=== PATIENT | female | born 1950 | race Caucasian/White ===

== ENCOUNTER → 2017-09-03 15:49 | Outpatient (CLI) | payer MEDICARE, SELFPAY ==
[2017-09-03 17:34] LABS: AST(SGOT) 16 U/L (15-37); Alanine Aminotransfer ALT/SGPT 20 U/L (13-56); Albumin, Serum 3.6 g/dL (3.2-5.0); Alkaline Phosphatase 78 U/L (45-117); Bilirubin, Direct 0.13 mg/dL (0.00-0.30); Globulin 4.1 g/dL (2.2-4.2); Protein, Total 7.7 g/dL (6.4-8.2)
== END ==
PROVIDERS: Family Provider Family Medicine; PCP Family Medicine; Visit Provider Dermatology
DX: Z79.899 Other long term (current) drug therapy (principal); L30.9 Dermatitis, unspecified
CPT/HCPCS: 36415; 80076

== ENCOUNTER 2017-09-17 21:01 | Emergency (ER) | payer MEDICARE, SELFPAY ==
[2017-09-17 21:02] VITALS: BP 130/67; PULSE 67; RESP 22; TEMP 36.9; O2SAT 98; BMI 28.3
--- NOTE | 2017-09-17 21:10 | CT_ITS ---
STUDY: CT ABDOMEN AND PELVIS WITH CONTRAST REASON FOR EXAM: Female, 67 years old. ABDOMINAL CRAMPING,NAUSEA AND VOMITING HX:GERD,HLD,MITRAL VALVE REPLACEMENT,HYSTERECTOMY RADIATION DOSAGE (If Supplied By Facility): CTDIvol = ( 16.15 ) mGy, DLP = ( 951.24 ) mGycm TECHNIQUE: Transaxial images were obtained from the dome of the diaphragm to the symphysis pubis without oral contrast. 100ML ml of Isovue 300 contrast was administered. Sagittal and coronal images were reconstructed. Individualized dose optimization techniques were used for this CT. COMPARISON: None. FINDINGS: The visualized lung bases are unremarkable. The heart is enlarged. Multiple median sternotomy wires are noted consistent for cardiac surgery. Normal liver. Normal gallbladder and extrahepatic biliary system. Normal spleen. Normal pancreas. Normal bilateral adrenal glands. Normal right kidney. Normal left kidney. Normal visualized stomach. There is mild enhancement and inflammation of the proximal jejunum. Minimal air-fluid levels are visualized in the small bowel. This may suggest an enteritis. There are multiple colonic diverticula consistent with diverticulosis. The appendix is visualized and appears normal. There are calcifications of the abdominal aorta and vascular structures. This is consistent for atherosclerotic disease. There is no abdominal aortic aneurysm. Normal inferior vena cava. Subcentimeter mesenteric lymph nodes. Normal urinary bladder. There is absence of the uterus consistent with a prior hysterectomy. 27 mm hypodensity near the left adnexa. This may be an ovarian cyst. Normal abdominal wall. There are degenerative changes of the osseous structures. CT/Abdomen/Pelvis W IV Cont ONLY IMPRESSION: There is mild enhancement and inflammation of the proximal jejunum. Minimal air-fluid levels are visualized in the small bowel. This may suggest an enteritis. Hysterectomy 27 mm hypodensity near the left adnexa. This may be an ovarian cyst. There are multiple diverticuli of the colon. There is diverticulosis but no radiographic signs for diverticulitis. Other findings as above. Electronically Signed: Bharath Ragsdale MD at 22:34 EDT , Service support ,
--- NOTE | 2017-09-17 21:10 | EKG12_ITS ---
Test Reason : AB PAIN Blood Pressure : / mmHG Vent. Rate : 055 BPM Atrial Rate : 055 BPM P-R Int : 212 ms QRS Dur : 110 ms QT Int : 468 ms P-R-T Axes : 067 051 071 degrees QTc Int : 447 ms Sinus bradycardia with 1st degree A-V block Incomplete left bundle branch block Borderline ECG Confirmed by LEANDRA KAUR, KAL ([id number]), editor managing newspaper ANTHONY LOPEZ ([id number]) on 09/21/2017 1:20:04 PM Referred By: BARRY Confirmed By:KAL MOBLEY MD
--- NOTE | 2017-09-17 21:14 | ED.DCSUM_ITS ---
- ER Visit Summary Date of Service: 09/17/17 Chief Complaint: Abdominal pain History of Present Illness: The patient is a 67 F presenting with abdominal pain starting this evening around 7 PM. She has had nausea and vomiting. She denies diarrhea or constipation. She states this began several hours after eating. She denies fever. Denies chest pain or shortness of breath. Denies urinary complaints. Denies other complaints. Physical Examination: Vitals are stable. Patient is afebrile. Alert no acute distress. HEENT exam is unremarkable. Neck is supple. Lungs are clear and equal bilaterally. Heart is regular rate and rhythm. Abdomen is soft mild diffuse tenderness with no rebound or guarding. Extremities are unremarkable. Skin is warm and dry. No focal neurologic deficit. Remainder of exam is unremarkable. Emergency Department Course and Treatment: Patient given morphine, Zofran with improvement. EKG sinus rhythm rate of 55 unchanged from previous. CBC, chemistries unremarkable. Liver lipase are normal. INR is 2.8. Troponin is negative. CT abdomen pelvis with IV only contrast shows mild enhancement and inflammation of the proximal jejunum. This may suggest an enteritis. Patient is resting comfortably in the ED. Repeat abdominal exam is soft and nontender with no rebound or guarding. She is given prescription for Bentyl. She is advised to follow-up with her primary care physician. She is advised strict return instructions should her symptoms worsen. She understands and is agreeable with plan. Disposition: Discharge home. Impression: Abdominal pain, enteritis This note was generated with [employer] dictation software. It may contain incorrect words, spelling, and punctuation that were not noted in review of the chart prior to signing ED Disposition - Plan for ED Patient: Chief Complaint: Abd Pain Instructions: ED Diet Vomiting Diarrhea Prescriptions: Dicyclomine HCl [Bentyl] 20 mg PO TIDAC PRN #20 capsule PRN Reason: Pain Referrals: Kishan Aguiar MD [Primary Care Provider] -
[2017-09-17] MEDS: Ondansetron 4 MG/2 ML Vial IV (21:16)
[2017-09-17] MEDS: Morphine 4 MG/ML Syringe IV (21:17)
[2017-09-17] MEDS: 0.9% Normal Saline 1,000 ML 1000 ML IV (21:17)
[2017-09-17 21:38] LABS: Absolute Lymphocyte Count 2.76 X10^3/ul (0.83-4.51); Absolute Neutrophil Count 7.1 X10^3/uL (2.0-7.7); Basophil# 0.03 X10^3/uL; Basophil% 0.3 % (0-1); Eosinophil# 0.26 X10^3/uL; Eosinophils% 2.4 % (0-5); Hematocrit 40.8 % (37-47); Hemoglobin 12.9 g/dl (12.0-15.0); Lymphocyte # 2.76 X10^3/ul (4.0); Lymphocyte % 25.3 % (19-41); Mean Corp Hgb Conc 31.6 g/gl (32-36); Mean Corpuscular Hgb 27.6 pg (27.0-32.0); Mean Corpuscular Volume 87.4 fL (81-99); Mean Platelet Vol. 9.2 fl (6.2-12.0); Monocyte# 0.76 X10^3/uL; Neutrophil # 7.08 X10^3/uL (2.7-7.7); Neutrophil % 64.8 % (47-70); Platelet Count 277 K/mm3 (150-450); RBC Distribution Width CV 14.5 % (11.6-14.6); Red Blood Count 4.67 M/mm3 (4.2-5.4); White Blood Count 10.9 K/mm3 (4.4-11.0)
[2017-09-17 21:54] LABS: POSITIVE COUNT NO; POSITIVE DIFFERENTIAL NO; POSITIVE MORPHOLOGY NO
[2017-09-17 21:58] LABS: AST(SGOT) 20 U/L (15-37); Alanine Aminotransfer ALT/SGPT 23 U/L (13-56); Albumin, Serum 3.6 g/dL (3.2-5.0); Alkaline Phosphatase 75 U/L (45-117); Anion Gap 10 (5-15); BUN 15 mg/dL (7-18); BUN/Creat Ratio 18.7 RATIO (10-20); Calcium,Total 8.9 mg/dL (8.5-10.1); Chloride 106 mmol/L (98-107); EST Glomerular Filtration Rate 75 mL/min (>60); Est Glom Filt Rate - Afr Amer 91 mL/min (>60); Estimated Creatinine Clearance 58.12 ml/min; Globulin 4.3 g/dL (2.2-4.2); Glucose 104 mg/dL (74-106); International Normalized Ratio 2.8; Lipase 213 U/L (73-393); Potassium 3.9 mmol/L (3.5-5.1); Protein, Total 7.9 g/dL (6.4-8.2); Prothrombin Time (Protime)PT. 29.7 SECONDS (11.7-14.9); Sodium Level 143 mmol/L (136-145)
[2017-09-17 22:37] LABS: Bacteria 0 SEEN /hpf (None Seen); Mucous, Urine 0 SEEN /hpf (<or=2+); Red Blood Cells-Urine 0 SEEN /hpf (0-5)
[2017-09-17 22:39] LABS: Color, Urine Yellow (Yellow); Glucose, Dipstick Normal (Normal); Ketone-Dipstick Negative (Negative); Leukocyte Esterase-Dipstick 500 /ul (Negative); Nitrite-Dipstick Negative (Negative); Occult Blood-Urine Negative /ul (Negative); Protein-Dipstick 15 mg/dl (Negative); Urine Bilirubin Dipstick Negative (Negative); Urine Clarity Sl. Cloudy (Clear); Urine Urobilinogen Normal (Normal)
[2017-09-17 22:46] LABS: Amorphous Sediment 1+ PHOS; Squamous Epithelial Cells - UA 0-5 SEEN /hpf (5-10); White Blood Cells 5-10 SEEN /hpf (0-5)
--- NOTE | 2017-09-17 22:52 | ED.DEP ---
ED Disposition - Plan for ED Patient: Chief Complaint: Abd Pain Instructions: ED Diet Vomiting Diarrhea Prescriptions: Ondansetron [Zofran Odt] 4 mg PO Q8H PRN PRN #10 tablet PRN Reason: Nausea Dicyclomine HCl [Bentyl] 20 mg PO TIDAC PRN #20 capsule PRN Reason: Pain Referrals: Kishan Aguiar MD [Primary Care Provider] -
--- NOTE | 2017-09-17 23:09 | ED.DEP ---
ED Disposition - Plan for ED Patient: Chief Complaint: Abd Pain Instructions: ED Diet Vomiting Diarrhea Prescriptions: Dicyclomine HCl [Bentyl] 20 mg PO TIDAC PRN #20 capsule PRN Reason: Pain Referrals: Kishan Aguiar MD [Primary Care Provider] -
[2017-09-17 23:54] VITALS: BP 135/77; PULSE 78; RESP 16; O2SAT 97
--- NOTE | 2017-09-17 23:54 | ED.RN ---
THIS RN IN TO DISCHARGE PT. PT'S SPOUSE HAS CONCERNS WITH TAKING PT HOME, WORRIED PAIN WILL RETURN AT HOME. DISCUSSED ENTERITIS IN GREAT DETAIL WITH PT AND SPOUSE INCLUDING SYMPTOMS, TREATMENT, HOME CARE, DIET, WHEN TO RETURN TO ED. BOTH PT AND SPOUSE REQUEST TO TALK SPEAK TO ED MD AGAIN PRIOR TO DC, MD AWARE.
[2017-09-18] MEDS: Dicyclomine 10 MG Capsule PO (00:29)
[2017-09-18 00:36] VITALS: BP 135/72; PULSE 64; RESP 15; O2SAT 96
--- NOTE | 2017-09-18 00:36 | ED.RN ---
PT AND SPOUSE REASSURED AND FEEL COMFORTABLE GOING HOME AFTER SPEAKING TO MD, HOME PACK MEDS GIVEN. PT AND SPOUSE AMBULATED OUT OF DEPT WITHOUT DIFFICULTY.
== END 2017-09-18 00:39 | disposition home or self-care (01) ==
LOC: ED 21:48
PROVIDERS: Emergency Provider Emergency Medicine; Family Provider Family Medicine; PCP Family Medicine
DX: K52.9 Noninfective gastroenteritis and colitis, unspecified (principal); I10 Essential (primary) hypertension; E78.00 Pure hypercholesterolemia, unspecified; I48.91 Unspecified atrial fibrillation; Z79.01 Long term (current) use of anticoagulants; M19.90 Unspecified osteoarthritis, unspecified site; Z79.899 Other long term (current) drug therapy
CPT/HCPCS: 74177; 80048; 80076; 81001; 83690; 84484; 85025; 85610; 87086; 87088; 93005; 96361; 96374; 96375; 99283; J7030; Q9967; J2405

== ENCOUNTER → 2017-09-30 07:44 | Outpatient (CLI) | payer MEDICARE, SELFPAY ==
[2017-09-30 10:03] LABS: International Normalized Ratio 2.1; Prothrombin Time (Protime)PT. 23.9 SECONDS (11.7-14.9)
== END ==
PROVIDERS: Family Provider Family Medicine; PCP Family Medicine; Visit Provider Internal Medicine Cardiovascular Disease
DX: Z95.2 Presence of prosthetic heart valve (principal); Z79.01 Long term (current) use of anticoagulants
CPT/HCPCS: 36415; 85610

== ENCOUNTER → 2017-10-05 08:39 | Outpatient (CLI) | payer MEDICARE, SELFPAY ==
[2017-10-05 09:55] LABS: International Normalized Ratio 2.3; Prothrombin Time (Protime)PT. 25.7 SECONDS (11.7-14.9)
== END ==
PROVIDERS: Family Provider Family Medicine; PCP Family Medicine; Visit Provider Internal Medicine Cardiovascular Disease
DX: Z95.2 Presence of prosthetic heart valve (principal); Z79.01 Long term (current) use of anticoagulants
CPT/HCPCS: 36415; 85610

== ENCOUNTER → 2017-10-27 10:47 | Outpatient (CLI) | payer MEDICARE, SELFPAY ==
--- NOTE | 2017-10-27 10:49 | ECHOD_ITS ---
Reason For Study: BICUSPID AV Procedure This was a 2D Doppler, Color Flow transthoracic echocardiogram. Exam performed in department. Left Ventricle Mild concentric left ventricular hypertrophy. The estimated ejection fraction is 60 %. Septal motion consistent with IVCD. No regional wall motion abnormalities noted. Right Ventricle Normal size and thickness. Normal systolic function. Atria The left atrium is severely enlarged. Normal right atrium. Normal atrial septum. Mitral Valve Peak transmitral valve gradient 19 mmHg. Mean transmitral valve gradient 5 mmHg. Stable appearing mechanical mitral valve apparatus. Normal prosthetic mitral valve. Tricuspid Valve Normal tricuspid valve. Trivial tricuspid valve insufficiency. Right ventricular systolic pressure estimated to be 33 mmHg. Aortic Valve Fusion of left and right coronary cusp with moderate thickening of remaining non-coronary cusp, c/w functional bicuspid aortic valve. Moderate restriction of the aortic valve. Severe aortic stenosis. Peak aortic valve gradient 51 mmHg. Mean aortic valve gradient 30 mmHg. Calculated aortic valve area (continuity equation) is 0.72 cm2. Pulmonic Valve Normal pulmonic valve. Trivial pulmonic valve insufficiency. Great Vessels Normal aortic root. Normal arch. Normal inferior vena cava. Inferior vena cava collapse with sniff. Pericardium/Pleural No pericardial effusion. MMode/2D Measurements & Calculations LVIDd: 4.6 cm IVSd: 1.4 cm LVOT diam: 2.1 cm LVIDs: 3.2 cm LVPWd: 1.1 cm LVOT area: 3.6 cm2 RVDd: 3.2 cm FS: 31.1 % Ao root diam: 2.9 cm LAV(MOD-bp): 99.2 ml EDV(MOD-sp4): 99.6 ml LAV(MOD-bp) Indexed: 55.5 ml/m2 ESV(MOD-sp4): 47.6 ml LAV(MOD-sp2): 90.0 ml EF(MOD-sp4): 52.3 % LAV(MOD-sp4): 107.9 ml SV(MOD-sp4): 52.1 ml LA A4 area: 27.2 cm2 RA A4 area: 15.7 cm2 Doppler Measurements & Calculations MV E max favio: 166.6 cm/sec Lat Peak E' Favio: 10.1 cm/sec Med Peak E' Favio: 7.2 cm/sec MV A max favio: 55.9 cm/sec E/E' lat: 16.5 E/E' med: 23.2 MV E/A: 3.0 MV V2 max: 214.9 cm/sec Ao V2 max: 356.3 cm/sec LV V1 max: 72.6 cm/sec MV max P.5 mmHg Ao max P.8 mmHg LV V1 max P.1 mmHg MV V2 mean: 93.4 cm/sec Ao V2 mean: 257.8 cm/sec LV V1 mean P.3 mmHg MV mean P.5 mmHg Ao mean P.0 mmHg LV V1 mean: 53.1 cm/sec MV V2 VTI: 46.5 cm Ao V2 VTI: 94.4 cm LV V1 VTI: 18.6 cm MVA(VTI): 1.4 cm2 DEBORAH(I,D): 0.71 cm2 DEBORAH(V,D): 0.73 cm2 SV(LVOT): 66.8 ml PA V2 max: 75.4 cm/sec TR max favio: 266.0 cm/sec TR max P.4 mmHg Interpretation Summary Mild concentric left ventricular hypertrophy. The estimated ejection fraction is 60 %. The left atrium is severely enlarged. Trivial tricuspid valve insufficiency. Right ventricular systolic pressure estimated to be 33 mmHg. Fusion of left and right coronary cusp with moderate thickening of remaining non-coronary cusp, c/w functional bicuspid aortic valve. Moderate to severe aortic stenosis. Peak aortic valve gradient 51 mmHg. Mean aortic valve gradient 30 mmHg. Moderate restriction of the aortic valve. Compared to echo report dated 05/23/2009, LV function and RVSP has remained the same, but aortic stenosis has gone from mild to moderate/severe. Normal prosthetic [place] mitral valve. Ordering Physician: Billy Murray Referring Physician: HAILEE العلي Performed By: Mayra Roman RDCS
== END ==
PROVIDERS: Family Provider Family Medicine; PCP Family Medicine; Visit Provider Internal Medicine Cardiovascular Disease
DX: I27.29 Other secondary pulmonary hypertension (principal)
CPT/HCPCS: 93306

== ENCOUNTER → 2017-11-17 15:38 | Outpatient (CLI) | payer MEDICARE, SELFPAY ==
--- NOTE | 2017-11-17 15:41 | RAD_ITS ---
STUDY: X-RAY - THORACIC SPINE REASON FOR EXAM: Female, 67 years old. Back pain TECHNIQUE: 3 view(s) of the thoracic spine were obtained. COMPARISON: None. FINDINGS: Median sternotomy, mild cardiomegaly. No acute intrathoracic process is evident. Posterior rims intact. Medial clavicle is intact. Vertebral body alignment normal. Mild osteopenia. Minimal disc degenerative features. Very slight superior endplate compression, minimal wedging, at approximately T9. This could be associated with Schmorl's node. Acuity uncertain. It is associated with mild anterior osteophytic lipping at the disc margin, a chronic degenerative features. RAD/Thoracic Spine 3 Views IMPRESSION: Minimal thoracic spondylosis. Mild superior endplate compression at the approximate T9 level of uncertain chronicity. Whether this represents a compression fracture, or superior endplate Schmorl's node is unknown. Correlate clinically for any symptoms of acute compression fracture. Follow-up MRI of the spine would provide optimal characterization. Electronically Signed: Ari Hernandez, at 11:01 EDT Tel , Service support ,
== END ==
PROVIDERS: Family Provider Family Medicine; PCP Family Medicine; Visit Provider Family Medicine
DX: M47.894 Other spondylosis, thoracic region (principal)
CPT/HCPCS: 72072

== ENCOUNTER → 2018-01-13 07:25 | Outpatient (CLI) | payer MEDICARE, SELFPAY ==
[2018-01-13 08:56] LABS: Hematocrit 40.9 % (37-47); Hemoglobin 13.1 g/dl (12.0-15.0); Mean Corpuscular Hgb 27.8 pg (27.0-32.0); Mean Corpuscular Volume 86.8 fL (81-99); Mean Platelet Vol. 9.1 fl (6.2-12.0); Platelet Count 297 K/mm3 (150-450); RBC Distribution Width CV 14.6 % (11.6-14.6); RBC Distribution Width SD 46.1 fl (35.1-43.9); Red Blood Count 4.71 M/mm3 (4.2-5.4); White Blood Count 6.4 K/mm3 (4.4-11.0)
[2018-01-13 09:02] LABS: Scan Indicated on CBC? Y/N NO
[2018-01-13 09:25] LABS: Anion Gap 7 (5-15); BUN 13 mg/dL (7-18); BUN/Creat Ratio 16.1 RATIO (10-20); Chloride 107 mmol/L (98-107); Creatinine, Serum 0.81 mg/dL (0.55-1.02); EST Glomerular Filtration Rate 75 mL/min (>60); Est Glom Filt Rate - Afr Amer 91 mL/min (>60); Glucose 89 mg/dL (74-106); Potassium 4.1 mmol/L (3.5-5.1); Sodium Level 142 mmol/L (136-145)
== END ==
PROVIDERS: Family Provider Family Medicine; PCP Family Medicine
DX: I35.0 Nonrheumatic aortic (valve) stenosis (principal); Z95.2 Presence of prosthetic heart valve; Z79.01 Long term (current) use of anticoagulants
CPT/HCPCS: 36415; 80048; 85027

== ENCOUNTER → 2018-01-20 07:59 | Outpatient (CLI) | payer MEDICARE, SELFPAY ==
[2018-01-20 08:49] LABS: AST(SGOT) 16 U/L (15-37); Alanine Aminotransfer ALT/SGPT 20 U/L (13-56); Albumin, Serum 3.7 g/dL (3.2-5.0); Alkaline Phosphatase 77 U/L (45-117); Bilirubin, Direct 0.13 mg/dL (0.00-0.30); Cholesterol 184 mg/dL (200); Globulin 4.1 g/dL (2.2-4.2); High Density Lipoprotein 65 mg/dL; Protein, Total 7.8 g/dL (6.4-8.2); Triglycerides 145 mg/dL; Very Low Density Lipoprotein 29 mg/dL (5-40)
== END ==
PROVIDERS: Physician Assistant Medical; Family Provider Family Medicine; PCP Family Medicine; Visit Provider Internal Medicine Cardiovascular Disease
DX: E78.5 Hyperlipidemia, unspecified (principal); Z79.899 Other long term (current) drug therapy
CPT/HCPCS: 36415; 80061; 80076

== ENCOUNTER → 2018-06-14 09:44 | Outpatient (CLI) | payer MEDICARE, SELFPAY ==
[2018-06-14 10:33] LABS: International Normalized Ratio 3.2; Prothrombin Time (Protime)PT. 32.8 SECONDS (11.7-14.9)
== END ==
PROVIDERS: Family Provider Family Medicine; PCP Family Medicine; Referring Provider Family Medicine; Visit Provider Family Medicine
DX: Z95.2 Presence of prosthetic heart valve (principal)
CPT/HCPCS: 36415; 85610

== ENCOUNTER → 2018-08-31 14:00 | Outpatient (CLI) | payer MEDICARE, SELFPAY ==
[2018-07-15 15:27] VITALS: BMI 27.4
--- NOTE | 2018-08-31 14:05 | RAD_ITS ---
STUDY: X-RAY - RIGHT FOOT CLINICAL: Chronic pain in fourth toe. TECHNIQUE: 3 view(s) of the foot. COMPARISON: None. FINDINGS: Normal talus, calcaneus, and tarsal bones. Normal visualized subtalar, talonavicular, calcaneocuboid, tarsal and tarsometatarsal articulations. There are healed osteotomies of the first and second metatarsals with orthopedic screws. There is mild joint space narrowing of the metatarsophalangeal joint of the great toe. Normal tibial and fibular sesamoid bones. Normal interphalangeal joint of the great toe. Normal phalanges of the great toe. Normal second through fifth metatarsophalangeal joints. There is osseous fusion of the second and third proximal interphalangeal joints. There is joint space narrowing of the fourth and fifth proximal interphalangeal joints. The soft tissue structures are unremarkable. 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 Mild arthrosis of the first metatarsophalangeal joint. Postoperative changes. Electronically Signed: Pete Jean MD at 13:16 EDT Tel , Service support ,
== END ==
PROVIDERS: Family Provider Family Medicine; PCP Family Medicine; Referring Provider Family Medicine; Visit Provider Family Medicine
DX: M19.071 Primary osteoarthritis, right ankle and foot (principal)
CPT/HCPCS: 73630

== ENCOUNTER → 2018-09-07 14:18 | Outpatient (CLI) | payer MEDICARE, SELFPAY ==
[2018-07-15 15:27] VITALS: BMI 27.4
--- NOTE | 2018-09-07 14:21 | RAD_ITS ---
STUDY: X-RAY - PELVIS REASON FOR EXAM: Female, 68 years old. Pain. TECHNIQUE: One view of the pelvis was obtained. COMPARISON: None. FINDINGS: There is a non-specific bowel gas pattern. Normal visualized soft tissue structures. Normal bilateral iliac wings, sacroiliac joints and visualized sacrum. Normal visualized bilateral superior and inferior pubic rami. Normal pubic symphysis. Normal ischial tuberosities. Normal visualized right femoral head. Normal right acetabulum. Normal right hip joint. Normal visualized left femoral head. Normal left acetabulum. Normal left hip joint. RAD/Pelvis 1 or 2 Views IMPRESSION: Normal x-ray examination of the pelvis. Electronically Signed: Shailesh Briceno MD at 14:36 EDT , Service support ,
--- NOTE | 2018-09-07 14:21 | RAD_ITS ---
HISTORY: Pain EXAM:XR Chest 2 Views: COMPARISON: 11/12/2015 FINDINGS: Shallow inspiration with chronic appearing bibasilar mild interstitial thickening. No acute infiltrate. No vascular congestion or pleural effusion. Mild cardiomegaly with aortic root stent graft in place. Previous median sternotomy. No pneumothorax. RAD/Chest PA and Lateral IMPRESSION: 1. No acute cardiopulmonary disease. 2. Mild cardiomegaly with thoracic aortic root stent graft in place. at 0257 Reported and signed by: Ernesto Mckoy MD Electronically Signed: Ernesto Mckoy, at 2:56 EDT Tel , Service support ,
[2018-09-07 17:42] LABS: Absolute Lymphocyte Count 1.16 X10^3/ul (0.83-4.51); Absolute Neutrophil Count 5.2 X10^3/uL (2.0-7.7); Basophil# 0.01 X10^3/uL; Basophil% 0.1 % (0-1); Eosinophil# 0.15 X10^3/uL; Eosinophils% 2.1 % (0-5); Hematocrit 39.2 % (37-47); Hemoglobin 11.8 g/dl (12.0-15.0); Lymphocyte # 1.16 X10^3/ul (4.0); Mean Corp Hgb Conc 30.1 g/gl (32-36); Mean Corpuscular Volume 86.5 fL (81-99); Mean Platelet Vol. 8.9 fl (6.2-12.0); Monocyte# 0.71 X10^3/uL; Monocyte% 9.8 % (0-10); Neutrophil # 5.21 X10^3/uL (2.7-7.7); Neutrophil % 71.7 % (47-70); Platelet Count 359 K/mm3 (150-450); RBC Distribution Width CV 15.1 % (11.6-14.6); RBC Distribution Width SD 47.2 fl (35.1-43.9); Red Blood Count 4.53 M/mm3 (4.2-5.4); White Blood Count 7.3 K/mm3 (4.4-11.0)
[2018-09-07 17:43] LABS: ALB/GLOB Ratio 0.8 RATIO (0.9-2.4); AST(SGOT) 16 U/L (15-37); Alanine Aminotransfer ALT/SGPT 17 U/L (13-56); Albumin, Serum 3.6 g/dL (3.2-5.0); Alkaline Phosphatase 82 U/L (45-117); Anion Gap 8 (5-15); BUN 13 mg/dL (7-18); BUN/Creat Ratio 18.7 RATIO (10-20); Calcium,Total 9.1 mg/dL (8.5-10.1); Chloride 104 mmol/L (98-107); EST Glomerular Filtration Rate 89 mL/min (>60); Est Glom Filt Rate - Afr Amer 107 mL/min (>60); Globulin 4.4 g/dL (2.2-4.2); Glucose 84 mg/dL (74-106); Potassium 3.8 mmol/L (3.5-5.1); Rheumatoid Factor < 10.0 IU/mL (<15); Sodium Level 139 mmol/L (136-145)
[2018-09-07 17:59] LABS: POSITIVE COUNT NO; POSITIVE DIFFERENTIAL NO; POSITIVE MORPHOLOGY NO
[2018-09-07 18:02] LABS: Erythrocyte Sedimentation Rate 24 mm/hr (0-30)
[2018-09-09 11:01] LABS: T4 Free Direct 0.95 ng/dL (0.76-1.46); Thyroid Stim Hormone (TSH) 0.48 uIU/mL (0.358-3.74)
[2018-09-09 15:35] LABS: ANTINUCLEAR ANTIBODIES DIRECT Negative (Negative)
[2018-09-14 20:07] LABS: QNTFERON TB Mitogen Value > 10.00 IU/mL (.); QNTFERON TB Nil Value 0.04 IU/mL (.); QNTFERON TB1+ Ag Value 0.04 IU/mL (.); QNTFERON TB2+ Ag Value 0.05 IU/mL (.)
[2018-09-15 11:43] LABS: CCP IgG Antibodies 9 units (0-19); HEPATITIS B SURFACE AG Negative (Negative); HLA B27 Negative (.); Hep B Surface Antibodies Non Reactive (.); Hep C Antibodies <0.1 s/co ratio (0.0-0.9); QNTIFERON TB Positive Criteria Negative (Negative)
== END ==
PROVIDERS: Family Provider Family Medicine; PCP Family Medicine; Referring Provider Internal Medicine Rheumatology; Visit Provider Internal Medicine Rheumatology
DX: L40.59 Other psoriatic arthropathy (principal); M15.9 Polyosteoarthritis, unspecified; L40.8 Other psoriasis; I48.0 Paroxysmal atrial fibrillation; K21.9 Gastro-esophageal reflux disease without esophagitis; Z79.899 Other long term (current) drug therapy
CPT/HCPCS: 36415; 71046; 72170; 80053; 81374; 84439; 84443; 85025; 85652; 86038; 86140; 86200; 86431; 86480; 86706; 86803; 87340

== ENCOUNTER → 2018-10-04 13:50 | Outpatient (CLI) | payer MEDICARE, SELFPAY ==
[2018-10-04 12:25] VITALS: BMI 27.4
[2018-10-04 14:01] LABS: Bacteria 0 SEEN /hpf (None Seen); Mucous, Urine 0 SEEN /hpf (<or=2+); Squamous Epithelial Cells - UA 0 SEEN /hpf (5-10); White Blood Cells 0 SEEN /hpf (0-5)
[2018-10-04 14:06] LABS: Color, Urine Yellow (Yellow); Glucose, Dipstick Normal (Normal); Ketone-Dipstick Negative (Negative); Leukocyte Esterase-Dipstick 25 /ul (Negative); Nitrite-Dipstick Negative (Negative); Occult Blood-Urine Negative /ul (Negative); Protein-Dipstick Negative (Negative); Urine Bilirubin Dipstick Negative (Negative); Urine Clarity Clear (Clear); Urine Urobilinogen Normal (Normal)
[2018-10-04 14:15] LABS: Red Blood Cells-Urine 0-5 SEEN /hpf (0-5)
== END ==
PROVIDERS: Family Provider Family Medicine; PCP Family Medicine; Referring Provider Physician Assistant Surgical; Visit Provider Physician Assistant Surgical
DX: N39.0 Urinary tract infection, site not specified (principal)
CPT/HCPCS: 81001; 87086

== ENCOUNTER → 2018-11-30 13:49 | Outpatient (CLI) | payer MEDICARE, SELFPAY ==
[2018-11-18 13:55] VITALS: BMI 24.8
[2018-11-30 15:29] LABS: Absolute Lymphocyte Count 1.19 X10^3/ul (0.83-4.51); Absolute Neutrophil Count 5.9 X10^3/uL (2.0-7.7); Basophil# 0.01 X10^3/uL; Basophil% 0.1 % (0-1); Eosinophil# 0.21 X10^3/uL; Eosinophils% 2.6 % (0-5); Hematocrit 38.6 % (37-47); Hemoglobin 12.2 g/dl (12.0-15.0); Lymphocyte # 1.19 X10^3/ul (4.0); Lymphocyte % 14.8 % (19-41); Mean Corp Hgb Conc 31.6 g/gl (32-36); Mean Corpuscular Hgb 26.7 pg (27.0-32.0); Mean Corpuscular Volume 84.5 fL (81-99); Monocyte# 0.72 X10^3/uL; Monocyte% 8.9 % (0-10); Neutrophil % 73.4 % (47-70); Platelet Count 283 K/mm3 (150-450); RBC Distribution Width CV 16.5 % (11.6-14.6); RBC Distribution Width SD 50.3 fl (35.1-43.9); Red Blood Count 4.57 M/mm3 (4.2-5.4); White Blood Count 8.1 K/mm3 (4.4-11.0)
[2018-11-30 15:34] LABS: POSITIVE COUNT NO; POSITIVE DIFFERENTIAL NO; POSITIVE MORPHOLOGY NO
[2018-11-30 15:43] LABS: AST(SGOT) 16 U/L (15-37); Alanine Aminotransfer ALT/SGPT 18 U/L (13-56); Albumin, Serum 3.7 g/dL (3.2-5.0); Alkaline Phosphatase 81 U/L (45-117); Anion Gap 5 (5-15); BUN 13 mg/dL (7-18); Calcium,Total 9.1 mg/dL (8.5-10.1); Chloride 109 mmol/L (98-107); Creatinine, Serum 0.76 mg/dL (0.55-1.02); EST Glomerular Filtration Rate 80 mL/min (>60); Est Glom Filt Rate - Afr Amer 96 mL/min (>60); Globulin 3.7 g/dL (2.2-4.2); Glucose 86 mg/dL (74-106); Potassium 3.6 mmol/L (3.5-5.1); Protein, Total 7.4 g/dL (6.4-8.2); Sodium Level 140 mmol/L (136-145)
== END ==
PROVIDERS: Family Provider Family Medicine; PCP Family Medicine; Visit Provider Internal Medicine Rheumatology
DX: L40.59 Other psoriatic arthropathy (principal); M15.9 Polyosteoarthritis, unspecified; L40.8 Other psoriasis; K21.9 Gastro-esophageal reflux disease without esophagitis; I48.0 Paroxysmal atrial fibrillation; F32.89 Other specified depressive episodes; E78.5 Hyperlipidemia, unspecified; J45.909 Unspecified asthma, uncomplicated; Z95.2 Presence of prosthetic heart valve; I44.7 Left bundle-branch block, unspecified; Z79.899 Other long term (current) drug therapy
CPT/HCPCS: 36415; 80053; 85025

== ENCOUNTER → 2018-12-07 15:34 | Outpatient (CLI) | payer MEDICARE, SELFPAY ==
[2018-11-18 13:55] VITALS: BMI 24.8
--- NOTE | 2018-12-07 15:58 | BD_ITS ---
STUDY: DUAL ENERGY X-RAY ABSORPTIOMETRY / DXA REASON FOR EXAM: Female, 68 years old. The patient is postmenopausal. Loss of height. TECHNIQUE: Bone Mineral Density (BMD) measurements of lumbar spine and bilateral hips were obtained. COMPARISON: Comparison is made with prior study dated February 04, 2011. FINDINGS: Lumbar Spine (L1-L4): g/cm2 (0.914) / T-score (-2.2) / Z-score (-0.6) Findings are suggestive of osteopenia with a moderate fracture risk. Left Femur Total: g/cm2 (0.708) / T-score (-2.4) / Z-score (-0.9) Left Femoral Neck: g/cm2 (0.669) / T-score (-2.7) / Z-score (-1.0) Right Femur Total: g/cm2 (0.703) / T-score (-2.4) / Z-score (-1.0) Right Femoral Neck: g/cm2 (0.661) / T-score (-2.7) / Z-score (-1.0) The T-Scores on the most recent prior examination were: Lumbar Spine (L1-L4): There has been worsening of bone density since the previous examination. Left Femur Total: which represents a worsening of 11.7%. Right Femur Total: which represents a worsening of 10.2%. BD/Dexa Bone Density Study IMPRESSION: The patient is considered osteoporotic as outlined below according to World Rich Organization (WHO) criteria with a high fracture risk. There has been worsening of bone density since the previous examination. Reference Information: The T-score is the number of standard deviations above or below the standard which is normal for young adults at their peak bone mineral density. The World Health Organization (WHO) interprets the T-scores as follows: Above -1 Normal bone density Between -1 and -2.5 Osteopenia Equal to / or below -2.5 Osteoporosis As a practical clinical guideline, osteopenia may be graded as follows: Mild -1 through -1.5 Moderate -1.6 through -2.0 Severe -2.1 through -2.4 The Z-score is the number of standard deviations above or below age-matched controls. A Z-score of less than -1.5 would be considered abnormal. References: 1. NIH Osteoporosis and Related Bone Diseases http://www.osteo.org 2. International Society for Clinical Densitometry http://www.iscd.org 3. National Osteoporosis Foundation http://www.nof.org Electronically Signed: Eric Villanueva, at 15:05 EDT , Service support ,
== END ==
PROVIDERS: Family Provider Family Medicine; PCP Family Medicine; Referring Provider Family Medicine; Visit Provider Family Medicine
DX: M85.80 Other specified disorders of bone density and structure, unspecified site (principal); Z79.52 Long term (current) use of systemic steroids
CPT/HCPCS: 77080

== ENCOUNTER → 2018-12-27 07:37 | Outpatient (CLI) | payer MEDICARE, SELFPAY ==
[2018-11-18 13:55] VITALS: BMI 24.8
--- NOTE | 2018-12-27 07:40 | ECHOD_ITS ---
Reason For Study: Valve Replacement Eval Procedure This was a 2D Doppler, Color Flow transthoracic echocardiogram. Exam performed in department. Left Ventricle Mild concentric left ventricular hypertrophy. The estimated ejection fraction is 60 %. Septal motion consistent with IVCD. No regional wall motion abnormalities noted. Right Ventricle Moderately dilated right ventricle. Normal systolic function. Atria The left atrium is moderately enlarged. Normal right atrium. Normal atrial septum. Mitral Valve Peak transmitral valve gradient 8 mmHg. Mean transmitral valve gradient 3 mmHg. Bioprosthetic mitral valve. Tricuspid Valve Normal tricuspid valve. Mild (1+) tricuspid valve insufficiency. Right ventricular systolic pressure estimated to be 34 mmHg. Aortic Valve Peak aortic valve gradient 10 mmHg. Mean aortic valve gradient 5 mmHg. Bioprosthetic aortic valve. Pulmonic Valve Normal pulmonic valve. Trivial pulmonic valve insufficiency. Great Vessels Normal aortic root. Normal arch. Normal inferior vena cava. Inferior vena cava collapse with sniff. Pericardium/Pleural No pericardial effusion. MMode/2D Measurements & Calculations LVIDd: 4.2 cm IVSd: 1.4 cm Ao root diam: 2.8 cm LVIDs: 3.1 cm LVPWd: 1.3 cm RVDd: 5.0 cm FS: 26.9 % LAV(MOD-bp): 90.7 ml LVAd ap4: 28.1 cm2 SV(MOD-sp4): 45.4 ml LAV(MOD-bp) Indexed: 53.0 ml/m2 EDV(MOD-sp4): 81.9 ml LAV(MOD-sp2): 91.7 ml EDV(sp4-el): 84.4 ml LAV(MOD-sp4): 81.7 ml LVAs ap4: 17.9 cm2 ESV(MOD-sp4): 36.5 ml ESV(sp4-el): 36.5 ml EF(MOD-sp4): 55.4 % EF(sp4-el): 56.7 % SV(sp4-el): 47.8 ml LA A4 area: 23.9 cm2 LA dimension(2D): 5.1 cm RA A4 area: 15.2 cm2 Time Measurements MV dec time: 0.15 sec Doppler Measurements & Calculations MV E max favio: 106.8 cm/sec Lat Peak E' Favio: 5.4 cm/sec Med Peak E' Favio: 5.8 cm/sec MV A max favio: 53.4 cm/sec E/E' lat: 19.7 E/E' med: 18.4 MV E/A: 2.0 MV V2 max: 139.7 cm/sec MV P1/2t max favio: 137.4 cm/sec Ao V2 max: 158.8 cm/sec MV max P.8 mmHg MV P1/2t: 95.0 msec Ao max P.1 mmHg MV V2 mean: 74.3 cm/sec Ao V2 mean: 107.0 cm/sec MV mean P.6 mmHg MV dec slope: 423.7 cm/sec2 Ao mean P.2 mmHg MV V2 VTI: 40.0 cm MVA(P1/2t): 2.3 cm2 Ao V2 VTI: 32.0 cm LV V1 max: 94.7 cm/sec PA V2 max: 70.3 cm/sec TR max favio: 277.8 cm/sec LV V1 max P.6 mmHg TR max P.9 mmHg Interpretation Summary Mild concentric left ventricular hypertrophy. The estimated ejection fraction is 60 %. Moderately dilated right ventricle. The left atrium is moderately enlarged. Normal functioning bioprosthetic mitral valve. Mild (1+) tricuspid valve insufficiency. Right ventricular systolic pressure estimated to be 34 mmHg. Normal functioning bioprosthetic aortic valve. Compared to echo report dated 10/27/2017, aortic and mitral valves have been replaced. LV function has remained the same. RVSP has remained the same. Ordering Physician: Billy Murray Referring Physician: Billy Murray Performed By: Wilma Franz, CANDACE, RVT
== END ==
PROVIDERS: Family Provider Family Medicine; PCP Family Medicine; Referring Provider Internal Medicine Cardiovascular Disease; Visit Provider Internal Medicine Cardiovascular Disease
DX: Z95.2 Presence of prosthetic heart valve (principal)
CPT/HCPCS: 93306

== ENCOUNTER → 2019-02-07 11:44 | Outpatient (CLI) | payer MEDICARE, SELFPAY ==
[2018-11-18 13:55] VITALS: BMI 24.8
--- NOTE | 2019-02-07 11:48 | RAD_ITS ---
STUDY: X-RAY - RIGHT KNEE REASON FOR EXAM: Female, 68 years old. Fall, right knee pain TECHNIQUE: 4 view(s) of the knee. COMPARISON: None. FINDINGS: Small suprapatellar knee joint effusion. Osseous structures are intact, mildly osteopenic. Periarticular soft tissues unremarkable. There are no significant degenerative features of the knee. RAD/Knee 4 or More Views IMPRESSION: Small effusion, no acute traumatic osseous injury, no significant DJD. Electronically Signed: Ari Hernandez MD at 13:49 EDT Tel , Service support ,
--- NOTE | 2019-02-07 11:48 | RAD_ITS ---
STUDY: X-RAY - LUMBAR SPINE REASON FOR EXAM: Female, 68 years old. Fall, lower back and tailbone pain. TECHNIQUE: 5 view(s) of the lumbar spine were obtained. COMPARISON: None. FINDINGS: Mild S-shaped sclerotic curvature of the lumbar spine. Preserved lordosis. Normal vertebral body height and alignment with no significant disc degenerative features. Mild low lumbar facet arthropathy L4-L5, L5-S1. Lower ribs, upper medial pelvis and sacrum within the field of view exhibit no acute process. No acute intra-abdominal process is evident. RAD/L/S Spine Min 4 Views IMPRESSION: Mild scoliosis and low lumbar facet arthropathy. No acute fracture or traumatic subluxation. Electronically Signed: Ari Hernandez MD at 13:52 EDT Tel , Service support ,
--- NOTE | 2019-02-07 11:50 | RAD_ITS ---
STUDY: X-RAY - SACRUM/COCCYX REASON FOR EXAM: Female, 68 years old. Fall, tailbone pain. TECHNIQUE: 4 view(s) of the sacrum and coccyx were obtained. COMPARISON: None. FINDINGS: Osteopenia. The sacral arcades appear intact and symmetric. The coccyx is midline in the frontal view. Mild symmetric SI joint degenerative changes. The coccyx is normally aligned without evident fracture in the lateral view. Normal sacrum. Mild low lumbar scoliosis. Normal low lumbar vertebral body height and alignment with no significant disc degeneration. Mild facet arthropathy L4-L5, L5-S1. RAD/Sacrum-Coccyx min 2 Views IMPRESSION: No evidence of acute sacrococcygeal injury. Electronically Signed: Ari Hernandez MD at 13:51 EDT Tel , Service support ,
== END ==
PROVIDERS: Family Provider Family Medicine; PCP Family Medicine; Referring Provider Family Medicine; Visit Provider Family Medicine
DX: M54.16 Radiculopathy, lumbar region (principal); M25.561 Pain in right knee; R35.0 Frequency of micturition
CPT/HCPCS: 72110; 72220; 73564; 87077; 87086; 87088; 87186

== ENCOUNTER → 2019-02-17 09:17 | Outpatient (CLI) | payer MEDICARE, SELFPAY ==
[2018-11-18 13:55] VITALS: BMI 24.8
--- NOTE | 2019-02-17 09:29 | US_ITS ---
STUDY: RENAL ULTRASOUND - COMPLETE REASON FOR EXAM: Female, 68 years old. Recurrent UTIs TECHNIQUE: Ultrasound evaluation of the kidneys was performed with real-time and static coates-scale imaging. COMPARISON: Previous study of 01/20/2014 FINDINGS: RIGHT KIDNEY: Normal location of the right kidney, which is normal in size. The right kidney measures 10.3 x 5.1 x 4.3 cm. There is a normal cortex of the right kidney. The renal cortex measures 1.2 cm. There is no right renal mass or cyst. There are no right renal calculi. There is no right hydronephrosis. DISTAL RIGHT URETER: There is non-visualization of the distal right ureter. There is no demonstrated right ureterovesical junction calculus. There is a visualized right ureteral jet. LEFT KIDNEY: Normal location of the left kidney, which is normal in size. The left kidney measures 10.4 x 5.3 x 4.6 cm. There is a normal cortex of the left kidney. The renal cortex measures 1.1 cm. There are 2 small left renal cysts measuring 7 x 8 x 7 mm and 10 x 9 x 9 mm respectively. There are no left renal calculi. There is no left hydronephrosis. DISTAL LEFT URETER: There is non-visualization of the distal left ureter. There is no demonstrated left ureterovesical junction calculus. There is a visualized left ureteral jet. BLADDER: The distended urinary bladder has a volume of 549 ml. The empty urinary bladder has a volume of 27 ml. There is a normal wall thickness of the distended urinary bladder. There is no demonstrated mass within the urinary bladder. There are no demonstrated bladder calculi. US/Kidney and Bladder IMPRESSION: 2 small cysts of the left kidney. The right kidney and urinary bladder appear within normal limits. Electronically Signed: Heraclio Way MD at 17:16 EDT , Service support ,
== END ==
PROVIDERS: Family Provider Family Medicine; PCP Family Medicine; Referring Provider Urology; Visit Provider Urology
DX: N39.0 Urinary tract infection, site not specified (principal)
CPT/HCPCS: 76770

== ENCOUNTER → 2019-02-24 08:59 | Outpatient (CLI) | payer MEDICARE, SELFPAY ==
[2018-11-18 13:55] VITALS: BMI 24.8
[2019-02-24 10:02] LABS: Absolute Lymphocyte Count 0.97 X10^3/uL (0.83-4.51); Absolute Neutrophil Count 5.9 X10^3/uL (2.0-7.7); Basophil# 0.03 X10^3/uL; Basophil% 0.4 % (0-1); Eosinophil# 0.23 X10^3/uL; Eosinophils% 2.9 % (0-5); Hematocrit 40.1 % (37-47); Hemoglobin 12.4 g/dL (12.0-15.0); Lymphocyte # 0.97 X10^3/ul (4.0); Lymphocyte % 12.1 % (19-41); Mean Corp Hgb Conc 30.9 g/dL (32-36); Mean Corpuscular Hgb 28.2 pg (27.0-32.0); Mean Corpuscular Volume 91.1 fL (81-99); Mean Platelet Vol. 8.8 fl (6.2-12.0); Monocyte# 0.89 X10^3/uL; Monocyte% 11.1 % (0-10); NRBC Flagged by Analyzer 0 % (0-5); Neutrophil % 73.3 % (47-70); Platelet Count 259 K/mm3 (150-450); RBC Distribution Width CV 15.1 % (11.6-14.6)
[2019-02-24 10:35] LABS: ALB/GLOB Ratio 0.9 RATIO (0.9-2.4); AST(SGOT) 13 U/L (15-37); Alanine Aminotransfer ALT/SGPT 16 U/L (13-56); Albumin, Serum 3.6 g/dL (3.2-5.0); Alkaline Phosphatase 96 U/L (45-117); Anion Gap 3 (5-15); BUN 14 mg/dL (7-18); BUN/Creat Ratio 17.4 RATIO (10-20); Calcium,Total 9.2 mg/dL (8.5-10.1); Chloride 106 mmol/L (98-107); EST Glomerular Filtration Rate 75 mL/min (>60); Est Glom Filt Rate - Afr Amer 91 mL/min (>60); Globulin 3.9 g/dL (2.2-4.2); Glucose 79 mg/dL (74-106); Protein, Total 7.5 g/dL (6.4-8.2); Sodium Level 139 mmol/L (136-145)
[2019-02-27 03:08] LABS: QNTFERON TB Mitogen Value > 10.00 IU/mL (.); QNTFERON TB Nil Value 0.09 IU/mL (.); QNTFERON TB1+ Ag Value 0.07 IU/mL (.); QNTFERON TB2+ Ag Value 0.07 IU/mL (.)
[2019-02-27 10:41] LABS: QNTIFERON TB Positive Criteria Negative (Negative)
== END ==
PROVIDERS: Family Provider Family Medicine; PCP Family Medicine; Referring Provider Internal Medicine Rheumatology; Visit Provider Internal Medicine Rheumatology
DX: L40.59 Other psoriatic arthropathy (principal); M15.9 Polyosteoarthritis, unspecified; L40.8 Other psoriasis; K21.9 Gastro-esophageal reflux disease without esophagitis; I48.0 Paroxysmal atrial fibrillation; Z79.899 Other long term (current) drug therapy
CPT/HCPCS: 36415; 80053; 85025; 86480

== ENCOUNTER 2019-03-19 08:07 | Emergency (ER) | payer MEDICARE, SELFPAY ==
[2018-11-18 13:55] VITALS: BMI 24.8
[2019-03-19 08:08] VITALS: BP 142/81; PULSE 75; RESP 17; TEMP 36.8; O2SAT 95; BMI 25.7
--- NOTE | 2019-03-19 09:28 | ED.VIS.GEN ---
History of Present Illness <Billy Perez - Last Filed: 03/19/19 13:02> Onset: Days Narrative: Patient presents to the ED with flare of her psoriasis. She states it is predominantly over her medial thighs. This is typically where she breaks out the most. She states that she does have diffuse patches also over her back and arms. She does see both a leather softener and hadoop infrastructure architect that she does have psoriatic arthritis. She states that she has been using her Kenalog cream and the prescribed prednisone that she has for flares. This is 20 mg daily as needed. She states it is not alleviating the flare. She states this does appear as her typical psoriasis. She denies any fever, chills, nausea, vomiting. <LauroannabelalessandroAparnaJoy - Last Filed: 03/19/19 13:32> Chief Complaint: Rash Past Medical History <Billy Perez - Last Filed: 03/19/19 13:02> Smoking Status: Never smoker <Joy Holloway - Last Filed: 03/19/19 13:32> - Allergies and Home Meds Allergies/Adverse Reactions: Allergies azithromycin [From Zithromax Z-Fermin] Allergy (Mild, Verified 03/19/19 08:08) Unknown bupropion [From Wellbutrin SR] Allergy (Mild, Verified 03/19/19 08:08) Unknown chamomile flower Allergy (Unknown, Verified 03/19/19 08:08) unknown Sulfa (Sulfonamide Antibiotics) Allergy (Verified 03/19/19 08:08) Unknown kiwi Adverse Reaction (Intermediate, Verified 03/19/19 08:08) unknown unknown nickel Adverse Reaction (Unknown, Verified 03/19/19 08:08) unknown quinine Adverse Reaction (Unknown, Verified 03/19/19 08:08) unknown adhesive Adverse Reaction (Verified 03/19/19 08:08) unknown omnicef Allergy (Mild, Uncoded 03/19/19 08:08) Unknown Primary Care Physician: Kishan Aguiar MD [Primary Care Provider] - Review of Systems General: Denies: Chills, Fever, Sweats Eyes: Denies: Visual changes - bilaterally, Diplopia ENT: Denies: Rhinorrhea, Sore throat Cardiovascular: Denies: Chest pain, Palpitations Respiratory: Denies: Dyspnea, Cough, Dyspnea on exertion Gastrointestinal: Denies: Abdominal pain, Nausea, Vomiting, Diarrhea, Melena, Hematochezia Genitourinary: Denies: Dysuria, Hematuria, Frequency Musculoskeletal: Denies: Back pain, Extremity Pain Skin: Reports: Rash. Denies: Wounds Neurological: Denies: Headache, Weakness, Numbness <Joy Holloway - Last Filed: 03/19/19 13:32> Physical Exam Vital Signs/Narrative: Vital Signs Pulse Resp BP Pulse Ox 03/19/19 10:23 62 15 124/77 H 98 <Billy Perez - Last Filed: 03/19/19 13:02> Vital Signs/Narrative: Vital Signs Temp Pulse Resp BP Pulse Ox 03/19/19 08:08 98.3 F 75 17 142/81 H 95 General: Well nourished, Well developed, No Acute Distress Head: Normocephalic, Atraumatic Eyes: Perrl, EOMI ENT: Moist mucous membranes, No rhinorrhea Neck: Supple, Nontender Cardiovascular: Regular rate, Regular rhythm, No murmurs Respiratory: No distress, CTA bilaterally, Chest nontender Abdomen: Soft, Nontender, Nondistended, Normal bowel sounds Back: Nontender, Normal Inspection Extremities: Nontender, No edema Skin: - - Large erythematous macular dry flaky patches with associated pustules predominantly to the bilateral medial thighs. Patient also has small macular erythematous dry flaky patches to her back diffusely. No induration, fluctuance, evidence of abscess. No lymphangitic streaking. No skin sloughing. Negative Nikolsky. Neurological: Alert, Oriented x3, Cranial nerves II-XII grossly intact, Normal Strength, Normal Sensation Psychological: Normal affect, Normal Mood <Joy Holloway - Last Filed: 03/19/19 13:32> Diagnostic/Tx/Re-eval - Medical Decision Making I performed a history and physical examination of the patient and discussed management plan with the physician nursing home assistant. I reviewed the physician nursing home assistant's note and agree with the documented findings and plan of care.She with a long-standing history of psoriasis. She sees dermatology as well as rheumatology. She states she is supposed to start a new medication on . She is concerned about the areas of psoriasis on her legs consider becoming increasingly red. She is concerned about infection. Will place her on Keflex and give her a dose of Kenalog. I have asked that she follow-up with her doctors before she starts her new medication. Billy Perez DO, MS, FACEP <Billy Perez - Last Filed: 03/19/19 13:02> - Medical Decision Making Patient presents to the ED with flare of her psoriasis. She was concerned to begin to develop a cellulitis that she does have a mechanical heart valve. She does state that her flares typically look like this. She will be treated with a IM Kenalog injection. She also was placed on a course of prophylactic Keflex. She will follow-up with her PCP. Educated on signs/symptoms to return to the ED and provided discharge instructions. She is agreeable to plan. Impression: Psoriasis. Mechanical heart valve Disposition: Home stable <Joy Holloway - Last Filed: 03/19/19 13:32> ED Disposition <Billy Perez - Last Filed: 03/19/19 13:02> <Joy Holloway - Last Filed: 03/19/19 13:32> - Plan for ED Patient: Disposition: Home or Assisted Living Diagnosis: Psoriasis Instructions: Psoriasis Prescriptions: Cephalexin [Keflex] 500 mg PO Q6 #28 cap Prescription Printed Referrals: Kishan Aguiar MD [Primary Care Provider] -
[2019-03-19] MEDS: Triamcinolone Acetonide 40 MG/ML Vial 60 MG IM (10:19)
[2019-03-19] MEDS: Cephalexin 250 MG Capsule 500 MG PO (10:20)
[2019-03-19 10:23] VITALS: BP 124/77; PULSE 62; RESP 15; O2SAT 98
== END 2019-03-19 10:24 | disposition home or self-care (01) ==
PROVIDERS: Emergency Provider Physician Assistant; Family Provider Family Medicine; PCP Family Medicine
DX: L40.50 Arthropathic psoriasis, unspecified (principal); Z95.2 Presence of prosthetic heart valve
CPT/HCPCS: 96372; 99283

== ENCOUNTER → 2019-05-31 13:15 | Outpatient (CLI) | payer MEDICARE, SELFPAY ==
[2019-05-31 12:29] LABS: AST(SGOT) 17 U/L (15-37); Alanine Aminotransfer ALT/SGPT 18 U/L (13-56); Albumin, Serum 3.6 g/dL (3.2-5.0); Alkaline Phosphatase 78 U/L (45-117); Anion Gap 3 (5-15); BUN 12 mg/dL (7-18); BUN/Creat Ratio 15.1 RATIO (10-20); Calcium,Total 9.1 mg/dL (8.5-10.1); Chloride 108 mmol/L (98-107); EST Glomerular Filtration Rate 76 mL/min (>60); Est Glom Filt Rate - Afr Amer 92 mL/min (>60); Globulin 3.6 g/dL (2.2-4.2); Glucose 85 mg/dL (74-106); Potassium 4.1 mmol/L (3.5-5.1); Protein, Total 7.2 g/dL (6.4-8.2); Sodium Level 142 mmol/L (136-145)
[2019-05-31 12:39] LABS: Absolute Lymphocyte Count 0.78 X10^3/uL (0.83-4.51); Absolute Neutrophil Count 4.5 X10^3/uL (2.0-7.7); Basophil# 0.03 X10^3/uL; Basophil% 0.5 % (0-1); Eosinophil# 0.13 X10^3/uL; Eosinophils% 2.1 % (0-5); Hematocrit 41.9 % (37-47); Lymphocyte # 0.78 X10^3/ul (4.0); Lymphocyte % 12.6 % (19-41); Mean Corpuscular Hgb 28.9 pg (27.0-32.0); Mean Corpuscular Volume 93.1 fL (81-99); Mean Platelet Vol. 9.1 fl (6.2-12.0); Monocyte# 0.71 X10^3/uL; Monocyte% 11.4 % (0-10); NRBC Flagged by Analyzer 0 % (0-5); Neutrophil # 4.53 X10^3/uL (2.7-7.7); Neutrophil % 72.9 % (47-70); Platelet Count 279 K/mm3 (150-450); RBC Distribution Width CV 14.7 % (11.6-14.6); RBC Distribution Width SD 49.7 fl (35.1-43.9); White Blood Count 6.2 K/mm3 (4.4-11.0)
== END ==
LOC: LAB 09:16 → MTLAB 13:15
PROVIDERS: Family Provider Family Medicine; PCP Family Medicine; Referring Provider Internal Medicine Rheumatology; Visit Provider Internal Medicine Rheumatology
DX: L40.59 Other psoriatic arthropathy (principal); I48.0 Paroxysmal atrial fibrillation; M15.9 Polyosteoarthritis, unspecified; L40.8 Other psoriasis; K21.9 Gastro-esophageal reflux disease without esophagitis; Z79.899 Other long term (current) drug therapy
CPT/HCPCS: 36415; 80053; 85025

== ENCOUNTER → 2019-11-04 14:03 | Outpatient (CLI) | payer MEDICARE, SELFPAY ==
[2019-11-04 14:06] LABS: Mucous, Urine 0 SEEN /hpf (<or=2+); Red Blood Cells-Urine 0 SEEN /hpf (0-5)
[2019-11-04 16:17] LABS: Color, Urine Yellow (Yellow); Glucose, Dipstick Normal (Normal); Ketone-Dipstick Negative (Negative); Leukocyte Esterase-Dipstick 500 /ul (Negative); Nitrite-Dipstick Positive (Negative); Occult Blood-Urine 25 /ul (Negative); Protein-Dipstick Negative (Negative); Specific Gravity, Urine 1.015 (1.002-1.030); Urine Bilirubin Dipstick Negative (Negative); Urine Clarity Cloudy (Clear); Urine Urobilinogen Normal (Normal)
[2019-11-04 17:42] LABS: Squamous Epithelial Cells - UA 0-5 SEEN /hpf (5-10); Transitional Epithelial - Ur 0-5 SEEN /hpf (0-5)
[2019-11-04 17:43] LABS: Bacteria 3+ /hpf (None Seen); White Blood Cells 50-100 SEEN /hpf (0-5)
== END ==
LOC: BFHLAB 14:04 → LABSPEC 15:49
PROVIDERS: PCP Family Medicine; Referring Provider Family Medicine; Visit Provider Family Medicine
DX: R35.0 Frequency of micturition (principal)
CPT/HCPCS: 81001; 87086; 87088; 87186

== ENCOUNTER → 2020-02-23 16:04 | Outpatient (CLI) | payer MEDICARE, SELFPAY ==
--- NOTE | 2020-02-23 14:00 | VUL_PTH ---
PATIENT: LOGAN CROSS LOC: [facility] U#:[id number] AGE/SX: 75/F ROOM: RE02/23/[address]: Dr. Dawson Mandujano MD : 1950 BED: DIS: SPEC #: [id number] RECD: 02/23/20 16:16 STATUS: REGINE GARCIA #: [id number] TURNER: 02/23/20 14:[address]: Dawson Mandujano DEPT: SURGICAL PATHOLOGY RECD BY: Naseem Finney ENTERED: 02/24/20 09:03 SP TYPE: VULVA BX OTHR DR: Dr. Kishan Aguiar MD Tissues: Vulva, NOS Procedures: Surgery Specimen Level IV HEADER OPERATION: Punch biopsy vulva PRE-OP DIAGNOSIS: Inflammation of vaginal and vulva N76.89 TISSUE SUBMITTED: Vulva biopsy MICROSCOPIC DIAGNOSIS Vulva, punch biopsy: Consistent with lichen sclerosus. Hyperkeratosis. Negative for dysplasia. SJ:walter 9/8/20 MICROSCOPIC DESCRIPTION Slides are reviewed. GROSS DESCRIPTION Received is one container labeled with the patient's name and not further designated. The specimen consists of a piece of flores-white skin measuring 0.6 x 0.3 x 0.1 cm. The specimen is totally submitted in one cassette. / ALFONZO:walter 02/24/20 TC:5 CPT: 20411
== END ==
PROVIDERS: PCP Family Medicine; Visit Provider Obstetrics & Gynecology
DX: N76.89 Other specified inflammation of vagina and vulva (principal)
CPT/HCPCS: 88305

== ENCOUNTER → 2020-05-03 08:57 | Outpatient (CLI) | payer MEDICARE, SELFPAY ==
[2020-05-03 12:55] LABS: Absolute Lymphocyte Count 1.26 X10^3/uL (0.83-4.51); Absolute Neutrophil Count 2.8 X10^3/uL (2.0-7.7); Basophil# 0.03 X10^3/uL; Basophil% 0.6 % (0-1); Eosinophil# 0.33 X10^3/uL; Eosinophils% 6.8 % (0-5); Hematocrit 39.5 % (37-47); Lymphocyte # 1.26 X10^3/ul (4.0); Lymphocyte % 25.9 % (19-41); Mean Corp Hgb Conc 30.4 g/dL (32-36); Mean Corpuscular Hgb 26.9 pg (27.0-32.0); Mean Corpuscular Volume 88.6 fL (81-99); Mean Platelet Vol. 9.2 fl (6.2-12.0); Monocyte% 10.3 % (0-10); NRBC Flagged by Analyzer 0 % (0-5); Neutrophil # 2.75 X10^3/uL (2.7-7.7); Neutrophil % 56.4 % (47-70); Platelet Count 244 K/mm3 (150-450); RBC Distribution Width CV 13.9 % (11.6-14.6); RBC Distribution Width SD 45.5 fl (35.1-43.9); Red Blood Count 4.46 M/mm3 (4.2-5.4); White Blood Count 4.9 K/mm3 (4.4-11.0)
[2020-05-03 13:21] LABS: AST(SGOT) 11 U/L (15-37); Alanine Aminotransfer ALT/SGPT 17 U/L (13-56); Albumin, Serum 3.5 g/dL (3.2-5.0); Alkaline Phosphatase 77 U/L (45-117); Bilirubin, Direct 0.11 mg/dL (0.00-0.30); Globulin 3.9 g/dL (2.2-4.2); Protein, Total 7.4 g/dL (6.4-8.2)
[2020-05-08 03:07] LABS: QNTFERON TB Mitogen Value > 10.00 IU/mL (.); QNTFERON TB Nil Value 0.04 IU/mL (.); QNTFERON TB1+ Ag Value 0.06 IU/mL (.); QNTFERON TB2+ Ag Value 0.07 IU/mL (.)
[2020-05-08 10:40] LABS: QNTIFERON TB Positive Criteria Negative (Negative)
== END ==
PROVIDERS: PCP Family Medicine; Visit Provider Ophthalmology
DX: L40.0 Psoriasis vulgaris (principal); L40.1 Generalized pustular psoriasis; Z79.899 Other long term (current) drug therapy
CPT/HCPCS: 36415; 80076; 85025; 86480

== ENCOUNTER → 2020-06-29 13:54 | Outpatient (CLI) | payer MEDICARE, SELFPAY | PROVIDERS: PCP Family Medicine; Visit Provider Family Medicine | DX: R35.0 Frequency of micturition (principal); R30.0 Dysuria | CPT/HCPCS: 87086; 87088 ==

== ENCOUNTER → 2020-08-23 11:44 | Outpatient (CLI) | payer MEDICARE, SELFPAY ==
[2020-08-23 15:16] LABS: Prothrombin Time (Protime)PT. 51.1 SECONDS (11.7-14.9)
[2020-08-23 15:36] LABS: International Normalized Ratio 5.6
[2020-08-25 13:18] LABS: Cancer Antigen 125 11.1 U/mL (0.0-38.1)
== END ==
PROVIDERS: PCP Family Medicine; Visit Provider Family Medicine
DX: N83.8 Other noninflammatory disorders of ovary, fallopian tube and broad ligament (principal); Z95.2 Presence of prosthetic heart valve
CPT/HCPCS: 36415; 85610; 86304

== ENCOUNTER → 2020-08-24 14:39 | Outpatient (CLI) | payer MEDICARE, SELFPAY ==
[2020-08-24 15:15] LABS: International Normalized Ratio 3.5; Prothrombin Time (Protime)PT. 35.2 SECONDS (11.7-14.9)
== END ==
PROVIDERS: PCP Family Medicine; Visit Provider Family Medicine
DX: Z95.2 Presence of prosthetic heart valve (principal)
CPT/HCPCS: 36415; 85610

== ENCOUNTER → 2020-08-28 13:55 | Outpatient (CLI) | payer MEDICARE, SELFPAY ==
[2020-08-28 15:45] LABS: International Normalized Ratio 3.3; Prothrombin Time (Protime)PT. 32.9 SECONDS (11.7-14.9)
== END ==
PROVIDERS: PCP Family Medicine; Visit Provider Family Medicine
DX: Z95.2 Presence of prosthetic heart valve (principal)
CPT/HCPCS: 36415; 85610

== ENCOUNTER 2020-12-31 11:32 | Emergency (ER) | payer MEDICARE, SELFPAY ==
[2020-12-31 11:33] VITALS: BP 139/72; PULSE 60; RESP 15; TEMP 36.4; O2SAT 92; BMI 25.2
[2020-12-31 11:42] VITALS: BP 139/72; PULSE 60; RESP 12; O2SAT 96
--- NOTE | 2020-12-31 11:48 | CT_ITS ---
EXAM: CT HEAD WITHOUT INTRAVENOUS CONTRAST : 1950 CLINICAL INDICATION: vertigo, headache TECHNIQUE: Multiple axial images were obtained of the head without intravenous contrast. This CT exam was performed using one or more of the following dose reduction techniques: automated exposure control, adjustment of the mA and/or kV according to patient size, and/or use of iterative reconstruction technique. This report was created using [employer] report generation technology. COMPARISON: None. FINDINGS: BRAIN AND EXTRA-AXIAL SPACES: Unremarkable. No intra- or extra-axial hemorrhage. No evidence of acute infarct. No intracranial mass or mass effect. There is preservation of the zamora/white matter interface. Posterior fossa structures are unremarkable. Ventricles are appropriate for age. No hydrocephalus. Basal cisterns are patent. BONES/JOINTS: Unremarkable. No discrete lytic or blastic abnormalities. SINUSES: Unremarkable as visualized. Clear. MASTOID AIR CELLS: Unremarkable. Clear. ORBITS: Visualized globes, extraocular muscles, optic nerves and retrobulbar fat appear unremarkable. CT/Brain/Head without Contrast IMPRESSION: Negative head/brain CT without intravenous contrast. Individualized dose optimization techniques were used for this CT. at 1239 Reported and signed by: Mulugeta Gordon MD Electronically Signed: Mulugeta Gordon MD at 12:38 EDT Tel , Service support ,
--- NOTE | 2020-12-31 11:48 | EKG12_ITS ---
Test Reason : DIZZINESS Blood Pressure : / mmHG Vent. Rate : 058 BPM Atrial Rate : 058 BPM P-R Int : 236 ms QRS Dur : 136 ms QT Int : 470 ms P-R-T Axes : 070 063 095 degrees QTc Int : 461 ms Sinus bradycardia with 1st degree A-V block Non-specific intra-ventricular conduction block Cannot rule out Anterior infarct , age undetermined Abnormal ECG Confirmed by ANNA KAUR, JOSÉ MIGUEL ([id number]), editor continuity and script KETAN SAHA ([id number]) on 01/02/2021 9:23:50 AM Referred By: MICHELE Confirmed By:JOSÉ MIGUEL CASTILLO MD
--- NOTE | 2020-12-31 11:50 | EX.ED.DYSGE1 ---
HPI History of Present Illness Chief Complaint: Dizziness Informant: patient Onset/Context/Timing Onset: Today Context: Sudden Onset (when turning after bending over to get laundry) Timing: Continuous Quality: off balance, dizzy, weak Current Severity: Mild Maximum Severity: Severe Worsened by: standing/walking Relieved by: lying down resting Associated Symptoms Associated Symptoms: nausea, headache. chronic L ear tinnitus. Narrative Narrative: Patient with some vertigo symptoms this morning that started suddenly with turning her head/body. States she has had the symptoms off and on in the past but it was more severe this morning and she felt weak, very off balance, and was difficult to stand for a while. She is feeling better now that she is resting. She has chronic tinnitus in the left ear. She denies any recent URI or earache but she does have a headache now. She is on warfarin for a mechanical heart valve. She denies any peripheral neurologic symptoms. Denies any loss of consciousness. No history of stroke. [facility] Medical History (Updated 12/31/20 @ 14:[address] 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 Non-rheumatic aortic stenosis Non-rheumatic tricuspid valve insufficiency Nonrheumatic mitral valve insufficiency Nonrheumatic mitral valve prolapse Other secondary pulmonary hypertension Paroxysmal atrial fibrillation Psoriasis Refusal of blood transfusions as patient is Confucianist Shortness of breath Typical atrial flutter Ventricular tachycardia Home Medications folic acid 1 mg tablet 1 mg PO QDAY 09/23/17 [History Last Taken Unknown] triamcinolone acetonide 0.1 % topical cream 1 applic TOPICAL .COMPLEX 04/30/18 [History Last Taken Unknown] methotrexate sodium 2.5 mg tablet 12.5 mg PO QWEEK tab 11/18/18 [History Last Taken Unknown] warfarin 2.5 mg tablet 2.5 mg PO .COMPLEX 11/18/18 [History Last Taken Unknown] paroxetine HCl 20 mg tablet 10 mg PO DAILY tab 05/11/19 [History Last Taken Unknown] simvastatin 40 mg tablet 40 mg PO QPM #90 tab 05/14/20 [Rx Last Taken Unknown] flecainide 150 mg tablet 150 mg PO BID #180 tab 07/02/20 [Rx Last Taken Unknown] meclizine 25 mg PO Q8H PRN PRN #20 tab 12/31/20 [Rx Last Taken Unknown] Allergy/AdvReac Type Severity Reaction Status Date / Time azithromycin Allergy Mild Unknown Verified 03/19/19 08:08 [From Zithromax Z-Fermin] bupropion Allergy Mild Unknown Verified 03/19/19 08:08 [From Wellbutrin SR] chamomile flower Allergy Unknown unknown Verified 03/19/19 08:08 Sulfa (Sulfonamide Allergy Unknown Verified 03/19/19 08:08 Antibiotics) kiwi AdvReac Intermediate unknown Verified 03/19/19 08:08 nickel AdvReac Unknown unknown Verified 03/19/19 08:08 quinine AdvReac Unknown unknown Verified 03/19/19 08:08 adhesive AdvReac unknown Verified 03/19/19 08:08 omnicef Allergy Mild Unknown Uncoded 03/19/19 08:08 Family History Father Cancer Mother Cancer Surgical History H/O fracture of wrist H/O hysterectomy with unilateral oophorectomy H/O mitral valve replacement with mechanical valve (10/01/95) Hammertoe of left foot History of left heart catheterization History of radiofrequency ablation procedure for cardiac arrhythmia (10/10/02) Retinal tear S/P TAVR (transcatheter aortic valve replacement) (02/24/18) Social History Smoking Status: Never smoker alcohol intake: current alcohol intake frequency: holidays/special occasions only substance use type: does not use ROS ROS ED Constitutional Constitutional ED: Reports as per HPI and malaise; Denies chills or fever(s) Eyes Eyes: Denies change in vision or diplopia ENT ENT ED: Reports tinnitus; Denies rhinorrhea or sore throat Cardiovascular Cardiovascular: Denies chest pain or palpitations Respiratory/Chest Respiratory/Chest: Denies cough or dyspnea Gastrointestinal Gastrointestinal: Reports nausea; Denies abdominal pain, diarrhea or vomiting Genitourinary Genitourinary ED: Denies dysuria or hematuria Musculoskeletal Musculoskeletal: Denies back pain or neck pain Integumentary Denies abscess or rash Neurologic Neurologic: Reports as per HPI, headache(s) and vertigo; Denies paresthesias or weakness Psychiatric Psychiatric: Denies anxiety or suicidal thoughts EXAM Physical Exam Const Vital Signs: 12/31/20 11:33 12/31/20 11:42 Temperature 97.6 F L Temperature Source Temporal Pulse Rate 60 60 Respiratory Rate 15 12 Blood Pressure 139/72 H 139/72 H Blood Pressure Mean 94 94 Pulse Ox 92 96 Oxygen Delivery Method Room Air Room Air Positive well nourished and well developed General Appearance ED: well developed and NAD HEENT Reports TM's normal bilaterally and moist mucous membranes normocephalic and atraumatic Eyes PERRL and EOMs intact bilaterally Eyes Narrative: Normal nonfatigable nystagmus bilaterally. No abnormal horizontal, vertical, or rotatory nystagmus. Neck full ROM and supple Resp normal respiratory effort and clear to auscultation bilaterally Cardio regular rate, regular rhythm and no murmurs GI non-tender and non-distended Auscultation: normoactive bowel sounds Palpation: soft Back/Spine no CVA tenderness General Back: other FROM Extremity normal to inspection General Extremety ED: Negative for edema, pulses abnormal or tenderness General Extremity: Negative for edema or pulses abnormal Neuro oriented x3, CN's II-XII intact bilaterally and no sensory deficits noted Neuro Narrative: Normal njatuj-gc-slca and jvxw-xh-xbtz bilaterally. Negative Ml-Hallpike bilaterally. Sensorium / Orientation: awake and alert Motor Exam: strength 5/5 throughout Skin no rashes or lesions noted and no wounds MDM MDM MDM Narrative Medical decision making narrative: Patient presents with symptoms that sound more like peripheral vertigo, however with her health problems and age I thought it was prudent to perform a work-up including CT of the head, to rule out causes of central vertigo. The work-up is negative and her blood pressure has been normal. After being given meclizine she feels much better, is able to stand and walk without significant symptoms. Reassured discharged home with prescription for meclizine to use as needed and recommend outpatient follow-up. Of note her INR is 1.9 a little subtherapeutic for someone with mechanical heart valve, she was advised to take a single extra dose of warfarin and have her INR checked next week or before the weekend. Lab Data Attestation: I reviewed the patient's lab results. Labs: Laboratory Results - last 24 hr 12/31/20 12/31/20 12/31/20 11:20 11:20 11:20 WBC 6.1 RBC 4.80 Hgb 13.2 Hct 40.4 MCV 84.2 MCH 27.5 MCHC 32.7 RDW Std Deviation 40.5 RDW Coeff of Teodora 13.2 Plt Count 271 MPV 8.8 Immature Gran % (Auto) 0.200 Neut % (Auto) 42.9 L Lymph % (Auto) 35.1 Terry % (Auto) 15.7 H Eos % (Auto) 5.6 H Baso % (Auto) 0.5 Absolute Neuts (auto) 2.6 Absolute Lymphs (auto) 2.13 Nucleated RBC % 0 PT 21.3 H INR 1.9 Sodium 137 Potassium 4.1 Chloride 104 Carbon Dioxide 26.0 Anion Gap 7 BUN 14 Creatinine 0.94 Estim Creat Clear Calc 47.40 Est GFR (MDRD) Af Amer 75 Est GFR (MDRD) Non-Af 62 BUN/Creatinine Ratio 14.8 Glucose 87 Calcium 9.8 Troponin I High Sens 8.1 Radiography Diagnostic Testing: Radiology Impression Brain CT 12/31/20 11:48 IMPRESSION: Negative head/brain CT without intravenous contrast. Individualized dose optimization techniques were used for this CT. at 1239 Reported and signed by: Mulugeta Gordon MD Electronically Signed: Mulugeta Gordon MD at 12:38 EDT Tel , Service support , Discharge Plan Triage Chief Complaint: Dizziness ED Provider: Trip Mart Dx/Rx/DC Orders Clinical Impression: Peripheral vertigo, unspecified Instructions: ED Vertigo, Unspecified Prescriptions: New meclizine [meclizine] 25 MG tablet 25 mg PO Q8H PRN PRN (Reason: Dizziness) Qty: 20 RF: 0 No Action folic acid 1 mg tablet 1 mg PO QDAY RF: 0 triamcinolone acetonide 0.1 % cream 1 applic TOPICAL .COMPLEX RF: 0 methotrexate sodium 2.5 mg tablet 12.5 mg PO QWEEK RF: 0 warfarin 2.5 mg tablet 2.5 mg PO .COMPLEX RF: 0 paroxetine HCl [Paxil] 20 mg tablet 10 mg PO DAILY RF: 0 simvastatin 40 mg tablet 40 mg PO QPM Qty: 90 RF: 3 flecainide 150 mg tablet 150 mg PO BID Qty: 180 RF: 3 Primary Care Provider: Kishan Aguiar Referrals: Kishan Aguiar MD [Primary Care Provider] - 1 Week if not improving Disposition Disposition: Home, Self Care
[2020-12-31 12:01] LABS: Absolute Lymphocyte Count 2.13 X10^3/uL (0.83-4.51); Absolute Neutrophil Count 2.6 X10^3/uL (2.0-7.7); Basophil# 0.03 X10^3/uL; Basophil% 0.5 % (0-1); Eosinophil# 0.34 X10^3/uL; Eosinophils% 5.6 % (0-5); Hematocrit 40.4 % (37-47); Hemoglobin 13.2 g/dL (12.0-15.0); Lymphocyte # 2.13 X10^3/ul (0.83-4.51); Lymphocyte % 35.1 % (19-41); Mean Corp Hgb Conc 32.7 g/dL (32-36); Mean Corpuscular Hgb 27.5 pg (27.0-32.0); Mean Corpuscular Volume 84.2 fL (81-99); Mean Platelet Vol. 8.8 fl (6.2-12.0); Monocyte# 0.95 X10^3/uL; Monocyte% 15.7 % (0-10); NRBC Flagged by Analyzer 0 % (0-5); Neutrophil # 2.61 X10^3/uL (2.7-7.7); Neutrophil % 42.9 % (47-70); Platelet Count 271 K/mm3 (150-450); RBC Distribution Width CV 13.2 % (11.6-14.6); RBC Distribution Width SD 40.5 fl (35.1-43.9); White Blood Count 6.1 K/mm3 (4.4-11.0)
[2020-12-31] MEDS: Meclizine HCl 25 MG Tablet PO (12:09)
[2020-12-31] MEDS: Metoclopramide 10 MG/2 ML Vial 5 MG IV (12:09)
[2020-12-31 12:14] LABS: International Normalized Ratio 1.9; Prothrombin Time (Protime)PT. 21.3 SECONDS (11.7-14.9)
[2020-12-31 12:20] LABS: Anion Gap 7 (5-15); BUN 14 mg/dL (7-18); BUN/Creat Ratio 14.8 RATIO (10-20); Calcium,Total 9.8 mg/dL (8.5-10.1); Chloride 104 mmol/L (98-107); Creatinine, Serum 0.94 mg/dL (0.55-1.02); EST Glomerular Filtration Rate 62 mL/min (>60); Est Glom Filt Rate - Afr Amer 75 mL/min (>60); Glucose 87 mg/dL (74-106); Potassium 4.1 mmol/L (3.5-5.1); Sodium Level 137 mmol/L (136-145); Troponin-I HS 8.1 pg/mL (3.0-53.7)
[2020-12-31 15:10] VITALS: BP 128/93; PULSE 63; RESP 16; O2SAT 98
== END 2020-12-31 15:11 | disposition home or self-care (01) ==
PROVIDERS: Emergency Provider Emergency Medicine; PCP Family Medicine
DX: H81.399 Other peripheral vertigo, unspecified ear (principal); E78.5 Hyperlipidemia, unspecified; Z79.899 Other long term (current) drug therapy; Z79.01 Long term (current) use of anticoagulants
CPT/HCPCS: 70450; 80048; 84484; 85025; 85610; 93005; 96374; 99285; A4216

== ENCOUNTER 2021-07-10 13:29 | Outpatient (CLI) | payer MEDICARE, SELFPAY | END 2021-07-10 23:59 | disposition short-term general hospital (02) | LOC: LABSPEC 07-11 07:49 | PROVIDERS: PCP Family Medicine; Visit Provider Family Medicine | DX: J02.9 Acute pharyngitis, unspecified (principal); R50.9 Fever, unspecified | CPT/HCPCS: 87635; U0003; U0005 ==

== ENCOUNTER 2021-08-29 14:07 | Outpatient (CLI) | payer MEDICARE, SELFPAY ==
--- NOTE | 2021-08-29 14:18 | BD_ITS ---
STUDY: DUAL ENERGY X-RAY ABSORPTIOMETRY / DXA REASON FOR EXAM: Female, 71 years old. M810. The patient is postmenopausal. TECHNIQUE: Bone Mineral Density (BMD) measurements of lumbar spine and bilateral hips were obtained. COMPARISON: Comparison is made with prior study dated 12/07/2018. FINDINGS: Lumbar Spine (L1-L4): g/cm2 (0.722) / T-score (-3.0) / Z-score (-0.7) Findings are suggestive of osteoporosis with a high fracture risk. Left Femur Total: g/cm2 (0.682) / T-score (-2.1) / Z-score (-0.5) Left Femoral Neck: g/cm2 (0.574) / T-score (-2.5) / Z-score (-0.5) Right Femur Total: g/cm2 (0.648) / T-score (-2.4) / Z-score (-0.8) Right Femoral Neck: g/cm2 (0.536) / T-score (-2.8) / Z-score (-0.9) The T-Scores on the most recent prior examination were: Lumbar Spine (L1-L4): There has been worsening of bone density since the previous examination. Left Femur Total: which represents an improvement of 4.9%. Right Femur Total: which represents an improvement of 0.4%. BD/Dexa Bone Density Study IMPRESSION: The patient is considered osteoporotic as outlined below according to World Rich Organization (WHO) criteria with a high fracture risk. There has been improvement of bone density since the previous examination. Reference Information: The T-score is the number of standard deviations above or below the standard which is normal for young adults at their peak bone mineral density. The World Health Organization (WHO) interprets the T-scores as follows: Above -1 Normal bone density Between -1 and -2.5 Osteopenia Equal to / or below -2.5 Osteoporosis As a practical clinical guideline, osteopenia may be graded as follows: Mild -1 through -1.5 Moderate -1.6 through -2.0 Severe -2.1 through -2.4 The Z-score is the number of standard deviations above or below age-matched controls. A Z-score of less than -1.5 would be considered abnormal. References: 1. NIH Osteoporosis and Related Bone Diseases www osteo.org 2. International Society for Clinical Densitometry www iscd.org 3. National Osteoporosis Foundation www nof.org Electronically Signed: Eric Villanueva MD at 14:23 EST ,
== END 2021-08-29 23:59 | disposition home or self-care (01) ==
LOC: OPBD 14:08
PROVIDERS: PCP Family Medicine; Visit Provider Family Medicine
DX: M81.0 Age-related osteoporosis without current pathological fracture (principal)
CPT/HCPCS: 77080

== ENCOUNTER 2021-09-16 14:38 | Outpatient (CLI) | payer MEDICARE, SELFPAY | END 2021-09-16 23:59 | disposition home or self-care (01) | PROVIDERS: PCP Family Medicine; Referring Provider Obstetrics & Gynecology; Visit Provider Obstetrics & Gynecology | DX: L29.2 Pruritus vulvae (principal) ==

== ENCOUNTER → 2022-02-04 | Outpatient (CLI) | payer MEDICARE, SELFPAY ==
--- NOTE | 2022-02-04 15:45 | RAD_ITS ---
INDICATION: FOOT PAIN EXAMINATION/TECHNIQUE: X-RAY - RIGHT XR Foot Min 3 Views 3 VIEWS COMPARISON: 08/31/2018. FINDINGS: Transverse fracture across the mid diaphysis of the mid phalanx of the second digit. No significant displacement or angulation of the fracture fragments is seen. Fusion of the proximal interphalangeal joint of the second digit is visualized. Internal fixation of the heads of the first and second metatarsal bones is visualized, no evidence of lucency surrounding the prosthesis, no change in the prosthesis is in comparison to the prior study. Bone alignment is unremarkable, no evidence of dislocation, no evidence of displaced fracture is seen. Degenerative bone changes are visualized. Narrowing of the interphalangeal joints is visualized. Soft tissue swelling visualized most prominent overlying the distal interphalangeal joint of the first and second digits, no evidence of underlying osseous abnormality is visualized, subarticular lucencies demonstrating no change in comparison to the prior study.. No abnormal density is visualized in the overlying soft tissues. RAD/Foot min 3 Views IMPRESSION: Transverse fracture across the mid diaphysis of the middle phalanx of the second digit of the right foot, no evidence of displacement or angulation of the fracture fragments is seen. Soft tissue swelling visualized overlying the distal phalanges of the first and second digit, no evidence of fracture involving the first digit is seen. Degenerative bone changes. Electronically Signed: Jarad Garcia MD at 16:07 EDT ,
== END | disposition home or self-care (01) ==
LOC: MTRAD 15:44
PROVIDERS: PCP Family Medicine; Referring Provider Family Medicine; Visit Provider Family Medicine
DX: M79.671 Pain in right foot (principal)
CPT/HCPCS: 73630

== ENCOUNTER → 2022-03-20 | Outpatient (CLI) | payer MEDICARE, SELFPAY | END | disposition home or self-care (01) | PROVIDERS: PCP Family Medicine; Visit Provider Dermatology | DX: L40.0 Psoriasis vulgaris (principal); L40.59 Other psoriatic arthropathy; L40.1 Generalized pustular psoriasis; L40.8 Other psoriasis; J34.0 Abscess, furuncle and carbuncle of nose; S40.862A Insect bite (nonvenomous) of left upper arm, initial encounter; S40.861A Insect bite (nonvenomous) of right upper arm, initial encounter; S00.86XA Insect bite (nonvenomous) of other part of head, initial encounter; R21 Rash and other nonspecific skin eruption; Z79.899 Other long term (current) drug therapy | CPT/HCPCS: 87070; 87077; 87186; 87205 ==

== ENCOUNTER → 2022-03-26 | Outpatient (CLI) | payer MEDICARE, SELFPAY ==
[2022-03-26 12:25] LABS: Absolute Lymphocyte Count 1.39 X10^3/uL (0.83-4.51); Absolute Neutrophil Count 2.3 X10^3/uL (2.0-7.7); Basophil# 0.03 X10^3/uL; Basophil% 0.6 % (0-1); Eosinophil# 0.35 X10^3/uL; Eosinophils% 7.5 % (0-5); Hematocrit 40.8 % (37-47); Hemoglobin 12.8 g/dL (12.0-15.0); Lymphocyte # 1.39 X10^3/ul (0.83-4.51); Lymphocyte % 29.7 % (19-41); Mean Corp Hgb Conc 31.4 g/dL (32-36); Mean Corpuscular Hgb 27.1 pg (27.0-32.0); Mean Corpuscular Volume 86.4 fL (81-99); Mean Platelet Vol. 9.1 fl (6.2-12.0); Monocyte# 0.62 X10^3/uL; Monocyte% 13.2 % (0-10); NRBC Flagged by Analyzer 0 % (0-5); Neutrophil # 2.27 X10^3/uL (2.7-7.7); Neutrophil % 48.6 % (47-70); Platelet Count 247 K/mm3 (150-450); RBC Distribution Width CV 13.4 % (11.6-14.6); RBC Distribution Width SD 42.2 fl (35.1-43.9); Red Blood Count 4.72 M/mm3 (4.2-5.4); White Blood Count 4.7 K/mm3 (4.4-11.0)
[2022-03-26 12:52] LABS: AST(SGOT) 18 U/L (15-37); Alanine Aminotransfer ALT/SGPT 17 U/L (13-56); Albumin, Serum 3.7 g/dL (3.2-5.0); Alkaline Phosphatase 69 U/L (45-117); Bilirubin, Direct 0.15 mg/dL (0.00-0.30); Globulin 4.1 g/dL (2.2-4.2); Protein, Total 7.8 g/dL (6.4-8.2)
[2022-03-29 10:08] LABS: QNTFERON TB Mitogen Value > 10.00 IU/mL (.); QNTFERON TB Nil Value 0.11 IU/mL (.); QNTFERON TB1+ Ag Value 0.19 IU/mL (.); QNTFERON TB2+ Ag Value 0.16 IU/mL (.)
[2022-03-29 10:33] LABS: QNTIFERON TB Positive Criteria Negative (Negative)
== END | disposition home or self-care (01) ==
LOC: BFHLAB 09:51
PROVIDERS: PCP Family Medicine; Visit Provider Dermatology
DX: L40.0 Psoriasis vulgaris (principal); L40.59 Other psoriatic arthropathy; L40.1 Generalized pustular psoriasis; L40.8 Other psoriasis; Z79.899 Other long term (current) drug therapy
CPT/HCPCS: 36415; 80076; 85025; 86480

== ENCOUNTER → 2022-05-01 | Outpatient (CLI) | payer MEDICARE, SELFPAY ==
--- NOTE | 2022-05-01 13:19 | BI_ITS ---
MAMMOGRAPHY - BILATERAL SCREENING REASON FOR EXAM: Female, 72 years old. Routine annual screening examination. PERTINENT HISTORY: Non-contributory. TECHNIQUE: Digital bilateral breast mariza (3D mammographic acquisition) in the CC and MLO projections. 2-D mediolateral oblique (MLO) and craniocaudad (CC) views of both breasts were obtained. CAD: Full Field Digital Mammography with Computer Added Detection was performed. COMPARISON: Comparison is made with prior study dated 07/01/2017 and 12/11/2015. FINDINGS: Breast Composition: The breasts are heterogeneously dense, which may obscure small masses. There are no dominant masses or suspicious calcifications. No other significant abnormalities are identified. There has been no significant change since the prior study. BI/SCRN MAMM (CAD)W/MARIZA BILAT IMPRESSION: Stable bilateral screening mammogram. Yearly follow-up mammogram recommended. (A) ASSESSMENT CATEGORY: BIRADS Category 1: Negative. A letter regarding these results will be sent to the patient by the facility within 30 days. Approximately 10% of breast cancers are not detected by mammography. A normal mammogram should not delay biopsy of a clinically suspicious abnormality. [id number] Electronically Signed: Eric Villanueva MD at 8:17 EST ,
== END | disposition home or self-care (01) ==
LOC: OPBI 13:17
PROVIDERS: PCP Family Medicine; Referring Provider Obstetrics & Gynecology; Visit Provider Obstetrics & Gynecology
DX: Z12.31 Encounter for screening mammogram for malignant neoplasm of breast (principal)
CPT/HCPCS: 77063; 77067

== ENCOUNTER → 2022-08-04 | Outpatient (CLI) | payer MEDICARE, SELFPAY ==
[2022-08-04 12:13] LABS: Absolute Lymphocyte Count 1.52 X10^3/uL (0.83-4.51); Absolute Neutrophil Count 2.5 X10^3/uL (2.0-7.7); Basophil# 0.03 X10^3/uL; Basophil% 0.6 % (0-1); Eosinophil# 0.28 X10^3/uL; Eosinophils% 5.6 % (0-5); Hematocrit 39.9 % (37-47); Hemoglobin 12.6 g/dL (12.0-15.0); Lymphocyte # 1.52 X10^3/ul (0.83-4.51); Lymphocyte % 30.6 % (19-41); Mean Corp Hgb Conc 31.6 g/dL (32-36); Mean Corpuscular Hgb 27.8 pg (27.0-32.0); Mean Corpuscular Volume 87.9 fL (81-99); Mean Platelet Vol. 9.2 fl (6.2-12.0); Monocyte# 0.64 X10^3/uL; Monocyte% 12.9 % (0-10); NRBC Flagged by Analyzer 0 % (0-5); Neutrophil # 2.48 X10^3/uL (2.7-7.7); Neutrophil % 49.9 % (47-70); Platelet Count 239 K/mm3 (150-450); RBC Distribution Width CV 13.7 % (11.6-14.6); RBC Distribution Width SD 44.5 fl (35.1-43.9); Red Blood Count 4.54 M/mm3 (4.2-5.4)
[2022-08-04 12:47] LABS: Anion Gap 7 (5-15); BUN 26 mg/dL (7-18); BUN/Creat Ratio 24.1 RATIO (10-20); Calcium,Total 9.7 mg/dL (8.5-10.1); Chloride 107 mmol/L (98-107); Creatinine, Serum 1.08 mg/dL (0.55-1.02); EST Glomerular Filtration Rate 53 mL/min (>60); Est Glom Filt Rate - Afr Amer 64 mL/min (>60); Glucose 95 mg/dL (74-106); Magnesium 1.6 mg/dL (1.6-2.6); Potassium 4.1 mmol/L (3.5-5.1); Sodium Level 141 mmol/L (136-145); Thyroid Stim Hormone (TSH) 0.62 uIU/mL (0.358-3.74)
[2022-08-04 17:57] LABS: Xtra Tube EP Lab EXTRA TUBE
== END | disposition home or self-care (01) ==
PROVIDERS: Visit Provider Nurse Practitioner Family
DX: R53.83 Other fatigue (principal); I48.0 Paroxysmal atrial fibrillation; I44.7 Left bundle-branch block, unspecified; E78.5 Hyperlipidemia, unspecified; I34.0 Nonrheumatic mitral (valve) insufficiency; Z79.01 Long term (current) use of anticoagulants
CPT/HCPCS: 36415; 80048; 83735; 84443; 85025

== ENCOUNTER → 2022-09-11 | Outpatient (CLI) | payer MEDICARE, SELFPAY ==
--- NOTE | 2022-09-11 11:39 | RAD_ITS ---
STUDY: X-RAY CHEST REASON FOR EXAM: Female, 72 years old. COUGH TECHNIQUE: PA and lateral COMPARISON: September 07, 2018 FINDINGS: Reticulonodular interstitial thickening in the right lower lobe and to a lesser extent the right upper lobe new since previous study which is suspicious for inflammatory changes. There is no demonstrated pleural abnormality. Postop change status post median sternotomy and aortic valve graft Heart size is normal.. Normal mediastinum and colin. Normal visualized pulmonary arteries. Normal visualized aortic arch and descending thoracic aorta. Dorsal spine demonstrates degenerative change. Normal visualized ribs, clavicles, and shoulders. There is no demonstrated abnormality of the visualized soft tissue structures of the upper abdomen. RAD/Chest PA and Lateral IMPRESSION: Reticulonodular interstitial thickening with right lower lobe and to lesser extent the right upper lobe which is new finding since prior exam and may represent acute inflammatory changes perhaps viral pneumonia. Clinical correlation recommended. Electronically Signed: Joni Benitez MD at 17:19 EDT ,
== END | disposition home or self-care (01) ==
PROVIDERS: PCP Family Medicine; Referring Provider Family Medicine; Visit Provider Family Medicine
DX: R05.3 Chronic cough (principal)
CPT/HCPCS: 71046

== ENCOUNTER → 2022-09-30 | Outpatient (CLI) | payer MEDICARE, SELFPAY ==
[2022-10-03 10:47] LABS: URINE HISTOPLASMA ANTIGEN <0.5 (<0.5 ng/mL)
== END | disposition home or self-care (01) ==
LOC: MTLAB 08:31
PROVIDERS: PCP Family Medicine; Referring Provider Family Medicine; Visit Provider Family Medicine
DX: R05.9 Cough, unspecified (principal)
CPT/HCPCS: 87385

== ENCOUNTER 2022-10-17 15:11 | Outpatient (CLI) | payer MEDICARE, SELFPAY ==
[2022-10-21 20:08] LABS: Hepatitis B Core Ab Total Negative (Negative); QNTFERON TB Mitogen Value > 10.00 IU/mL (.); QNTFERON TB1+ Ag Value 0.17 IU/mL (.); QNTFERON TB2+ Ag Value 0.21 IU/mL (.); QNTIFERON TB Positive Criteria Negative (Negative)
== END 2022-10-17 23:59 | disposition home or self-care (01) ==
LOC: MTLAB 15:13
PROVIDERS: PCP Family Medicine
DX: L40.0 Psoriasis vulgaris (principal); L82.1 Other seborrheic keratosis; Z79.899 Other long term (current) drug therapy
CPT/HCPCS: 36415; 86480; 86704

== ENCOUNTER → 2022-11-04 | Outpatient (CLI) | payer MEDICARE, SELFPAY | END | disposition home or self-care (01) | LOC: BFHLAB 15:55 → LAB.FUTURE 15:56 | PROVIDERS: PCP Family Medicine; Referring Provider Family Medicine; Visit Provider Family Medicine | DX: R53.83 Other fatigue (principal); E55.9 Vitamin D deficiency, unspecified; Z51.81 Encounter for therapeutic drug level monitoring ==

== ENCOUNTER 2022-12-10 13:24 | Inpatient (IN) | payer MEDICARE, SELFPAY ==
[2022-12-10] VITALS (10 sets, daily range): BP systolic 115–173; BP diastolic 55–73; PULSE 54–80; RESP 10–24; TEMP 35.9–36.8; O2SAT 86–100; BMI 26.5; BMI 25.5
--- NOTE | 2022-12-10 13:55 | RAD_ITS ---
STUDY: XR Chest 1 View 12/10/2022 1:54 PM REASON FOR EXAM: Female, 72 years old. CHEST PAIN chest pain COMPARISON: 3. TECHNIQUE: XR Chest 1 View FINDINGS: There is no demonstrated pleural abnormality. There are multiple median sternotomy wires. Reticulonodular interstitial thickening with right lower lobe and left lower lobe which is unchanged finding since prior exam and may represent acute inflammatory changes perhaps viral pneumonia. Enlarged heart size. Normal mediastinum. Normal colin. Prominent appearing increased interstitial lung markings. Normal visualized pulmonary arteries. There is atherosclerotic calcification of the aortic arch with tortuosity. There are diffuse degenerative changes of the visualized thoracic spine. There is degenerative osteoarthritis of the bilateral shoulders. There is no demonstrated abnormality of the visualized soft tissue structures of the upper abdomen. RAD/Chest 1 View (Portable) IMPRESSION: Bilateral pneumonia. Electronically Signed: Bharath Ragsdale MD at 14:29 EDT ,
[2022-12-10 13:56] LABS: Absolute Lymphocyte Count 2.21 X10^3/uL (0.83-4.51); Absolute Neutrophil Count 3.3 X10^3/uL (2.0-7.7); Basophil# 0.05 X10^3/uL; Basophil% 0.8 % (0-1); Eosinophil# 0.28 X10^3/uL; Eosinophils% 4.3 % (0-5); Hematocrit 41.5 % (37-47); Lymphocyte # 2.21 X10^3/ul (0.83-4.51); Lymphocyte % 34.1 % (19-41); Mean Corp Hgb Conc 31.3 g/dL (32-36); Mean Corpuscular Volume 89.4 fL (81-99); Mean Platelet Vol. 8.9 fl (6.2-12.0); Monocyte# 0.62 X10^3/uL; Monocyte% 9.6 % (0-10); NRBC Flagged by Analyzer 0 % (0-5); Neutrophil % 50.7 % (47-70); Platelet Count 277 K/mm3 (150-450); RBC Distribution Width CV 13.7 % (11.6-14.6); RBC Distribution Width SD 44.8 fl (35.1-43.9); Red Blood Count 4.64 M/mm3 (4.2-5.4); White Blood Count 6.5 K/mm3 (4.4-11.0)
[2022-12-10 14:03] LABS: Prothrombin Time (Protime)PT. 31.3 SECONDS (11.7-14.9)
--- NOTE | 2022-12-10 14:09 | EX.ED.DYSGE1 ---
HPI History of Present Illness Chief Complaint: Palpitations Narrative Narrative: 72-year-old female with history of aortic stenosis, A-fib, a flutter, TAVR presenting with lightheadedness and near syncope. Patient states she was in the store and started to feel like she was lightheaded and tried to make it out to her car and her symptoms got much worse. At that point she called 911. She states it started to look like everything was going white. EMS arrived and she states they transported her to the hospital. She states she feels currently feels better. She denies any chest pain but states she was short of breath a little bit. She has been otherwise healthy recently. No fevers or chills. No coughing or shortness of breath. No black or bloody stools. 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 Lumbar strain Nonrheumatic mitral valve insufficiency Nonrheumatic mitral valve prolapse Paroxysmal atrial fibrillation Peripheral vertigo, unspecified Psoriasis Refusal of blood transfusions as patient is Confucianist Typical atrial flutter Ventricular tachycardia Home Medications triamcinolone acetonide 0.1 % topical cream 1 applic topical .COMPLEX 04/30/18 [History Last Taken Unknown] warfarin 2.5 mg tablet 2.5 mg PO .COMPLEX 11/18/18 [History Last Taken Unknown] paroxetine HCl 20 mg tablet (Paxil) 10 mg PO DAILY 05/11/19 [History Last Taken Unknown] adalimumab 40 mg/0.8 mL subcutaneous pen kit (Humira Pen) 40 mg subcut ONCE 03/07/21 [History Last Taken Unknown] oxycodone-acetaminophen 5 mg-325 mg tablet (Percocet) 1 tab PO Q8H PRN Pain 08/14/21 [History Last Taken Unknown] clobetasol 0.05 % topical cream 1 applic topical DAILY PRN PSORIASIS 01/15/22 [History Last Taken Unknown] flecainide 100 mg tablet 100 mg PO BID 07/14/22 [History Last Taken Unknown] amoxicillin 500 mg tablet 500 mg PO .COMPLEX PRN Dental procedure #4 tabs 07/23/22 [Rx Last Taken Unknown] simvastatin 40 mg tablet 40 mg PO QPM #90 tabs 08/04/22 [Rx Last Taken Unknown] atenolol 25 mg tablet 12.5 mg PO DAILY #45 tabs 09/01/22 [Rx Last Taken Unknown] albuterol sulfate 90 mcg/actuation aerosol inhaler 2 puff inhalation Q6H PRN shortness of breath or wheezing #6.7 grams 09/13/22 [Rx Last Taken Unknown] prednisone 20 mg tablet 20 mg PO DAILY 09/13/22 [History Last Taken Unknown] Allergy/AdvReac Type Severity Reaction Status Date / Time azithromycin Allergy Mild Unknown Verified 12/10/22 13:24 [From Zithromax Z-Fermin] bupropion Allergy Mild Unknown Verified 12/10/22 13:24 [From Wellbutrin SR] cefdinir [From Omnicef] Allergy Mild NEEDS Verified 12/10/22 13:24 FOLLOW-UP chamomile flower Allergy Unknown unknown Verified 12/10/22 13:24 Sulfa (Sulfonamide Allergy Unknown Verified 12/10/22 13:24 Antibiotics) kiwi AdvReac Intermediate unknown Verified 12/10/22 13:24 nickel AdvReac Unknown unknown Verified 12/10/22 13:24 quinine AdvReac Unknown unknown Verified 12/10/22 13:24 adhesive AdvReac unknown Verified 12/10/22 13:24 Family History Father Cancer Mother Cancer Surgical History H/O fracture of wrist H/O hysterectomy with unilateral oophorectomy H/O mitral valve replacement with mechanical valve (10/01/95) Hammertoe of left foot History of cataract surgery History of left heart catheterization (2018) History of radiofrequency ablation procedure for cardiac arrhythmia (10/10/02) Retinal tear Social History Smoking Status: Never smoker alcohol intake: current alcohol intake frequency: holidays/special occasions only substance use type: does not use ROS ROS ED Constitutional Constitutional ED: Denies chills or fever(s) Eyes Eyes: Denies change in vision or diplopia ENT ENT ED: Denies rhinorrhea or sore throat Cardiovascular Cardiovascular: Reports other Details: Lightheadedness/near syncope ; Denies chest pain or palpitations Respiratory/Chest Respiratory/Chest: Reports dyspnea; Denies cough Gastrointestinal Gastrointestinal: Reports constipation; Denies abdominal pain Genitourinary Genitourinary ED: Denies dysuria or hematuria Musculoskeletal Musculoskeletal: Denies arthralgias Integumentary Denies abscess or Abrasions Neurologic Neurologic: Denies headache(s) or paresthesias EXAM Physical Exam Const Vital Signs: 12/10/22 13:25 12/10/22 13:29 12/10/22 13:40 Temperature 96.6 F L Temperature Source Temporal Pulse Rate 60 Pulse Rate [Lying] Pulse Rate [Sitting (for 1 minute prior to obtaining)] Pulse Rate [Standing (for 1 minute prior to obtaining)] Respiratory Rate 18 Respiratory Effort Normal Non-Labored Blood Pressure 115/66 Blood Pressure [Lying] Blood Pressure [Sitting (for 1 minute prior to obtaining)] Blood Pressure [Standing (for 1 minute prior to obtaining)] Blood Pressure Mean 82 Blood Pressure Mean [Lying] Blood Pressure Mean [Sitting (for 1 minute prior to obtaining)] Blood Pressure Mean [Standing (for 1 minute prior to obtaining)] Pulse Ox 91 Oxygen Delivery Method Room Air Room Air Oxygen Flow Rate (L/min) 12/10/22 14:24 12/10/22 14:08 12/10/22 15:00 Temperature Temperature Source Pulse Rate 55 L 62 Pulse Rate [Lying] 54 L Pulse Rate [Sitting (for 1 minute prior to obtaining)] 55 L Pulse Rate [Standing (for 1 minute prior to obtaining)] 57 L Respiratory Rate 10 L 19 H Respiratory Effort Blood Pressure 135/59 H 161/62 H Blood Pressure [Lying] 147/55 H Blood Pressure [Sitting (for 1 minute prior to obtaining)] 150/63 H Blood Pressure [Standing (for 1 minute prior to obtaining)] 124/65 H Blood Pressure Mean 84 95 Blood Pressure Mean [Lying] 85 Blood Pressure Mean [Sitting (for 1 minute prior to obtaining)] 92 Blood Pressure Mean [Standing (for 1 minute prior to obtaining)] 84 Pulse Ox 95 96 Oxygen Delivery Method Room Air Nasal Cannula Oxygen Flow Rate (L/min) 2 12/10/22 14:13 Temperature Temperature Source Pulse Rate Pulse Rate [Lying] Pulse Rate [Sitting (for 1 minute prior to obtaining)] Pulse Rate [Standing (for 1 minute prior to obtaining)] Respiratory Rate Respiratory Effort Blood Pressure Blood Pressure [Lying] Blood Pressure [Sitting (for 1 minute prior to obtaining)] Blood Pressure [Standing (for 1 minute prior to obtaining)] Blood Pressure Mean Blood Pressure Mean [Lying] Blood Pressure Mean [Sitting (for 1 minute prior to obtaining)] Blood Pressure Mean [Standing (for 1 minute prior to obtaining)] Pulse Ox 86 Oxygen Delivery Method Room Air Oxygen Flow Rate (L/min) Positive well nourished General Appearance ED: NAD; Negative for pallor HEENT Reports moist mucous membranes Eyes PERRL and EOMs intact bilaterally Chest Wall inspection of chest normal Resp clear to auscultation bilaterally Auscultation: Negative for rales, rhonchi or wheezes Cardio regular rate and regular rhythm GI normal to inspection, nondistended, normoactive bowel sounds Back/Spine no CVA tenderness Neuro oriented x3, CN's II-XII intact bilaterally and no sensory deficits noted Sensorium / Orientation: alert Psych mental status grossly normal Skin no rashes or lesions noted and no wounds General Skin Exam: Negative for jaundice or pallor MDM MDM MDM Narrative Medical decision making narrative: Patient presenting with near syncope. Differential includes but is not limited to ACS, CHF, A-fib, a flutter, pneumonia, electrolyte abnormalities, dehydration, dysrhythmia. CBC to assess white blood cell count, hemoglobin, platelets, differential. BMP to assess renal function, electrolytes, glucose. INR will be assessed because the patient is on Coumadin. High-sensitivity troponin and EKG will be obtained to assess for arrhythmia and ischemia. Chest x-ray to rule out pneumonia or CHF. Orthostatic vital signs will be obtained. Nursing tells me the patient was asleep and dropped her sats to 86%. She does not typically wear oxygen. CBC shows no leukocytosis. Hemoglobin hematocrit are stable. Platelets normal. INR therapeutic at 3.0. Creatinine is slightly elevated at 1.23 and electrolytes are unremarkable. Patient was orthostatic so she was given a liter of normal saline. Chest x-ray on my interpretation shows a mild inflammatory changes bilaterally. The radiologist interprets this as bilateral pneumonia. High-sensitivity troponin is 18. EKG sinus bradycardia with first-degree AV block at a rate of 59 bpm without evidence of ischemia. Her squad EKG does show a sinus bradycardia at a rate of 42 bpm. . Given patient's syncope, orthostatics, hypoxia I believe she will need to be admitted to the hospital. Discussed with hospitalist for admission. Impression: 1. Hypoxia 2. Orthostatic hypotension 3. Syncope 4. Bradycardia Lab Data Attestation: I reviewed the patient's lab results. Labs: Laboratory Results - last 24 hr 12/10/22 12/10/22 12/10/22 13:20 13:20 13:20 WBC 6.5 RBC 4.64 Hgb 13.0 Hct 41.5 MCV 89.4 MCH 28.0 MCHC 31.3 L RDW Std Deviation 44.8 H RDW Coeff of Teodora 13.7 Plt Count 277 MPV 8.9 Immature Gran % (Auto) 0.500 Neut % (Auto) 50.7 Lymph % (Auto) 34.1 Simpson % (Auto) 9.6 Eos % (Auto) 4.3 Baso % (Auto) 0.8 Absolute Neuts (auto) 3.3 Absolute Lymphs (auto) 2.21 Nucleated RBC % 0 PT 31.3 H INR 3.0 Sodium 141 Potassium 4.0 Chloride 107 Carbon Dioxide 27.0 Anion Gap 7 BUN 16 Creatinine 1.23 H Estim Creat Clear Calc 35.18 Est GFR (MDRD) Af Amer 55 L Est GFR (MDRD) Non-Af 45 L BUN/Creatinine Ratio 13.0 Glucose 101 Calcium 9.4 Troponin I High Sens 18 Radiography Diagnostic Testing: Clinical Impression(s) from Imaging Studies Chest X-Ray 12/10/22 13:55 IMPRESSION: Bilateral pneumonia. Electronically Signed: Bharath Ragsdale MD at 14:29 EDT Reading Location ID and State: [facility] / [place] , Service support , Discharge Plan Triage Chief Complaint: Palpitations ED Provider: Jean Pierre Page Dx/Rx/DC Orders Prescriptions: No Action triamcinolone acetonide 0.1 % cream 1 applic TOPICAL .COMPLEX Label Comments: 1 applic TOPICAL as directed; Rx Instructions: 1 applic TOPICAL as directed; warfarin 2.5 mg tablet 2.5 mg PO .COMPLEX Label Comments: managed by Rx Instructions: managed by Dr.Stefania Humira Pen 40 mg/0.8 mL pen injector kit 40 mg subcut ONCE oxycodone-acetaminophen [Percocet] 5-325 mg tablet 1 tab PO Q8H PRN (Reason: Pain) Rx Instructions: couple times a month clobetasol 0.05 % cream 1 applic topical DAILY PRN (Reason: PSORIASIS) flecainide 100 mg tablet 100 mg PO BID prednisone 20 mg tablet 20 mg PO DAILY albuterol sulfate 90 mcg/actuation HFA aerosol inhaler 2 puff inhalation Q6H PRN (Reason: shortness of breath or wheezing) Qty: 6.7 0RF paroxetine HCl [Paxil] 20 mg tablet 10 mg PO DAILY amoxicillin 500 mg tablet 500 mg PO .COMPLEX PRN (Reason: Dental procedure) Qty: 4 3RF Rx Instructions: 500 mg PO take 4 pills one hour prior to dental procedure; PRN; simvastatin 40 mg tablet 40 mg PO QPM Qty: 90 3RF atenolol 25 mg tablet 12.5 mg PO DAILY Qty: 45 3RF Primary Care Provider: Tom Fox Referrals: Tom Fox DO [Primary Care Provider] -
[2022-12-10 14:13] LABS: BUN 16 mg/dL (7-18); Calcium,Total 9.4 mg/dL (8.5-10.1); Chloride 107 mmol/L (98-107); Creatinine, Serum 1.23 mg/dL (0.55-1.02); EST Glomerular Filtration Rate 45 mL/min (>60); Est Glom Filt Rate - Afr Amer 55 mL/min (>60); Estimated Creatinine Clearance 35.18 ml/min; Glucose 101 mg/dL (74-106); Sodium Level 141 mmol/L (136-145); Troponin-I HS (w/2H Reflex) 18 pg/mL (3.0-54.0)
[2022-12-10 14:14] LABS: Anion Gap 7 (5-15)
[2022-12-10] MEDS: Aspirin 81 MG TAB.CHEW 324 MG PO (14:30)
[2022-12-10] MEDS: 0.9% Normal Saline 1,000 ML 999 ML IV ×2 (15:15→18:50)
[2022-12-10 15:52] LABS: Reflex Troponin-HS? (from REC) Y
--- NOTE | 2022-12-10 15:58 | ECHOD_ITS ---
Reason For Study: syncope Procedure This was a 2D Doppler, Color Flow transthoracic echocardiogram. Exam performed portable in patient room. Left Ventricle Normal LV size. Mild concentric left ventricular hypertrophy. The left ventricular ejection fraction is 60 %. Stage 3 diastolic dysfunction. Right Ventricle Normal RV size. Mild global right ventricular systolic dysfunction. Atria The left atrium is severely enlarged. The right atrium is moderately enlarged. Mitral Valve Mechanical mitral valve prosthesis appears to function normally. Tricuspid Valve Mild tricuspid valve insufficiency. Normal pulmonary artery pressure. Aortic Valve Bioprosthetic aortic valve functioning normally. Pulmonic Valve The pulmonic valve is not well visualized. Great Vessels Normal sized aortic root. Pericardium/Pleural No pericardial effusion. MMode/2D Measurements & Calculations LVIDd: 4.8 cm IVSd: 1.4 cm LVOT diam: 1.6 cm LVIDs: 2.8 cm LVPWd: 0.76 cm LVOT area: 2.1 cm2 RVDd: 4.2 cm FS: 42.4 % Ao root diam: 2.5 cm LAV(MOD-bp): 83.8 ml LVAd ap4: 34.6 cm2 LA dimension: 6.1 cm LAV(MOD-bp) Indexed: 48.6 ml/m2 LVLd ap4: 8.5 cm LAV(MOD-sp2): 77.1 ml EDV(MOD-sp4): 120.5 ml LAV(MOD-sp4): 80.3 ml EDV(sp4-el): 119.7 ml LVAs ap4: 21.0 cm2 LVLs ap4: 7.9 cm ESV(MOD-sp4): 48.1 ml ESV(sp4-el): 47.3 ml EF(MOD-sp4): 60.1 % EF(sp4-el): 60.5 % LVAd ap2: 32.5 cm2 SV(MOD-sp4): 72.5 ml SV(MOD-sp2): 63.8 ml LVLd ap2: 8.0 cm EDV(MOD-sp2): 109.2 ml EDV(sp2-el): 112.1 ml LVAs ap2: 18.2 cm2 LVLs ap2: 6.4 cm ESV(MOD-sp2): 45.4 ml ESV(sp2-el): 44.1 ml EF(MOD-sp2): 58.4 % SV(sp4-el): 72.3 ml LA A4 area: 24.6 cm2 RA A4 area: 21.0 cm2 TAPSE: 1.6 cm Time Measurements MV dec time: 0.29 sec Doppler Measurements & Calculations MV E max favio: 128.2 cm/sec Lat Peak E' Favio: 7.8 cm/sec Med Peak E' Favio: 6.0 cm/sec MV A max favio: 58.7 cm/sec E/E' lat: 16.5 E/E' med: 21.3 MV E/A: 2.2 MV V2 max: 170.1 cm/sec MV P1/2t max favio: 170.1 cm/sec Ao V2 max: 129.4 cm/sec MV max P.6 mmHg MV P1/2t: 85.8 msec Ao max P.7 mmHg MV V2 mean: 66.5 cm/sec MV dec slope: 580.2 cm/sec2 Ao V2 mean: 84.4 cm/sec MV mean P.4 mmHg Ao mean P.3 mmHg MV V2 VTI: 43.1 cm MVA(P1/2t): 2.6 cm2 Ao V2 VTI: 34.6 cm MVA(VTI): 0.75 cm2 AV (velocity ratio): 0.44 DEBORAH(I,D): 0.94 cm2 DEBORAH(V,D): 1.1 cm2 LV V1 max: 67.4 cm/sec MR max favio: 466.0 cm/sec SV(LVOT): 32.5 ml LV V1 max P.8 mmHg MR max P.9 mmHg LV V1 mean P.1 mmHg LV V1 mean: 48.7 cm/sec LV V1 VTI: 15.3 cm PA V2 max: 83.7 cm/sec PI end-d favio: 109.4 cm/sec TR max favio: 244.2 cm/sec TR max P.8 mmHg ECHO/Echo Complete Interpretation Summary Mild concentric left ventricular hypertrophy. Stage 3 diastolic dysfunction. The left ventricular ejection fraction is 60 %. Mild global right ventricular systolic dysfunction. The left atrium is severely enlarged. The right atrium is moderately enlarged. Mechanical mitral valve prosthesis appears to function normally. Bioprosthetic aortic valve functioning normally. Ordering Physician: Damian Lux Referring Physician: Tom Fox Performed By: Miguelito Tompkins and Student
--- NOTE | 2022-12-10 16:03 | CT_ITS ---
STUDY: CT Chest W/O Contrast Injection 12/10/2022 5:18 PM REASON FOR EXAM: Female, 72 years old. shortness of breath -- abnromal CXR and chest exam Individualized dose optimization techniques were used for this CT. TECHNIQUE: Transaxial imaging was performed withoutIV contrast material. COMPARISON: None. FINDINGS: There are degenerative changes of the shoulders. There is no pneumothorax. There is no demonstrated pleural abnormality. Interlobular thickening. There are multiple median sternotomy wires. There are calcifications of the coronary arteries. TAVR. Enlarged heart. There are multiple lymph nodes within the mediastinum, which are suggestive of adenopathy. Normal hilar regions. Normal pulmonary arteries. There is atherosclerotic calcification of the aortic arch with tortuosity and elongation of the aortic arch and descending thoracic aorta. There are multi-level degenerative changes of the thoracic spine. Impression deformity of the lower thoracic spine There are no acute findings of the upper abdomen. CT/Chest without Contrast IMPRESSION: There are calcifications of the coronary arteries. Cardiomegaly with mild interlobular thickening in the lower lung brock suggesting mild pulmonary edema. There are multiple lymph nodes within the mediastinum, which are suggestive of adenopathy. Electronically Signed: Bharath Ragsdale MD at 17:21 EDT ,
[2022-12-10 16:28] LABS: Troponin-I HS 18 pg/mL (3.0-54.0)
--- NOTE | 2022-12-10 18:00 | PCM.HP.STD ---
HPI - General General Date of Admission: 12/10/22 Date of Service: 12/10/22 Chief Complaint: Near syncope HPI Narrative LOGAN CROSS, is a 72 F who presents sudden onset of lightheadedness, diaphoresis, extreme fatigue and weakness, confusion and difficulty with mentation while she was out shopping. Called EMS who per ED physician report was found to be in junctional rhythm with a heart rate of 42. She was given IV atropine with improvement in heart rate to the 60s. Currently she is in sinus bradycardia. Was also noted to be hypoxic at 86% in the emergency department while on room air. She was started on 2 L/min supplemental oxygen with improvement to 96%. Patient currently feels better other than being generally weak. Chest x-ray reported as bilateral basilar infiltrates suggestive of possible pneumonia. She denies any chest pain or palpitations she did have some shortness of breath during the above episode. This has since resolved. She does not have any fever or chills or cough. Denies any orthopnea or lower extremity swelling. [facility] Medical History Aortic stenosis with bicuspid valve Asthma Bleeding per rectum Constipation Depression GERD (gastroesophageal reflux disease) History of transcatheter aortic valve replacement (TAVR) (02/24/18) Hyperlipidemia Left bundle-branch block Left low back pain Left wrist sprain correction current use of anticoagulant Lumbar strain Nonrheumatic mitral valve insufficiency Nonrheumatic mitral valve prolapse Paroxysmal atrial fibrillation Peripheral vertigo, unspecified Psoriasis Refusal of blood transfusions as patient is [employer]ism Typical atrial flutter Ventricular tachycardia Home Medications triamcinolone acetonide 0.1 % topical cream 1 applic topical .COMPLEX 04/30/18 [History Last Taken Unknown] warfarin 2.5 mg tablet 2.5 mg PO .COMPLEX 11/18/18 [History Last Taken Unknown] paroxetine HCl 20 mg tablet (Paxil) 10 mg PO DAILY 05/11/19 [History Last Taken Unknown] adalimumab 40 mg/0.8 mL subcutaneous pen kit (Humira Pen) 40 mg subcut ONCE 03/07/21 [History Last Taken Unknown] oxycodone-acetaminophen 5 mg-325 mg tablet (Percocet) 1 tab PO Q8H PRN Pain 08/14/21 [History Last Taken Unknown] clobetasol 0.05 % topical cream 1 applic topical DAILY PRN PSORIASIS 01/15/22 [History Last Taken Unknown] flecainide 100 mg tablet 100 mg PO BID 07/14/22 [History Last Taken Unknown] amoxicillin 500 mg tablet 500 mg PO .COMPLEX PRN Dental procedure #4 tabs 07/23/22 [Rx Last Taken Unknown] simvastatin 40 mg tablet 40 mg PO QPM #90 tabs 08/04/22 [Rx Last Taken Unknown] atenolol 25 mg tablet 12.5 mg PO DAILY #45 tabs 09/01/22 [Rx Last Taken Unknown] albuterol sulfate 90 mcg/actuation aerosol inhaler 2 puff inhalation Q6H PRN shortness of breath or wheezing #6.7 grams 09/13/22 [Rx Last Taken Unknown] prednisone 20 mg tablet 20 mg PO DAILY 09/13/22 [History Last Taken Unknown] Allergy/AdvReac Type Severity Reaction Status Date / Time azithromycin Allergy Mild Unknown Verified 12/10/22 13:24 [From Zithromax Z-Fermin] bupropion Allergy Mild Unknown Verified 12/10/22 13:24 [From Wellbutrin SR] cefdinir [From Omnicef] Allergy Mild NEEDS Verified 12/10/22 13:24 FOLLOW-UP chamomile flower Allergy Unknown unknown Verified 12/10/22 13:24 Sulfa (Sulfonamide Allergy Unknown Verified 12/10/22 13:24 Antibiotics) kiwi AdvReac Intermediate unknown Verified 12/10/22 13:24 nickel AdvReac Unknown unknown Verified 12/10/22 13:24 quinine AdvReac Unknown unknown Verified 12/10/22 13:24 adhesive AdvReac unknown Verified 12/10/22 13:24 Family History Father Cancer Mother Cancer Surgical History H/O fracture of wrist H/O hysterectomy with unilateral oophorectomy H/O mitral valve replacement with mechanical valve (10/01/95) Hammertoe of left foot History of cataract surgery History of left heart catheterization (2017) History of radiofrequency ablation procedure for cardiac arrhythmia (10/10/02) Retinal tear Social History Smoking Status: Former smoker alcohol intake: current alcohol intake frequency: holidays/special occasions only substance use type: does not use ROS ROS Narrative Denies any chest pain or palpitation. Denies any nausea vomiting. No lower extremity swelling. All other systems reviewed and essentially negative as above in the body of the history. Vital Signs Vital Signs Vital Signs: 12/10/22 13:25 12/10/22 13:29 12/10/22 13:40 Temperature 35.9 C L Temperature Source Temporal Pulse Rate 60 Pulse Rate [Lying] Pulse Rate [Sitting (for 1 minute prior to obtaining)] Pulse Rate [Standing (for 1 minute prior to obtaining)] Respiratory Rate 18 Respiratory Effort Normal Non-Labored Respiratory Depth Respiratory Pattern Blood Pressure 115/66 Blood Pressure [Lying] Blood Pressure [Sitting (for 1 minute prior to obtaining)] Blood Pressure [Standing (for 1 minute prior to obtaining)] Blood Pressure Mean 82 Blood Pressure Mean [Lying] Blood Pressure Mean [Sitting (for 1 minute prior to obtaining)] Blood Pressure Mean [Standing (for 1 minute prior to obtaining)] Pulse Ox 91 Oxygen Delivery Method Room Air Room Air Oxygen Flow Rate (L/min) 12/10/22 14:24 12/10/22 14:08 12/10/22 15:00 Temperature Temperature Source Pulse Rate 55 L 62 Pulse Rate [Lying] 54 L Pulse Rate [Sitting (for 1 minute prior to obtaining)] 55 L Pulse Rate [Standing (for 1 minute prior to obtaining)] 57 L Respiratory Rate 10 L 19 H Respiratory Effort Respiratory Depth Respiratory Pattern Blood Pressure 135/59 H 161/62 H Blood Pressure [Lying] 147/55 H Blood Pressure [Sitting (for 1 minute prior to obtaining)] 150/63 H Blood Pressure [Standing (for 1 minute prior to obtaining)] 124/65 H Blood Pressure Mean 84 95 Blood Pressure Mean [Lying] 85 Blood Pressure Mean [Sitting (for 1 minute prior to obtaining)] 92 Blood Pressure Mean [Standing (for 1 minute prior to obtaining)] 84 Pulse Ox 95 96 Oxygen Delivery Method Room Air Nasal Cannula Oxygen Flow Rate (L/min) 2 12/10/22 14:13 12/10/22 15:37 12/10/22 17:04 Temperature 36.2 C L Temperature Source Temporal Pulse Rate 59 L Pulse Rate [Lying] Pulse Rate [Sitting (for 1 minute prior to obtaining)] Pulse Rate [Standing (for 1 minute prior to obtaining)] Respiratory Rate 17 Respiratory Effort Normal Non-Labored Respiratory Depth Normal Respiratory Pattern Normal Blood Pressure 161/62 H Blood Pressure [Lying] Blood Pressure [Sitting (for 1 minute prior to obtaining)] Blood Pressure [Standing (for 1 minute prior to obtaining)] Blood Pressure Mean 95 Blood Pressure Mean [Lying] Blood Pressure Mean [Sitting (for 1 minute prior to obtaining)] Blood Pressure Mean [Standing (for 1 minute prior to obtaining)] Pulse Ox 86 95 Oxygen Delivery Method Room Air Nasal Cannula Nasal Cannula Oxygen Flow Rate (L/min) 4 Weight Weight: 67.6 kg Body Mass Index (BMI) 25.5 Physical Exam Narrative General exam. Elderly man, not in any obvious distress. Not particularly ill looking. HEENT. Oral mucosa moist no pallor or jaundice Neck. Neck is supple. Jugular venous distention 2+. Positive hepatojugular reflux. Lungs. Clear to auscultation but for the right lower lobe posteriorly that had fine crackles. Heart. First and second heart sounds heard. Right ventricular S4. Mechanical S1 Abdomen. Soft and full nontender no organomegaly and no palpable masses Extremities. No pedal edema [employer]. Conscious alert and oriented x3. Cranial surgery grossly intact. Power 5 out of 5 in all extremities. Results Lab / Micro Data Result Diagrams: 12/10/22 13:20 12/10/22 13:20 Labs: Laboratory Results - last 24 hr 12/10/22 13:20: PT 31.3 H, INR 3.0 12/10/22 13:20: WBC 6.5, RBC 4.64, Hgb 13.0, Hct 41.5, MCV 89.4, MCH 28.0, MCHC 31.3 L, RDW Std Deviation 44.8 H, RDW Coeff of Teodora 13.7, Plt Count 277, MPV 8.9, Immature Gran % (Auto) 0.500, Neut % (Auto) 50.7, Lymph % (Auto) 34.1, Newton % (Auto) 9.6, Eos % (Auto) 4.3, Baso % (Auto) 0.8, Absolute Neuts (auto) 3.3, Absolute Lymphs (auto) 2.21, Nucleated RBC % 0 12/10/22 13:20: Sodium 141, Potassium 4.0, Chloride 107, Carbon Dioxide 27.0, Anion Gap 7, BUN 16, Creatinine 1.23 H, Estim Creat Clear Calc 35.18, Est GFR (MDRD) Af Amer 55 L, Est GFR (MDRD) Non-Af 45 L, BUN/Creatinine Ratio 13.0, Glucose 101, Calcium 9.4, Troponin I High Sens 18 12/10/22 15:58: Troponin I High Sens 18 Radiology Impression Chest X-Ray 12/10/22 13:55 IMPRESSION: Bilateral pneumonia. Electronically Signed: Bharath Ragsdale MD at 14:29 EDT , Chest CT 12/10/22 16:03 IMPRESSION: There are calcifications of the coronary arteries. Cardiomegaly with mild interlobular thickening in the lower lung brock suggesting mild pulmonary edema. There are multiple lymph nodes within the mediastinum, which are suggestive of adenopathy. Electronically Signed: Bharath Ragsdale MD at 17:21 EDT , Assessment & Plan Assessment/Plan (1) Near syncope: PLAN: Plan Assessment and plan 1. Near syncope. Cardiogenic (alana-arrhythmogenic) versus orthostatic versus vasovagal. Junctional rhythm reported out in the field, however here patient was in sinus bradycardia. Reviewed EKG personally and appears more like an ectopic atrial rhythm. We will keep patient on telemetry, cycle troponins check echocardiogram. Consult cardiology. Hold atenolol. May benefit from Holter/event monitor at discharge. Bolus with 500 cc of normal saline and recheck orthostatics. 2. Valvular heart disease. Status post mechanical mitral valve replacement and with known aortic stenosis from bicuspid valve. Patient is compliant with her Coumadin. INR therapeutic. We will continue. 3. Paroxysmal atrial fibrillation. Controlled. Charges/Coding Visit Charges Inpatient E&M: 37539 Init Hosp L3
--- NOTE | 2022-12-10 18:23 | PCM.PN.BLA ---
Progress Note Later notified by nurse that patient had had 2 bloody bowel movements and now a third. Now in retrospect, most likely this may have been the cause of her near syncope. Difficult situation as patient has a mechanical mitral valve and is on Coumadin for anticoagulation. INR is currently 3.[address] Mendoza for gastroenterology who recommended CT angiogram of the abdomen and pelvis stat. We will consult cardiology. Attempted to reach via telephone to obtain initial guidance and recommendation but unsuccessful. We will go ahead and hold Coumadin and shoot for an INR closer to the lower end of target i.e. between 2 and 2.5 and then possibly bridge with heparin. Also a challenge is the fact that the patient is a Oriental orthodox and would not be able to receive blood products. Given 1 L of normal saline bolus stat. Continue to closely monitor. Continue telemetry.
[2022-12-10 19:03] LABS: Troponin-I HS 15 pg/mL (3.0-54.0)
--- NOTE | 2022-12-10 19:14 | CT_ITS ---
STUDY: CTA Abdomen and Pelvis WO/W Contrast Injection REASON FOR EXAM: Female, 72 years old. Acute lower GI bleeding -- Lower GI bleeding TECHNIQUE: Axial CT angiography multi-detector data acquisition was obtained following intravenous administration of IV 100mL Isovue-370 contrast. Axial images and MIP images were reconstructed from the axial data set. Post-processing of the angiographic images was performed, with multiplanar reformation and 3D reconstruction. MIPS images were obtained. Individualized dose optimization techniques were used for this CT. COMPARISON: 09.17.17. FINDINGS: Diffuse interlobular septal thickening. Coronary arterial calcifications. Heart is enlarged. There is decreased attenuation of the liver consistent with steatosis. Normal gallbladder and extrahepatic biliary system. Normal spleen. Normal pancreas. Normal bilateral adrenal glands. No acute findings of the right kidney. No acute findings of the left kidney. Focal wall thickening of the antrum of stomach. This can suggest a gastritis. Normal small intestine. Diffuse wall thickening and inflammation of the descending and sigmoid colon. The appendix is visualized and appears normal. Normal inferior vena cava. Normal retroperitoneum. Normal urinary bladder. There is absence of the uterus consistent with a prior hysterectomy. In the left adnexa, there is a cystic area measuring 49 x 41 mm. This has enlarged. Trace pelvic ascites. There is a small umbilical hernia containing fat. There are diffuse degenerative changes of the visualized lumbar spine. There is an unremarkable-appearing IVC. Abdominal aorta: There are calcifications of the abdominal aorta. This is consistent for atherosclerotic disease. There is no abdominal aortic aneurysm. Celiac and superior mesenteric arteries: There is mild diffuse narrowing. Inferior mesenteric artery: There is mild diffuse narrowing. Right renal artery(arteries): There is mild diffuse narrowing. Left renal artery(arteries): There is mild diffuse narrowing. Right common iliac artery: There is mild diffuse narrowing. Right external iliac artery: There is mild diffuse narrowing. Right internal iliac artery: There is mild diffuse narrowing. Left common iliac artery: There is mild diffuse narrowing. Left external iliac artery: There is mild diffuse narrowing. Left internal iliac artery: There is mild diffuse narrowing. CT/CTA Abd/Pelvis W/WO Contrast IMPRESSION: (NOT LISTED IN ORDER OF SIGNIFICANCE) Colitis of the descending and sigmoid colon. Fatty liver. Pulmonary edema. Gastritis. In the left adnexa, there is a cystic area measuring 49 x 41 mm. This has enlarged and may be a vaginal cyst or ovarian cyst. Trace pelvic ascites. Other findings as above. Electronically Signed: Bharath Ragsdale MD at 21:03 EDT ,
[2022-12-10 20:17] LABS: Procalcitonin < 0.04 ng/mL (0.00-0.09)
[2022-12-10] MEDS: Flecainide 100 MG Tablet PO (21:49)
[2022-12-10] MEDS: Atorvastatin Calcium 20 MG Tablet PO (21:49)
[2022-12-10] MEDS: Albuterol 2.5 MG/3 ML VIAL.NEB. INHALATION (21:55)
--- NOTE | 2022-12-10 22:07 | CPS ---
PRN TX requested for patient due to increase of SOB, Patient sounded very wet/rhonchi. RN notified and lasix was requested by HOSPITAL WARD CLERK
[2022-12-10] MEDS: Furosemide 40 MG/4 ML Vial IV (22:27)
[2022-12-10 22:53] LABS: Hematocrit 39.6 % (37-47); Hemoglobin 12.4 g/dL (12.0-15.0)
--- NOTE | 2022-12-10 23:00 | EX.PCM.CON.G ---
HPI Consult Data Date of Consult: 12/10/22 HPI Narrative Reason for Consultation: GI bleed HPI Narrative: LOGAN CROSS, is a 72 F who presents with history of aortic stenosis, A-fib, a flutter, TAVR with mitral valve replacement presenting with lightheadedness and near syncope.? Patient states she was in the store and started to feel like she was lightheaded and tried to make it out to her car and her symptoms got much worse.? At that point she called 911.? She states it started to look like everything was going white.? EMS arrived and she states they transported her to the hospital.? She states she feels currently feels better.? She denies any chest pain but states she was short of breath a little bit.? She has been otherwise healthy recently.? No fevers or chills.? No coughing or shortness of breath.? No black or bloody stools. I was called because the patient started developing lower GI bleeding. She says she has a history of chronic constipation and when she was going into the store she got the feeling to go to the bathroom. However when she tried to go to the bathroom in the store nothing came out. She Then stood up and got very lightheaded and almost passed out. She is still having some lower GI bleeding. I requested that she get a CT angio of the abdomen pelvis and it showed some thickening in the stomach and in the descending and sigmoid colon. Her hemoglobin was 13 and is down to 12.4. 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 Lumbar strain Nonrheumatic mitral valve insufficiency Nonrheumatic mitral valve prolapse Paroxysmal atrial fibrillation Peripheral vertigo, unspecified Psoriasis Refusal of blood transfusions as patient is Buddhist Typical atrial flutter Ventricular tachycardia Home Medications triamcinolone acetonide 0.1 % topical cream 1 applic topical .COMPLEX 04/30/18 [History Last Taken Unknown] warfarin 2.5 mg tablet 2.5 mg PO .COMPLEX 11/18/18 [History Last Taken Unknown] paroxetine HCl 20 mg tablet (Paxil) 10 mg PO DAILY 05/11/19 [History Last Taken Unknown] adalimumab 40 mg/0.8 mL subcutaneous pen kit (Humira Pen) 40 mg subcut ONCE 03/07/21 [History Last Taken Unknown] oxycodone-acetaminophen 5 mg-325 mg tablet (Percocet) 1 tab PO Q8H PRN Pain 08/14/21 [History Last Taken Unknown] clobetasol 0.05 % topical cream 1 applic topical DAILY PRN PSORIASIS 01/15/22 [History Last Taken Unknown] flecainide 100 mg tablet 100 mg PO BID 07/14/22 [History Last Taken Unknown] amoxicillin 500 mg tablet 500 mg PO .COMPLEX PRN Dental procedure #4 tabs 07/23/22 [Rx Last Taken Unknown] simvastatin 40 mg tablet 40 mg PO QPM #90 tabs 08/04/22 [Rx Last Taken Unknown] atenolol 25 mg tablet 12.5 mg PO DAILY #45 tabs 09/01/22 [Rx Last Taken Unknown] albuterol sulfate 90 mcg/actuation aerosol inhaler 2 puff inhalation Q6H PRN shortness of breath or wheezing #6.7 grams 09/13/22 [Rx Last Taken Unknown] prednisone 20 mg tablet 20 mg PO DAILY 09/13/22 [History Last Taken Unknown] Allergy/AdvReac Type Severity Reaction Status Date / Time azithromycin Allergy Mild Unknown Verified 12/10/22 13:24 [From Zithromax Z-Fermin] bupropion Allergy Mild Unknown Verified 12/10/22 13:24 [From Wellbutrin SR] cefdinir [From Omnicef] Allergy Mild NEEDS Verified 12/10/22 13:24 FOLLOW-UP chamomile flower Allergy Unknown unknown Verified 12/10/22 13:24 Sulfa (Sulfonamide Allergy Unknown Verified 12/10/22 13:24 Antibiotics) kiwi AdvReac Intermediate unknown Verified 12/10/22 13:24 nickel AdvReac Unknown unknown Verified 12/10/22 13:24 quinine AdvReac Unknown unknown Verified 12/10/22 13:24 adhesive AdvReac unknown Verified 12/10/22 13:24 Family History Father Cancer Mother Cancer Surgical History H/O fracture of wrist H/O hysterectomy with unilateral oophorectomy H/O mitral valve replacement with mechanical valve (10/01/95) Hammertoe of left foot History of cataract surgery History of left heart catheterization (2018) History of radiofrequency ablation procedure for cardiac arrhythmia (10/10/02) Retinal tear Social History Smoking Status: Former smoker alcohol intake: current alcohol intake frequency: holidays/special occasions only substance use type: does not use ROS ROS Narrative Denies any chest pain or palpitation. Denies any nausea vomiting. No lower extremity swelling. All other systems reviewed and essentially negative as above in the body of the history. Physical Exam Narrative General exam. Elderly man, not in any obvious distress. Not particularly ill looking. HEENT. Oral mucosa moist no pallor or jaundice Neck. Neck is supple. Lungs. Clear to auscultation but for the right lower lobe posteriorly that had fine crackles. Heart. First and second heart sounds heard. Abdomen. Soft and full nontender no organomegaly and no palpable masses Extremities. No pedal edema [employer]OP [employer]ARD [employer]. Conscious alert and oriented x3. Cranial surgery grossly intact. Power 5 out of 5 in all extremities. Lab / Micro Data Result Diagrams: 12/11/22 06:28 12/11/22 06:28 Labs: Laboratory Results - last 24 hr 12/10/22 13:20: PT 31.3 H, INR 3.0 12/10/22 13:20: WBC 6.5, RBC 4.64, Hgb 13.0, Hct 41.5, MCV 89.4, MCH 28.0, MCHC 31.3 L, RDW Std Deviation 44.8 H, RDW Coeff of Teodora 13.7, Plt Count 277, MPV 8.9, Immature Gran % (Auto) 0.500, Neut % (Auto) 50.7, Lymph % (Auto) 34.1, Morton % (Auto) 9.6, Eos % (Auto) 4.3, Baso % (Auto) 0.8, Absolute Neuts (auto) 3.3, Absolute Lymphs (auto) 2.21, Nucleated RBC % 0 12/10/22 13:20: Sodium 141, Potassium 4.0, Chloride 107, Carbon Dioxide 27.0, Anion Gap 7, BUN 16, Creatinine 1.23 H, Estim Creat Clear Calc 35.18, Est GFR (MDRD) Af Amer 55 L, Est GFR (MDRD) Non-Af 45 L, BUN/Creatinine Ratio 13.0, Glucose 101, Calcium 9.4, Troponin I High Sens 18 12/10/22 15:58: Troponin I High Sens 18 12/10/22 18:08: Procalcitonin < 0.04 12/10/22 18:08: Troponin I High Sens 15 12/10/22 21:50: Hgb 12.4, Hct 39.6 12/11/22 06:28: WBC 11.7 H, RBC 4.43, Hgb 12.5, Hct 39.3, MCV 88.7, MCH 28.2, MCHC 31.8 L, RDW Std Deviation 45.1 H, RDW Coeff of Teodora 13.8, Plt Count 210, MPV 8.6, Immature Gran % (Auto) 0.400, Neut % (Auto) 70.3 H, Lymph % (Auto) 17.6 L, Morton % (Auto) 10.2 H, Eos % (Auto) 1.2, Baso % (Auto) 0.3, Absolute Neuts (auto) 8.2 H, Absolute Lymphs (auto) 2.07, Nucleated RBC % 0 12/11/22 06:28: Sodium 141, Potassium 3.7, Chloride 107, Carbon Dioxide 27.0, Anion Gap 7, BUN 15, Creatinine 1.10 H, Estim Creat Clear Calc 39.33, Est GFR (MDRD) Af Amer 63, Est GFR (MDRD) Non-Af 52 L, BUN/Creatinine Ratio 13.6, Glucose 102, Calcium 8.8, Total Bilirubin 0.90, AST 20, ALT 19, Alkaline Phosphatase 73, Total Protein 7.1, Albumin 3.3, Globulin 3.8, Albumin/Globulin Ratio 0.9, TSH 0.81 12/11/22 06:28: PT 27.7 H, INR 2.6 Radiology Impression Chest X-Ray 12/10/22 13:55 IMPRESSION: Bilateral pneumonia. Electronically Signed: Bharath Ragsdale MD at 14:29 EDT , Chest CT 12/10/22 16:03 IMPRESSION: There are calcifications of the coronary arteries. Cardiomegaly with mild interlobular thickening in the lower lung brock suggesting mild pulmonary edema. There are multiple lymph nodes within the mediastinum, which are suggestive of adenopathy. Electronically Signed: Bharath Ragsdale MD at 17:21 EDT , Abdomen/Pelvis CTA 12/10/22 19:14 IMPRESSION: (NOT LISTED IN ORDER OF SIGNIFICANCE) Colitis of the descending and sigmoid colon. Fatty liver. Pulmonary edema. Gastritis. In the left adnexa, there is a cystic area measuring 49 x 41 mm. This has enlarged and may be a vaginal cyst or ovarian cyst. Trace pelvic ascites. Other findings as above. Electronically Signed: Bharath Ragsdale MD at 21:03 EDT , Assessment & Plan Assessment/Plan (1) Near syncope: (2) GI bleed: (3) Constipation: PLAN: Plan 72 F who presents sudden onset of lightheadedness, diaphoresis, extreme fatigue and weakness, confusion and difficulty with mentation while she was out shopping.? She has a history of atrial fibrillation, mitral valve regurgitation status post TAVR procedure with metal prosthetic valve replacement several years ago. She was found to have bradycardia and a mild hypoxia. She developed lower GI bleeding. Differential diagnosis from the presyncope or syncope along with hypoxia would be ischemic colitis, diverticular bleed, angiodysplasia, upper GI bleed rapid transit. She will undergo an EGD and flexible sigmoidoscopy. I will give her tapwater enemas. Her INR is 2.6 currently. Recommend Protonix 40 mg IV every 12 hours. Further recommendation to follow. Charges/Coding Visit Charges Inpatient E&M: 47935 Init Hosp L3
[2022-12-11] VITALS (13 sets, daily range): BP systolic 95–139; BP diastolic 46–66; PULSE 57–65; RESP 16–18; TEMP 36.1–36.7; O2SAT 84–98; BMI 25.5
--- NOTE | 2022-12-11 01:45 | CON_ITS ---
HPI Consult Data Date of Consult: 12/11/22 HPI Narrative Reason for Consultation: GI bleed HPI Narrative: LOGAN CROSS, is a 72 F who presents with history of aortic stenosis, A-fib, a flutter, TAVR with mitral valve replacement presenting with lightheadedness and near syncope.? Patient states she was in the store and started to feel like she was lightheaded and tried to make it out to her car and her symptoms got much worse.? At that point she called 911.? She states it started to look like everything was going white.? EMS arrived and she states they transported her to the hospital.? She states she feels currently feels better.? She denies any chest pain but states she was short of breath a little bit.? She has been otherwise healthy recently.? No fevers or chills.? No coughing or shortness of breath.? No black or bloody stools. I was called because the patient started developing lower GI bleeding. She says she has a history of chronic constipation and when she was going into the store she got the feeling to go to the bathroom. However when she tried to go to the bathroom in the store nothing came out. She Then stood up and got very lightheaded and almost passed out. She is still having some lower GI bleeding. I requested that she get a CT angio of the abdomen pelvis and it showed some thickening in the stomach and in the descending and sigmoid colon. Her hemoglobin was 13 and is down to 12.4. 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 Lumbar strain Nonrheumatic mitral valve insufficiency Nonrheumatic mitral valve prolapse Paroxysmal atrial fibrillation Peripheral vertigo, unspecified Psoriasis Refusal of blood transfusions as patient is [facility] Typical atrial flutter Ventricular tachycardia Home Medications triamcinolone acetonide 0.1 % topical cream 1 applic topical .COMPLEX 04/30/18 [History Last Taken Unknown] warfarin 2.5 mg tablet 2.5 mg PO .COMPLEX 11/18/18 [History Last Taken Unknown] paroxetine HCl 20 mg tablet (Paxil) 10 mg PO DAILY 05/11/19 [History Last Taken Unknown] adalimumab 40 mg/0.8 mL subcutaneous pen kit (Humira Pen) 40 mg subcut ONCE 03/07/21 [History Last Taken Unknown] oxycodone-acetaminophen 5 mg-325 mg tablet (Percocet) 1 tab PO Q8H PRN Pain 08/14/21 [History Last Taken Unknown] clobetasol 0.05 % topical cream 1 applic topical DAILY PRN PSORIASIS 01/15/22 [History Last Taken Unknown] flecainide 100 mg tablet 100 mg PO BID 07/14/22 [History Last Taken Unknown] amoxicillin 500 mg tablet 500 mg PO .COMPLEX PRN Dental procedure #4 tabs 07/23/22 [Rx Last Taken Unknown] simvastatin 40 mg tablet 40 mg PO QPM #90 tabs 08/04/22 [Rx Last Taken Unknown] atenolol 25 mg tablet 12.5 mg PO DAILY #45 tabs 09/01/22 [Rx Last Taken Unknown] albuterol sulfate 90 mcg/actuation aerosol inhaler 2 puff inhalation Q6H PRN shortness of breath or wheezing #6.7 grams 09/13/22 [Rx Last Taken Unknown] prednisone 20 mg tablet 20 mg PO DAILY 09/13/22 [History Last Taken Unknown] Allergy/AdvReac Type Severity Reaction Status Date / Time azithromycin Allergy Mild Unknown Verified 12/10/22 13:24 [From Zithromax Z-Fermin] bupropion Allergy Mild Unknown Verified 12/10/22 13:24 [From Wellbutrin SR] cefdinir [From Omnicef] Allergy Mild NEEDS Verified 12/10/22 13:24 FOLLOW-UP chamomile flower Allergy Unknown unknown Verified 12/10/22 13:24 Sulfa (Sulfonamide Allergy Unknown Verified 12/10/22 13:24 Antibiotics) kiwi AdvReac Intermediate unknown Verified 12/10/22 13:24 nickel AdvReac Unknown unknown Verified 12/10/22 13:24 quinine AdvReac Unknown unknown Verified 12/10/22 13:24 adhesive AdvReac unknown Verified 12/10/22 13:24 Family History Father Cancer Mother Cancer Surgical History H/O fracture of wrist H/O hysterectomy with unilateral oophorectomy H/O mitral valve replacement with mechanical valve (10/01/95) Hammertoe of left foot History of cataract surgery History of left heart catheterization (2018) History of radiofrequency ablation procedure for cardiac arrhythmia (10/10/02) Retinal tear Social History Smoking Status: Former smoker alcohol intake: current alcohol intake frequency: holidays/special occasions only substance use type: does not use ROS ROS Narrative Denies any chest pain or palpitation. Denies any nausea vomiting. No lower extremity swelling. All other systems reviewed and essentially negative as above in the body of the history. Physical Exam Narrative General exam. Elderly man, not in any obvious distress. Not particularly ill looking. HEENT. Oral mucosa moist no pallor or jaundice Neck. Neck is supple. Lungs. Clear to auscultation but for the right lower lobe posteriorly that had fine crackles. Heart. First and second heart sounds heard. Abdomen. 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 Conscious alert and oriented x3. Cranial surgery grossly intact. Power 5 out of 5 in all extremities. Lab / Micro Data Result Diagrams: 12/11/22 06:28 12/11/22 06:28 Labs: Laboratory Results - last 24 hr 12/10/22 13:20: PT 31.3 H, INR 3.0 12/10/22 13:20: WBC 6.5, RBC 4.64, Hgb 13.0, Hct 41.5, MCV 89.4, MCH 28.0, MCHC 31.3 L, RDW Std Deviation 44.8 H, RDW Coeff of Teodora 13.7, Plt Count 277, MPV 8.9, Immature Gran % (Auto) 0.500, Neut % (Auto) 50.7, Lymph % (Auto) 34.1, Ulster % (Auto) 9.6, Eos % (Auto) 4.3, Baso % (Auto) 0.8, Absolute Neuts (auto) 3.3, Absolute Lymphs (auto) 2.21, Nucleated RBC % 0 12/10/22 13:20: Sodium 141, Potassium 4.0, Chloride 107, Carbon Dioxide 27.0, Anion Gap 7, BUN 16, Creatinine 1.23 H, Estim Creat Clear Calc 35.18, Est GFR (MDRD) Af Amer 55 L, Est GFR (MDRD) Non-Af 45 L, BUN/Creatinine Ratio 13.0, Glucose 101, Calcium 9.4, Troponin I High Sens 18 12/10/22 15:58: Troponin I High Sens 18 12/10/22 18:08: Procalcitonin < 0.04 12/10/22 18:08: Troponin I High Sens 15 12/10/22 21:50: Hgb 12.4, Hct 39.6 12/11/22 06:28: WBC 11.7 H, RBC 4.43, Hgb 12.5, Hct 39.3, MCV 88.7, MCH 28.2, MCHC 31.8 L, RDW Std Deviation 45.1 H, RDW Coeff of Teodora 13.8, Plt Count 210, MPV 8.6, Immature Gran % (Auto) 0.400, Neut % (Auto) 70.3 H, Lymph % (Auto) 17.6 L, Ulster % (Auto) 10.2 H, Eos % (Auto) 1.2, Baso % (Auto) 0.3, Absolute Neuts (auto) 8.2 H, Absolute Lymphs (auto) 2.07, Nucleated RBC % 0 12/11/22 06:28: Sodium 141, Potassium 3.7, Chloride 107, Carbon Dioxide 27.0, Anion Gap 7, BUN 15, Creatinine 1.10 H, Estim Creat Clear Calc 39.33, Est GFR (MDRD) Af Amer 63, Est GFR (MDRD) Non-Af 52 L, BUN/Creatinine Ratio 13.6, Glucose 102, Calcium 8.8, Total Bilirubin 0.90, AST 20, ALT 19, Alkaline Phosphatase 73, Total Protein 7.1, Albumin 3.3, Globulin 3.8, Albumin/Globulin Ratio 0.9, TSH 0.81 12/11/22 06:28: PT 27.7 H, INR 2.6 Radiology Impression Chest X-Ray 12/10/22 13:55 IMPRESSION: Bilateral pneumonia. Electronically Signed: Bharath Ragsdale MD at 14:29 EDT , Chest CT 12/10/22 16:03 IMPRESSION: There are calcifications of the coronary arteries. Cardiomegaly with mild interlobular thickening in the lower lung brock suggesting mild pulmonary edema. There are multiple lymph nodes within the mediastinum, which are suggestive of adenopathy. Electronically Signed: Bharath Ragsdale MD at 17:21 EDT , Abdomen/Pelvis CTA 12/10/22 19:14 IMPRESSION: (NOT LISTED IN ORDER OF SIGNIFICANCE) Colitis of the descending and sigmoid colon. Fatty liver. Pulmonary edema. Gastritis. In the left adnexa, there is a cystic area measuring 49 x 41 mm. This has enlarged and may be a vaginal cyst or ovarian cyst. Trace pelvic ascites. Other findings as above. Electronically Signed: Bharath Ragsdale MD at 21:03 EDT , Assessment & Plan Assessment/Plan (1) Near syncope: (2) GI bleed: (3) Constipation: PLAN: Plan 72 F who presents sudden onset of lightheadedness, diaphoresis, extreme fatigue and weakness, confusion and difficulty with mentation while she was out shopping.? She has a history of atrial fibrillation, mitral valve regurgitation status post TAVR procedure with metal prosthetic valve replacement several years ago. She was found to have bradycardia and a mild hypoxia. She developed lower GI bleeding. Differential diagnosis from the presyncope or syncope along with hypoxia would be ischemic colitis, diverticular bleed, angiodysplasia, upper GI bleed rapid transit. She will undergo an EGD and flexible sigmoidoscopy. I will give her tapwater enemas. Her INR is 2.6 currently. Recommend Protonix 40 mg IV every 12 hours. Further recommendation to follow. Charges/Coding Visit Charges Inpatient E&M: 24513 Init Hosp L3
[2022-12-11 06:37] LABS: Absolute Lymphocyte Count 2.07 X10^3/uL (0.83-4.51); Absolute Neutrophil Count 8.2 X10^3/uL (2.0-7.7); Basophil# 0.03 X10^3/uL; Basophil% 0.3 % (0-1); Eosinophil# 0.14 X10^3/uL; Eosinophils% 1.2 % (0-5); Hematocrit 39.3 % (37-47); Hemoglobin 12.5 g/dL (12.0-15.0); Lymphocyte # 2.07 X10^3/ul (0.83-4.51); Lymphocyte % 17.6 % (19-41); Mean Corp Hgb Conc 31.8 g/dL (32-36); Mean Corpuscular Hgb 28.2 pg (27.0-32.0); Mean Corpuscular Volume 88.7 fL (81-99); Mean Platelet Vol. 8.6 fl (6.2-12.0); Monocyte% 10.2 % (0-10); NRBC Flagged by Analyzer 0 % (0-5); Neutrophil # 8.24 X10^3/uL (2.7-7.7); Neutrophil % 70.3 % (47-70); Platelet Count 210 K/mm3 (150-450); RBC Distribution Width CV 13.8 % (11.6-14.6); RBC Distribution Width SD 45.1 fl (35.1-43.9); Red Blood Count 4.43 M/mm3 (4.2-5.4); White Blood Count 11.7 K/mm3 (4.4-11.0)
[2022-12-11 06:48] LABS: International Normalized Ratio 2.6; Prothrombin Time (Protime)PT. 27.7 SECONDS (11.7-14.9)
[2022-12-11 07:16] LABS: ALB/GLOB Ratio 0.9 RATIO (0.9-2.4); AST(SGOT) 20 U/L (15-37); Alanine Aminotransfer ALT/SGPT 19 U/L (13-56); Albumin, Serum 3.3 g/dL (3.2-5.0); Alkaline Phosphatase 73 U/L (45-117); Anion Gap 7 (5-15); BUN 15 mg/dL (7-18); BUN/Creat Ratio 13.6 RATIO (10-20); Calcium,Total 8.8 mg/dL (8.5-10.1); Chloride 107 mmol/L (98-107); EST Glomerular Filtration Rate 52 mL/min (>60); Est Glom Filt Rate - Afr Amer 63 mL/min (>60); Estimated Creatinine Clearance 39.33 ml/min; Globulin 3.8 g/dL (2.2-4.2); Glucose 102 mg/dL (74-106); Potassium 3.7 mmol/L (3.5-5.1); Protein, Total 7.1 g/dL (6.4-8.2); Sodium Level 141 mmol/L (136-145); Thyroid Stim Hormone (TSH) 0.81 uIU/mL (0.358-3.74)
--- NOTE | 2022-12-11 08:09 | PCM.PN.HOSP ---
Reason for Visit Reason for Visit: Diagnoses Shortness of breath (12/10/22) Other fatigue (12/10/22) Syncope and collapse (12/10/22) Subjective Subjective This a.m. with some abdominal cramping Objective Data Objective Data Vital Signs: Vital Signs Temp Pulse Resp BP Pulse Ox O2 Del Method O2 Flow Rate 97.3 F L 60 16 118/57 L 95 Nasal Cannula 4 12/11/22 06:00 12/11/22 06:00 12/11/22 06:00 12/11/22 06:00 12/11/22 06:00 12/11/22 07:54 12/11/22 07:54 Oxygen Flow Rate (L/min) 4 Oxygen Delivery Method Nasal Cannula Weight: 67.6 kg Body Mass Index (BMI) 25.5 Intake & Output: Intake and Output for Last 24 Hours 12/09/22 12/10/22 12/11/22 23:59 23:59 23:59 Intake Total 1240 / 1240 1050 / 1050 Output Total 600 / 600 Balance 1240 / 1040 450 / 450 Lab / Micro Data Result Diagrams: 12/11/22 15:10 12/11/22 06:28 Labs: Laboratory Results - last 24 hr 12/10/22 13:20: PT 31.3 H, INR 3.0 12/10/22 13:20: WBC 6.5, RBC 4.64, Hgb 13.0, Hct 41.5, MCV 89.4, MCH 28.0, MCHC 31.3 L, RDW Std Deviation 44.8 H, RDW Coeff of Teodora 13.7, Plt Count 277, MPV 8.9, Immature Gran % (Auto) 0.500, Neut % (Auto) 50.7, Lymph % (Auto) 34.1, Stone % (Auto) 9.6, Eos % (Auto) 4.3, Baso % (Auto) 0.8, Absolute Neuts (auto) 3.3, Absolute Lymphs (auto) 2.21, Nucleated RBC % 0 12/10/22 13:20: Sodium 141, Potassium 4.0, Chloride 107, Carbon Dioxide 27.0, Anion Gap 7, BUN 16, Creatinine 1.23 H, Estim Creat Clear Calc 35.18, Est GFR (MDRD) Af Amer 55 L, Est GFR (MDRD) Non-Af 45 L, BUN/Creatinine Ratio 13.0, Glucose 101, Calcium 9.4, Troponin I High Sens 18 12/10/22 15:58: Troponin I High Sens 18 12/10/22 18:08: Procalcitonin < 0.04 12/10/22 18:08: Troponin I High Sens 15 12/10/22 21:50: Hgb 12.4, Hct 39.6 12/11/22 06:28: WBC 11.7 H, RBC 4.43, Hgb 12.5, Hct 39.3, MCV 88.7, MCH 28.2, MCHC 31.8 L, RDW Std Deviation 45.1 H, RDW Coeff of Teodora 13.8, Plt Count 210, MPV 8.6, Immature Gran % (Auto) 0.400, Neut % (Auto) 70.3 H, Lymph % (Auto) 17.6 L, Stone % (Auto) 10.2 H, Eos % (Auto) 1.2, Baso % (Auto) 0.3, Absolute Neuts (auto) 8.2 H, Absolute Lymphs (auto) 2.07, Nucleated RBC % 0 12/11/22 06:28: Sodium 141, Potassium 3.7, Chloride 107, Carbon Dioxide 27.0, Anion Gap 7, BUN 15, Creatinine 1.10 H, Estim Creat Clear Calc 39.33, Est GFR (MDRD) Af Amer 63, Est GFR (MDRD) Non-Af 52 L, BUN/Creatinine Ratio 13.6, Glucose 102, Calcium 8.8, Total Bilirubin 0.90, AST 20, ALT 19, Alkaline Phosphatase 73, Total Protein 7.1, Albumin 3.3, Globulin 3.8, Albumin/Globulin Ratio 0.9, TSH 0.81 12/11/22 06:28: PT 27.7 H, INR 2.6 Radiography Diagnostic Testing: Radiology Impression Chest X-Ray 12/10/22 13:55 IMPRESSION: Bilateral pneumonia. Electronically Signed: Bharath Ragsdale MD at 14:29 EDT , Chest CT 12/10/22 16:03 IMPRESSION: There are calcifications of the coronary arteries. Cardiomegaly with mild interlobular thickening in the lower lung brock suggesting mild pulmonary edema. There are multiple lymph nodes within the mediastinum, which are suggestive of adenopathy. Electronically Signed: Bharath Ragsdale MD at 17:21 EDT , Abdomen/Pelvis CTA 12/10/22 19:14 IMPRESSION: (NOT LISTED IN ORDER OF SIGNIFICANCE) Colitis of the descending and sigmoid colon. Fatty liver. Pulmonary edema. Gastritis. In the left adnexa, there is a cystic area measuring 49 x 41 mm. This has enlarged and may be a vaginal cyst or ovarian cyst. Trace pelvic ascites. Other findings as above. Electronically Signed: Bharath Ragsdale MD at 21:03 EDT , Physical Exam Narrative General: Alert, oriented, no apparent distress HEENT: Atraumatic, normocephalic Eyes: extraocular movements grossly intact Neck: Supple Respiratory: normal respiratory effort Cardiovascular: no edema appreciated GI: nondistended Extremities: Moving all extremities Neuro: No overt focal neurological deficits Psych: Cooperative Assessment & Plan Assessment/Plan (1) Near syncope: PLAN: Plan 72 F who presents sudden onset of lightheadedness, diaphoresis, extreme fatigue and weakness, confusion and difficulty with mentation while she was out shopping.? Called EMS who per ED physician report was found to be in junctional rhythm with a heart rate of 42.? She was given IV atropine with improvement in heart rate to the 60s. Hypoxic in ED w/ O2 sat 86%. 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 -CT abdomen with focal wall thickening of antrum of stomach may be suggesting gastritis and diffuse wall thickening and inflammation of the descending and sigmoid colon -Patient started on Zosyn overnight -Patient for EGD and sigmoidoscopy today #Hypoxia secondary to acute exacerbation of heart failure with preserved ejection fraction -Likely secondary to pulmonary edema which was seen on CT patient does have diastolic dysfunction -Received one-time Lasix 40 IV and this is improved -Echo ordered which showed stage III diastolic dysfunction with left atrium enlargement, EF 60% -Has improved from respiratory standpoint, monitor I's and O's, redose Lasix as needed #Near syncope -Likely multifactorial given junctional bradycardia in field but likely contributed to by GIB and hypoxia -Monitor on telemetry, address underlying etiology -Troponin negative -Cardiology evaluated and suspect vasovagal secondary to constipation and straining to move bowels, 24-hour Holter monitor recommended at discharge, agree with beta-mike discontinued #Hx mechanical mitral valve -Patient has mechanical mitral valve replacement with known aortic stenosis from bicuspid valve -Compliant with Coumadin -INR was therapeutic -Daily INR -Cardiology consulted for assistance and guidance with mechanical valve and anticoagulation -Patient for EGD, as hemoglobin stable, pending EGD and colonoscopy findings may be able to resume anticoagulation, if unable to or if any further active bleeding will likely need to transfer to tertiary center #Paroxysmal atrial fibrillation -On Coumadin -Presently controlled -On flecainide #Cystic area in left adnexa -Seen on CTA measuring 49 x 41 mm which is enlarged from previous, unclear clinical significance #[id number] -Appears to be at baseline, continue to monitor #DVT ppx: On Coumadin Lainey Ingram MD Time spent in the patient's overall evaluation,decision-making process, review of diagnostic data, adjustment of management, discussion with other providers, nursing nursing and ancillary staff involved in patient's care documentation, 38 minutes Charges/Coding Visit Charges Inpatient E&M: 75965 [facility] Hosp L3
[2022-12-11] MEDS: Flecainide 100 MG Tablet PO ×2 (11:10→22:24)
[2022-12-11] MEDS: predniSONE 20 MG Tablet PO (11:10)
--- NOTE | 2022-12-11 11:20 | CASEMGMT ---
RN SILVESTRE Face to Face with patient for initial transition planning/care coordination assessment. RN CM introduced self and role at [facility]. Patient lying in bed, alert and oriented. Patient willing to participate in assessment and is able to answer all questions appropriately. Care providers, pharmacy, and demographics verified. Patient wishes to discharge home, denies need for home health at this time. Patient states she has no further needs or concerns at this time. CM to follow for discharge planning needs that may arise. 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 Transportation: self, DME/HHC: Patient denies DME for herself. No previous HHC or SNF. Will monitor for home oxygen Disposition Plan: Patient to discharge home with family support and follow-up plans in place. Ana MELENDEZ, RN, CM
--- NOTE | 2022-12-11 11:54 | PCM.CONS.C ---
Assessment & Plan Assessment/Plan (1) Near syncope: PLAN: Likely vasovagal secondary to constipation and difficulty moving bowels. Monitor. Recommend 24-hour Holter upon discharge home. Agree with stopping beta-mike. (2) GI bleed: PLAN: Plan as per GI. Presently hemoglobin globin stable. Patient has a mechanical prosthetic mitral valve which carries a high thromboembolic risk. If her hemoglobin stays stable, I would recommend continuing her anticoagulation. However if her hemoglobin starts dropping or if she has profound bleeding, then her anticoagulation may need to be reversed either with vitamin K or more emergently, with fresh frozen plasma. (3) History of transcatheter aortic valve replacement (TAVR): PLAN: Bioprosthetic aortic valve functioning normally. (4) H/O mitral valve replacement with mechanical valve: PLAN: See #2 above. (5) Paroxysmal atrial fibrillation: PLAN: Presently normal sinus rhythm. On flecainide. HPI Consult Data Date of Consult: 12/11/22 HPI Narrative Reason for Consultation: Presyncope HPI Narrative: The patient has past medical history significant for valvular heart disease status post mitral valve replacement with a metallic prosthetic valve and also status post TAVR. She also has history of paroxysmal atrial fibrillation. According to her, she was trying to move her bowels yesterday however she felt constipated. She felt lightheaded and dizzy and felt like she was going to pass out. EMS was called. According to the report, she was in junctional rhythm at the time. Upon arrival to the hospital, she was in sinus bradycardia. Here in the hospital, patient has had 2 bloody bowel movements. She is being evaluated by gastroenterology. Her hemoglobin has been stable. She is scheduled for sigmoidoscopy and upper GI endoscopy for today. Patient denies any chest pains. No shortness of breath. No orthopnea. No PND. No ankle edema. [facility] Medical History Aortic stenosis with bicuspid valve Asthma Bleeding per rectum Constipation Depression GERD (gastroesophageal reflux disease) History of transcatheter aortic valve replacement (TAVR) (02/24/18) Hyperlipidemia Left bundle-branch block Left low back pain Left wrist sprain intermediate current use of anticoagulant Lumbar strain Nonrheumatic mitral valve insufficiency Nonrheumatic mitral valve prolapse Paroxysmal atrial fibrillation Peripheral vertigo, unspecified Psoriasis Refusal of blood transfusions as patient is Taoist Typical atrial flutter Ventricular tachycardia Home Medications triamcinolone acetonide 0.1 % topical cream 1 applic topical .COMPLEX 04/30/18 [History Last Taken Unknown] warfarin 2.5 mg tablet 2.5 mg PO .COMPLEX 11/18/18 [History Last Taken Unknown] paroxetine HCl 20 mg tablet (Paxil) 10 mg PO DAILY 05/11/19 [History Last Taken Unknown] adalimumab 40 mg/0.8 mL subcutaneous pen kit (Humira Pen) 40 mg subcut ONCE 03/07/21 [History Last Taken Unknown] oxycodone-acetaminophen 5 mg-325 mg tablet (Percocet) 1 tab PO Q8H PRN Pain 08/14/21 [History Last Taken Unknown] clobetasol 0.05 % topical cream 1 applic topical DAILY PRN PSORIASIS 01/15/22 [History Last Taken Unknown] flecainide 100 mg tablet 100 mg PO BID 07/14/22 [History Last Taken Unknown] amoxicillin 500 mg tablet 500 mg PO .COMPLEX PRN Dental procedure #4 tabs 07/23/22 [Rx Last Taken Unknown] simvastatin 40 mg tablet 40 mg PO QPM #90 tabs 08/04/22 [Rx Last Taken Unknown] atenolol 25 mg tablet 12.5 mg PO DAILY #45 tabs 09/01/22 [Rx Last Taken Unknown] albuterol sulfate 90 mcg/actuation aerosol inhaler 2 puff inhalation Q6H PRN shortness of breath or wheezing #6.7 grams 09/13/22 [Rx Last Taken Unknown] prednisone 20 mg tablet 20 mg PO DAILY 09/13/22 [History Last Taken Unknown] Allergy/AdvReac Type Severity Reaction Status Date / Time azithromycin Allergy Mild Unknown Verified 12/10/22 13:24 [From Zithromax Z-Fermin] bupropion Allergy Mild Unknown Verified 12/10/22 13:24 [From Wellbutrin SR] cefdinir [From Omnicef] Allergy Mild NEEDS Verified 12/10/22 13:24 FOLLOW-UP chamomile flower Allergy Unknown unknown Verified 12/10/22 13:24 Sulfa (Sulfonamide Allergy Unknown Verified 12/10/22 13:24 Antibiotics) kiwi AdvReac Intermediate unknown Verified 12/10/22 13:24 nickel AdvReac Unknown unknown Verified 12/10/22 13:24 quinine AdvReac Unknown unknown Verified 12/10/22 13:24 adhesive AdvReac unknown Verified 12/10/22 13:24 Family History Father Cancer Mother Cancer Surgical History H/O fracture of wrist H/O hysterectomy with unilateral oophorectomy H/O mitral valve replacement with mechanical valve (10/01/95) Hammertoe of left foot History of cataract surgery History of left heart catheterization (2018) History of radiofrequency ablation procedure for cardiac arrhythmia (10/10/02) Retinal tear Social History Smoking Status: Former smoker alcohol intake: current alcohol intake frequency: holidays/special occasions only substance use type: does not use Physical Exam Narrative Comfortable. No apparent distress. 2/6 systolic murmur at base. Wilkin metallic first heart sound. Chest clear to auscultation bilaterally. Abdomen soft. Alert oriented x3. No ankle edema. Risk Stratification Risk Stratification Applicable: No Objective Data Vital Signs: Vital Signs Temp Pulse Resp BP Pulse Ox O2 Del Method O2 Flow Rate 97.3 F L 60 16 118/57 L 92 Nasal Cannula 4 12/11/22 06:00 12/11/22 06:00 12/11/22 06:00 12/11/22 06:00 12/11/22 06:50 12/11/22 07:54 12/11/22 07:54 Oxygen Flow Rate (L/min) 4 Oxygen Delivery Method Nasal Cannula Weight: 149 lb 0.52 oz Body Mass Index (BMI) 25.5 Intake & Output: Intake and Output for Last 24 Hours 12/09/22 12/10/22 12/11/22 23:59 23:59 23:59 Intake Total 1240 / 1240 1135 / 1135 Output Total 600 / 600 Balance 1240 / 1040 535 / 535 Lab / Micro Data Attestation: I reviewed the patient's lab results. Result Diagrams: 12/11/22 06:28 12/11/22 06:28 Labs: Laboratory Results - last 24 hr 12/10/22 13:20: PT 31.3 H, INR 3.0 06/21/23 13:20: WBC 6.5, RBC 4.64, Hgb 13.0, Hct 41.5, MCV 89.4, MCH 28.0, MCHC 31.3 L, RDW Std Deviation 44.8 H, RDW Coeff of Teodora 13.7, Plt Count 277, MPV 8.9, Immature Gran % (Auto) 0.500, Neut % (Auto) 50.7, Lymph % (Auto) 34.1, [place] % (Auto) 9.6, Eos % (Auto) 4.3, Baso % (Auto) 0.8, Absolute Neuts (auto) 3.3, Absolute Lymphs (auto) 2.21, Nucleated RBC % 0 12/10/22 13:20: Sodium 141, Potassium 4.0, Chloride 107, Carbon Dioxide 27.0, Anion Gap 7, BUN 16, Creatinine 1.23 H, Estim Creat Clear Calc 35.18, Est GFR (MDRD) Af Amer 55 L, Est GFR (MDRD) Non-Af 45 L, BUN/Creatinine Ratio 13.0, Glucose 101, Calcium 9.4, Troponin I High Sens 18 12/10/22 15:58: Troponin I High Sens 18 12/10/22 18:08: Procalcitonin < 0.04 12/10/22 18:08: Troponin I High Sens 15 12/10/22 21:50: Hgb 12.4, Hct 39.6 12/11/22 06:28: WBC 11.7 H, RBC 4.43, Hgb 12.5, Hct 39.3, MCV 88.7, MCH 28.2, MCHC 31.8 L, RDW Std Deviation 45.1 H, RDW Coeff of Teodora 13.8, Plt Count 210, MPV 8.6, Immature Gran % (Auto) 0.400, Neut % (Auto) 70.3 H, Lymph % (Auto) 17.6 L, [place] % (Auto) 10.2 H, Eos % (Auto) 1.2, Baso % (Auto) 0.3, Absolute Neuts (auto) 8.2 H, Absolute Lymphs (auto) 2.07, Nucleated RBC % 0 12/11/22 06:28: Sodium 141, Potassium 3.7, Chloride 107, Carbon Dioxide 27.0, Anion Gap 7, BUN 15, Creatinine 1.10 H, Estim Creat Clear Calc 39.33, Est GFR (MDRD) Af Amer 63, Est GFR (MDRD) Non-Af 52 L, BUN/Creatinine Ratio 13.6, Glucose 102, Calcium 8.8, Total Bilirubin 0.90, AST 20, ALT 19, Alkaline Phosphatase 73, Total Protein 7.1, Albumin 3.3, Globulin 3.8, Albumin/Globulin Ratio 0.9, TSH 0.81 12/11/22 06:28: PT 27.7 H, INR 2.6 Rhythm Strip Rhythm Strip: Sinus Rhythm Cardiology Labs/Tests 12/10/22 13:20: PT 31.3 H, INR 3.0 12/10/22 13:20: WBC 6.5, RBC 4.64, Hgb 13.0, Hct 41.5, MCV 89.4, MCH 28.0, MCHC 31.3 L, Plt Count 277, MPV 8.9, Immature Gran % (Auto) 0.500, Neut % (Auto) 50.7, Lymph % (Auto) 34.1, [place] % (Auto) 9.6, Eos % (Auto) 4.3, Baso % (Auto) 0.8, Absolute Neuts (auto) 3.3, Nucleated RBC % 0 12/10/22 13:20: Sodium 141, Potassium 4.0, Chloride 107, Carbon Dioxide 27.0, Anion Gap 7, BUN 16, Creatinine 1.23 H, Est GFR (MDRD) Af Amer 55 L, Est GFR (MDRD) Non-Af 45 L, BUN/Creatinine Ratio 13.0, Glucose 101, Calcium 9.4 12/10/22 21:50: Hgb 12.4, Hct 39.6 12/11/22 06:28: WBC 11.7 H, RBC 4.43, Hgb 12.5, Hct 39.3, MCV 88.7, MCH 28.2, MCHC 31.8 L, Plt Count 210, MPV 8.6, Immature Gran % (Auto) 0.400, Neut % (Auto) 70.3 H, Lymph % (Auto) 17.6 L, [place] % (Auto) 10.2 H, Eos % (Auto) 1.2, Baso % (Auto) 0.3, Absolute Neuts (auto) 8.2 H, Nucleated RBC % 0 12/11/22 06:28: Sodium 141, Potassium 3.7, Chloride 107, Carbon Dioxide 27.0, Anion Gap 7, BUN 15, Creatinine 1.10 H, Est GFR (MDRD) Af Amer 63, Est GFR (MDRD) Non-Af 52 L, BUN/Creatinine Ratio 13.6, Glucose 102, Calcium 8.8, Total Bilirubin 0.90 12/11/22 06:28: PT 27.7 H, INR 2.6 Rhythm: EKG: Sinus bradycardia. ECHO: Normal LV systolic function. Normally functioning metallic prosthetic mitral valve. Normally functioning bioprosthetic aortic valve. Stress Test: Cardiac Cath: PCI: CT Surgery: Holter monitor: EPS: PPM: CXR: Chest CT Scan: Radiography Diagnostic Testing: Radiology Impression Chest X-Ray 12/10/22 13:55 IMPRESSION: Bilateral pneumonia. Electronically Signed: Bharath Ragsdale MD at 14:29 EDT Reading Location ID and State: [facility] / [place] , Service support , Echocardiogram 12/10/22 15:58 Interpretation Summary Mild concentric left ventricular hypertrophy. Stage 3 diastolic dysfunction. The left ventricular ejection fraction is 60 %. Mild global right ventricular systolic dysfunction. The left atrium is severely enlarged. The right atrium is moderately enlarged. Mechanical mitral valve prosthesis appears to function normally. Bioprosthetic aortic valve functioning normally. Ordering Physician: Damian Lux Referring Physician: Tom Fox Performed By: Miguelito Tompkins and Student Chest CT 12/10/22 16:03 IMPRESSION: There are calcifications of the coronary arteries. Cardiomegaly with mild interlobular thickening in the lower lung brock suggesting mild pulmonary edema. There are multiple lymph nodes within the mediastinum, which are suggestive of adenopathy. Electronically Signed: Bharath Ragsdale MD at 17:21 EDT , Abdomen/Pelvis CTA 12/10/22 19:14 IMPRESSION: (NOT LISTED IN ORDER OF SIGNIFICANCE) Colitis of the descending and sigmoid colon. Fatty liver. Pulmonary edema. Gastritis. In the left adnexa, there is a cystic area measuring 49 x 41 mm. This has enlarged and may be a vaginal cyst or ovarian cyst. Trace pelvic ascites. Other findings as above. Electronically Signed: Bharath Ragsdale MD at 21:03 EDT ,
--- NOTE | 2022-12-11 12:06 | CASEMGMT ---
Tertiary facilities in-network with patient's insurance: [facility], , [facility], [facility].
--- NOTE | 2022-12-11 15:00 | EGD_PTH ---
PATIENT: LOGAN CROSS LOC: [facility] U#:[id number] AGE/SX: 72/F ROOM: [facility] RE12/11/[address]: Dr. Mary Marx MD : 1950 BED: 1 DIS: 12/13/2022 SPEC #: [id number] RECD: 12/11/22 17:20 STATUS: REGINE REAmina #: [id number] TURNER: 12/11/22 15:[address]: Alfredo Mendoza DEPT: SURGICAL PATHOLOGY RECD BY: Mark Kumar ENTERED: 12/12/22 07:46 SP TYPE: EGD BIOPSY OT DR: MD Dr. Mary Leonardo MD Dr. Ifijen Oleghe, MD Dr. Mark Stutzman, DO Dr. Paige Pierce, MD Tissues: A - Duodenum, NOS B - COLON BIOPSY Procedures: Surgery Specimen Level IV HEADER OPERATION: EGD with biopsies (MAC), colonoscopy to splenic flexure PRE-OP DIAGNOSIS: GI bleed TISSUE SUBMITTED: A ? Duodenum biopsy, B ? Splenic flexure biopsy MICROSCOPIC DIAGNOSIS A. Duodenum, biopsy: Suggestive of Giulia?s gland hyperplasia. Focal gastric metaplasia. B. Colon at splenic flexure, biopsy: Consistent with ischemic colitis with mucosal ulceration and fibrinopurulent material. AM:walter 12/15/2022 MICROSCOPIC DESCRIPTION Slides are reviewed. GROSS DESCRIPTION A - Received in fixative is one container labeled with the patient's name and designated duodenum biopsy. The specimen consists of two irregular fragments of light flores soft tissue that in aggregate measure 0.7 x 0.5 x 0.1 cm. The specimen is totally submitted in one cassette. B - Received in fixative is one container labeled with the patient's name and designated splenic flexure biopsy. The specimen consists of multiple irregular fragments of light flores soft tissue that in aggregate measure 0.5 x 0.5 x 0.1 cm. The specimen is totally submitted in one cassette. / AM:walter 12/12/2022 TC:2 CPT: 73759 x2
[2022-12-11 15:36] LABS: Hematocrit 38.8 % (37-47); Hemoglobin 12.4 g/dL (12.0-15.0)
[2022-12-11] MEDS: Atorvastatin Calcium 20 MG Tablet PO (22:24)
[2022-12-11 22:46] LABS: Hematocrit 36.6 % (37-47); Hemoglobin 11.6 g/dL (12.0-15.0)
[2022-12-12 02:37] VITALS: BP 130/70; PULSE 55; RESP 12; TEMP 36.4; O2SAT 98
[2022-12-12 06:32] LABS: Absolute Lymphocyte Count 1.85 X10^3/uL (0.83-4.51); Absolute Neutrophil Count 6.7 X10^3/uL (2.0-7.7); Basophil# 0.04 X10^3/uL; Basophil% 0.4 % (0-1); Eosinophil# 0.17 X10^3/uL; Eosinophils% 1.8 % (0-5); Hematocrit 39.2 % (37-47); Hemoglobin 12.3 g/dL (12.0-15.0); Lymphocyte # 1.85 X10^3/ul (0.83-4.51); Lymphocyte % 19.4 % (19-41); Mean Corp Hgb Conc 31.4 g/dL (32-36); Mean Corpuscular Volume 89.3 fL (81-99); Monocyte# 0.72 X10^3/uL; Monocyte% 7.5 % (0-10); NRBC Flagged by Analyzer 0 % (0-5); Neutrophil # 6.71 X10^3/uL (2.7-7.7); Neutrophil % 70.4 % (47-70); Platelet Count 232 K/mm3 (150-450); RBC Distribution Width CV 13.6 % (11.6-14.6); RBC Distribution Width SD 44.3 fl (35.1-43.9); Red Blood Count 4.39 M/mm3 (4.2-5.4); White Blood Count 9.5 K/mm3 (4.4-11.0)
[2022-12-12 06:59] LABS: Anion Gap 4 (5-15); BUN 15 mg/dL (7-18); BUN/Creat Ratio 14.9 RATIO (10-20); Calcium,Total 9.1 mg/dL (8.5-10.1); Chloride 108 mmol/L (98-107); Creatinine, Serum 1.01 mg/dL (0.55-1.02); EST Glomerular Filtration Rate 57 mL/min (>60); Est Glom Filt Rate - Afr Amer 69 mL/min (>60); Estimated Creatinine Clearance 42.84 ml/min; Glucose 96 mg/dL (74-106); Potassium 3.7 mmol/L (3.5-5.1); Sodium Level 138 mmol/L (136-145)
[2022-12-12 07:34] VITALS: O2SAT 92
[2022-12-12 08:21] VITALS: BP 130/57; PULSE 47; RESP 18; TEMP 36.7; O2SAT 100
[2022-12-12] MEDS: predniSONE 20 MG Tablet PO (08:33)
--- NOTE | 2022-12-12 09:02 | PCM.PN.HOSP ---
Reason for Visit Reason for Visit: Diagnoses Paroxysmal atrial fibrillation (12/11/22) Constipation, unspecified (12/11/22) Gastrointestinal hemorrhage, unspecified (12/11/22) Shortness of breath (12/11/22) Other fatigue (12/11/22) Syncope and collapse (12/11/22) Presence of prosthetic heart valve (12/11/22) Subjective Subjective Patient overnight with no acute events however this morning patient did have onset of heart rate decreased into the 40s and did feel mildly dyspneic and not at her baseline however this was only transient and she quickly returned to a heart rate in the 60s with resolution of the symptoms. Cardiology has already evaluated the patient and recommended 24-hour Holter monitor upon her discharge. Discussed patient's case currently with gastroenterology and they did note that her endoscopies demonstrated evidence of ischemic colitis with recommendation of initiation of MiraLAX twice daily and outpatient follow-up with their service upon discharge. Discussed patient INR 2.6 and they agreed with ongoing anticoagulant therapy cautiously. From gastroenterology standpoint they are amenable to discharge when she is clinically appropriate. Patient denies any abdominal discomfort, cramping, bright red blood or dark black stools. Patient denies fevers, chills, nausea, emesis, abdominal pain, chest pain. Objective Data Objective Data Vital Signs: Vital Signs Temp Pulse Resp BP Pulse Ox O2 Del Method O2 Flow Rate 98.0 F 47 L 18 130/57 H 100 Nasal Cannula 3 12/12/22 08:21 12/12/22 08:21 12/12/22 08:21 12/12/22 08:21 12/12/22 08:21 12/12/22 08:21 12/12/22 08:21 Oxygen Flow Rate (L/min) 3 Oxygen Delivery Method Nasal Cannula Weight: 149 lb 0.52 oz Body Mass Index (BMI) 25.5 Intake & Output: Intake and Output for Last 24 Hours 12/10/22 12/11/22 12/12/22 23:59 23:59 23:59 Intake Total 1240 / 1240 1655 / 1655 250 / 250 Output Total 600 / 600 Balance 1240 / 1040 1055 / 1055 250 / 250 Lab / Micro Data Result Diagrams: 12/12/22 14:16 12/12/22 06:11 Labs: Laboratory Results - last 24 hr 12/11/22 15:10: Hgb 12.4, Hct 38.8 12/11/22 22:26: Hgb 11.6 L, Hct 36.6 L 12/12/22 06:11: WBC 9.5, RBC 4.39, Hgb 12.3, Hct 39.2, MCV 89.3, MCH 28.0, MCHC 31.4 L, RDW Std Deviation 44.3 H, RDW Coeff of Teodora 13.6, Plt Count 232, MPV 9.0, Immature Gran % (Auto) 0.500, Neut % (Auto) 70.4 H, Lymph % (Auto) 19.4, [place] % (Auto) 7.5, Eos % (Auto) 1.8, Baso % (Auto) 0.4, Absolute Neuts (auto) 6.7, Absolute Lymphs (auto) 1.85, Nucleated RBC % 0 12/12/22 06:11: Sodium 138, Potassium 3.7, Chloride 108 H, Carbon Dioxide 26.0, Anion Gap 4 L, BUN 15, Creatinine 1.01, Estim Creat Clear Calc 42.84, Est GFR (MDRD) Af Amer 69, Est GFR (MDRD) Non-Af 57 L, BUN/Creatinine Ratio 14.9, Glucose 96, Calcium 9.1 Radiography Diagnostic Testing: Radiology Impression Echocardiogram 12/10/22 15:58 Interpretation Summary Mild concentric left ventricular hypertrophy. Stage 3 diastolic dysfunction. The left ventricular ejection fraction is 60 %. Mild global right ventricular systolic dysfunction. The left atrium is severely enlarged. The right atrium is moderately enlarged. Mechanical mitral valve prosthesis appears to function normally. Bioprosthetic aortic valve functioning normally. Ordering Physician: Damian Lux Referring Physician: Tom Fox Performed By: Miguelito Tompkins and Student Rhythm Strip Rhythm Strip: Sinus Rhythm Physical Exam Narrative Physical Examination: General: Awake, alert, oriented x 3 and cooperative, seated upright in PCU bed, no acute distress. Skin: Normal color, normal turgor, no icterus, no cyanosis except for excepted staged ecchymoses secondary to likely lab draws/IV. HEENT: AT/NC, EOMI, PERRLA, MMM. Lungs: Mildly diminished, greater bases, appropriate effort, no rales, ronchi or wheezing. Heart: Regular rate and rhythm; no gallop, rub audible, significant metallic snap, + SM. Abdomen: Soft, NTTP, ND, normal BS. Extremities: No cyanosis, clubbing, or edema. Neurological: Patient awake, alert, oriented as noted, cognitive function intact; pupils equally reactive to light and accommodation, cranial nerves II-XII grossly normal, moving all 4 extremities, no focal deficits, strength improving, mildly to moderately global decrease. Psychiatric: Affect appears normal, no acute evidence of depressive or anxiety feelings. Assessment & Plan Assessment/Plan (1) Near syncope: (2) GI bleed: PLAN: Plan The patient is a 72 y/o Mandaen F w/ PMHx: Valvular Heart Disease s/p Mechanical MV on coumadin and TAVR, HTN, HLD, GERD, Depression and Anxiety, Asthma, PAF/Flutter who presents to [facility] ED on 12/10/22 with history of lightheadedness, diaphoresis, fatigue and weakness as well as confusion with onset while shopping with EMS evaluation with demonstration of junctional rhythm with a heart rate 42 administered atropine with improvement of heart rate into the 60s with demonstration upon ED arrival sinus bradycardia with mild hypoxia 86% on room air. #1. Acute hypoxia secondary to Acute Decompensated Diastolic CHF: CXR obtained in the ED w/ appearance of volume overload. Patient administered IV x1, cardiac enzymes unremarkable, 12/11/2022 echocardiogram with mild concentric LVH, stage III diastolic dysfunction, EF 60%, mild global RV systolic dysfunction, severely enlarged LA and RA, mechanical mitral valve prosthesis appeared to be functioning normally, bioprosthetic AV functioning normally, maintained on Coumadin with close INR trending given GI bleed, statin therapy, not on DAMIEN inhibitor nor ARB, beta-mike held as noted above, recommendation of pulse dose Lasix only as needed. Appears currently compensated improved. TSH 0.81. Magnesium level requested. #2. Acute Lower GI Bleed/hematochezia w/ resultant Acute Blood Loss Anemia with possible gastritis/inflammation of descending and sigmoid colon: Patient during admission with onset of lower GI bleed with noted 3 bloody bowel movements following admission, given Mandaen unable to receive blood products, gastroenterology consulted, CT a abdomen and pelvis with colitis of descending and sigmoid colon, fatty liver, evidence pulmonary edema, evidence gastritis, left adnexa with a cystic area measuring 49 x 41 mm which is enlarged and may be a vaginal cyst or ovarian cyst with trace pelvic ascites. Plan for EGD and flexible sigmoid diascopy with initial preference per GI for initiation of tapwater enema, maintain on Protonix 40 mg IV twice daily, trending INR closely, complicated presentation given her mechanical mitral valve as well as TAVR history. 12/12/2022 hemoglobin 12.3, INR pending. #3. Near syncopal event with associated junctional rhythm/bradycardia: Multifactorial, suspected likely vasovagal secondary constipation and difficulty moving her bowels, coupled with onset of lower GI bleed as well as volume overload, 12/11/2022 echocardiogram with mild concentric LVH, stage III diastolic dysfunction, EF 60%, mild global RV systolic dysfunction, severely enlarged LA and RA, mechanical mitral valve prosthesis appeared to be functioning normally, bioprosthetic AV functioning normally, cardiac enzyme trending unremarkable EKG eventually upon ED presentation as noted with sinus bradycardia, Recommendation per cardiology to have a 24-hour Holter monitor at discharge and discontinuation of beta-mike. 12/13/2019 3 AM patient with recurrent episode of decreased heart rate with mild dyspneic sensation although quickly returned to a rate of 60s with resolution of symptoms, awaiting repeat cardiology evaluation prior to consideration for discharge. #4. Valvular heart disease: Patient status post mitral mechanical valve as well as TAVR with bioprosthetic AV valve, history of prior aortic stenosis with bicuspid valve, maintained on Coumadin, INR therapeutic upon presentation, repeat 12/12 INR pending with close continued monitoring given hematochezia as well, cardiology consulted and following, as noted planned EGD and colonoscopy and if clinically remained stable with stable hemoglobin would continue chronic Coumadin therapy however if ongoing may need to consider transfer to tertiary care. #5. PAF/flutter: Continued on Coumadin with close INR trending given presentation, rate controlled currently, continue flecainide regimen, cardiology following as noted. #6. Incidental left adnexal cyst: CTA with a cystic left adnexal finding 49 x 41 mm, enlarged from prior, unclear significance, encourage continued outpatient follow-up, asymptomatic. #7. Chronic asthma: Not on any chronic regimen, if necessary may add as needed albuterol, encourage head of bed and I-S. #8. Chronic Kidney Disease Stage IIIb: Admission BUN/Cr 16/1.23, baseline renal function appears primarily 0.9-1.1, 12/12/2022 BUN/creatinine 15/1.01, continue to trend. #9. Anxiety and depression: We will continue patient home Paxil regimen. #10. Hypertension: Holding patient beta-mike therapy as noted, as needed IV hydralazine in interim. #11. Hyperlipidemia: We will continue patient on statin therapy. #12. GERD: Continue patient home PPI. #13. DVT Prophylaxis: Continue Coumain with close INR monitoring given acute presentation as noted. #14. CODE status: Full Code. Admission Evaluation Time spent evaluating chart, patient history, patient evaluation, care planning and discussion with specialists: 50 minutes. Charges/Coding Visit Charges Inpatient E&M: [address] [facility] L3
[2022-12-12 09:17] LABS: Magnesium 2.3 mg/dL (1.6-2.6)
[2022-12-12] MEDS: PARoxetine 10 MG Tablet PO (10:20)
[2022-12-12] MEDS: Flecainide 100 MG Tablet PO ×2 (10:20→20:20)
[2022-12-12] MEDS: Polyethylene Glycol 3350 17 GM PACKET PO (13:54)
[2022-12-12 14:26] LABS: Hematocrit 38.8 % (37-47)
[2022-12-12 14:30] VITALS: BP 149/64; PULSE 55; RESP 16; TEMP 36.7; O2SAT 98
--- NOTE | 2022-12-12 19:18 | EX.PCM.PN.GI ---
Subjective Subjective Patient underwent colonoscopy yesterday. She tolerated procedure without any problems. Patient did have another episode of bradycardia today. She denies any chest pain or shortness of breath. Objective Data Objective Data Vital Signs: Vital Signs Temp Pulse Resp BP Pulse Ox O2 Del Method O2 Flow Rate 98.0 F 55 L 16 149/64 H 98 Nasal Cannula 2 12/12/22 14:30 12/12/22 14:30 12/12/22 14:30 12/12/22 14:30 12/12/22 14:30 12/12/22 14:30 12/12/22 14:30 Oxygen Flow Rate (L/min) 2 Oxygen Delivery Method Nasal Cannula Weight: 149 lb 0.52 oz Body Mass Index (BMI) 25.5 Intake & Output: Intake and Output for Last 24 Hours 12/10/22 12/11/22 12/12/22 23:59 23:59 23:59 Intake Total 1240 / 1240 1655 / 1655 460 / 460 Output Total 600 / 600 Balance 1240 / 1040 1055 / 1055 460 / 460 Lab / Micro Data Result Diagrams: 12/12/22 14:16 12/12/22 06:11 Labs: Laboratory Results - last 24 hr 12/11/22 22:26: Hgb 11.6 L, Hct 36.6 L 12/12/22 06:11: WBC 9.5, RBC 4.39, Hgb 12.3, Hct 39.2, MCV 89.3, MCH 28.0, MCHC 31.4 L, RDW Std Deviation 44.3 H, RDW Coeff of Teodora 13.6, Plt Count 232, MPV 9.0, Immature Gran % (Auto) 0.500, Neut % (Auto) 70.4 H, Lymph % (Auto) 19.4, [place] % (Auto) 7.5, Eos % (Auto) 1.8, Baso % (Auto) 0.4, Absolute Neuts (auto) 6.7, Absolute Lymphs (auto) 1.85, Nucleated RBC % 0 12/12/22 06:11: Sodium 138, Potassium 3.7, Chloride 108 H, Carbon Dioxide 26.0, Anion Gap 4 L, BUN 15, Creatinine 1.01, Estim Creat Clear Calc 42.84, Est GFR (MDRD) Af Amer 69, Est GFR (MDRD) Non-Af 57 L, BUN/Creatinine Ratio 14.9, Glucose 96, Calcium 9.1 12/12/22 06:11: Magnesium 2.3 12/12/22 14:16: Hgb 12.0, Hct 38.8 Rhythm Strip Rhythm Strip: Sinus Rhythm Physical Exam Narrative Physical Examination: General: Awake, alert, oriented x 3 and cooperative, seated upright in PCU bed, no acute distress. Skin: Normal color, normal turgor, no icterus, no cyanosis except for excepted staged ecchymoses secondary to likely lab draws/IV. HEENT: AT/NC, EOMI, PERRLA, MMM. Lungs: Mildly diminished, greater bases, appropriate effort, no rales, ronchi or wheezing. Heart: Regular rate and rhythm; no gallop, rub audible, significant metallic snap, + SM. Abdomen: Soft, NTTP, ND, normal BS. Extremities: No cyanosis, clubbing, or edema. Neurological: Patient awake, alert, oriented as noted, cognitive function intact; pupils equally reactive to light and accommodation, cranial nerves II-XII grossly normal, moving all 4 extremities, no focal deficits, strength improving, mildly to moderately global decrease. Psychiatric: Affect appears normal, no acute evidence of depressive or anxiety feelings. Assessment & Plan Assessment/Plan (1) Near syncope: PLAN: Plan Assessment and plan 1. Near syncope. Cardiogenic (alana-arrhythmogenic) versus orthostatic versus vasovagal. Junctional rhythm reported out in the field, however here patient was in sinus bradycardia. May benefit from Holter/event monitor at discharge as per cardiology. 2. Valvular heart disease. Status post mechanical mitral valve replacement and with known aortic stenosis from bicuspid valve. Patient is compliant with her Coumadin. INR therapeutic. We will continue. 3. Paroxysmal atrial fibrillation. Controlled. 4. GI bleed secondary to ischemic colitis. Patient is doing very well and has not had any more signs of bleeding. Recommend aggressive bowel regimen to prevent recurrence. Charges/Coding Visit Charges Inpatient E&M: 40701 Subs Hosp L3
[2022-12-12 19:46] VITALS: BP 126/65; PULSE 56; RESP 16; TEMP 36.5; O2SAT 96
[2022-12-12] MEDS: Atorvastatin Calcium 20 MG Tablet PO (20:20)
[2022-12-13 01:45] VITALS: BP 118/62; PULSE 55; RESP 14; TEMP 36.3; O2SAT 97
[2022-12-13 06:31] LABS: Absolute Lymphocyte Count 1.76 X10^3/uL (0.83-4.51); Absolute Neutrophil Count 4.6 X10^3/uL (2.0-7.7); Basophil# 0.02 X10^3/uL; Basophil% 0.3 % (0-1); Eosinophil# 0.27 X10^3/uL; Eosinophils% 3.6 % (0-5); Hematocrit 35.5 % (37-47); Hemoglobin 11.1 g/dL (12.0-15.0); Lymphocyte # 1.76 X10^3/ul (0.83-4.51); Lymphocyte % 23.4 % (19-41); Mean Corp Hgb Conc 31.3 g/dL (32-36); Mean Corpuscular Hgb 28.2 pg (27.0-32.0); Mean Corpuscular Volume 90.3 fL (81-99); Mean Platelet Vol. 9.1 fl (6.2-12.0); Monocyte% 10.6 % (0-10); NRBC Flagged by Analyzer 0 % (0-5); Neutrophil # 4.64 X10^3/uL (2.7-7.7); Neutrophil % 61.7 % (47-70); Platelet Count 205 K/mm3 (150-450); RBC Distribution Width CV 13.4 % (11.6-14.6); Red Blood Count 3.93 M/mm3 (4.2-5.4); White Blood Count 7.5 K/mm3 (4.4-11.0)
--- NOTE | 2022-12-13 06:32 | PN.HOSP_ITS ---
Reason for Visit Reason for Visit: Diagnoses Paroxysmal atrial fibrillation (12/11/22) Constipation, unspecified (12/11/22) Gastrointestinal hemorrhage, unspecified (12/11/22) Shortness of breath (12/11/22) Other fatigue (12/11/22) Syncope and collapse (12/11/22) Presence of prosthetic heart valve (12/11/22) Subjective Subjective Patient overnight without acute events per self or nusing report. She did per discussion with RN have one episode where her HR decreased transiently into the mid 40s but resolved quickly and returned into the 60s. She denies any marked LH, dizziness, chest pain, palpitations but did report mild dyspnea sensation t hat resolved. She did not a normal BM. She denies any fever, chills, nausea, emesis, diarrhea, abdominal pain. Objective Data Objective Data Vital Signs: Vital Signs Temp Pulse Resp BP Pulse Ox O2 Del Method O2 Flow Rate 97.4 F L 55 L 14 118/62 97 Nasal Cannula 2 12/13/22 01:45 12/13/22 01:45 12/13/22 01:45 12/13/22 01:45 12/13/22 01:45 12/13/22 01:45 12/13/22 04:00 Oxygen Flow Rate (L/min) 2 Oxygen Delivery Method Nasal Cannula Weight: 149 lb 0.52 oz Body Mass Index (BMI) 25.5 Intake & Output: Intake and Output for Last 24 Hours 12/11/22 12/12/22 12/13/22 23:59 23:59 23:59 Intake Total 1655 / 1655 570 / 570 50 / 50 Output Total 600 / 600 Balance 1055 / 1055 570 / 570 50 / 50 Lab / Micro Data Result Diagrams: 12/13/22 05:44 12/13/22 05:44 Labs: Laboratory Results - last 24 hr 12/12/22 06:11: WBC 9.5, RBC 4.39, Hgb 12.3, Hct 39.2, MCV 89.3, MCH 28.0, MCHC 31.4 L, RDW Std Deviation 44.3 H, RDW Coeff of Teodora 13.6, Plt Count 232, MPV 9.0, Immature Gran % (Auto) 0.500, Neut % (Auto) 70.4 H, Lymph % (Auto) 19.4, [place] % (Auto) 7.5, Eos % (Auto) 1.8, Baso % (Auto) 0.4, Absolute Neuts (auto) 6.7, Absolute Lymphs (auto) 1.85, Nucleated RBC % 0 12/12/22 06:11: Sodium 138, Potassium 3.7, Chloride 108 H, Carbon Dioxide 26.0, Anion Gap 4 L, BUN 15, Creatinine 1.01, Estim Creat Clear Calc 42.84, Est GFR (MDRD) Af Amer 69, Est GFR (MDRD) Non-Af 57 L, BUN/Creatinine Ratio 14.9, Glucose 96, Calcium 9.1 12/12/22 06:11: Magnesium 2.3 12/12/22 14:16: Hgb 12.0, Hct 38.8 12/13/22 05:44: WBC 7.5, RBC 3.93 L, Hgb 11.1 L, Hct 35.5 L, MCV 90.3, MCH 28.2, MCHC 31.3 L, RDW Std Deviation 45.0 H, RDW Coeff of Teodora 13.4, Plt Count 205, MPV 9.1, Immature Gran % (Auto) 0.400, Neut % (Auto) 61.7, Lymph % (Auto) 23.4, [place] % (Auto) 10.6 H, Eos % (Auto) 3.6, Baso % (Auto) 0.3, Absolute Neuts (auto) 4.6, Absolute Lymphs (auto) 1.76, Nucleated RBC % 0 Rhythm Strip Rhythm Strip: Sinus Rhythm Physical Exam Narrative Physical Examination: General: Awake, alert, oriented x 3 and cooperative, seated upright in PCU bedside chair, no acute distress. Skin: Normal color, normal turgor, no icterus, no cyanosis except for excepted staged ecchymoses. HEENT: AT/NC, EOMI, PERRLA, MMM. Lungs: Mildly diminished, greater bases, appropriate effort, no rales, ronchi or wheezing. Heart: Regular rate and rhythm; no gallop, rub audible, significant metallic snap, + SM. Abdomen: Soft, NTTP, ND, normal BS. Extremities: No cyanosis, clubbing, or edema. Neurological: Patient awake, alert, oriented as noted, cognitive function intact; pupils equally reactive to light and accommodation, cranial nerves II- XII grossly normal, moving all 4 extremities, no focal deficits, strength improving, mild global decrease. Psychiatric: Affect appears normal, no acute evidence of depressive or anxiety feelings. Assessment & Plan Assessment/Plan (1) Near syncope: (2) GI bleed: PLAN: Plan The patient is a 72 y/o Judaism F w/ PMHx: Valvular Heart Disease s/p Mechanical MV on coumadin and TAVR, HTN, HLD, GERD, Depression and Anxiety, Asthma, PAF/Flutter who presents to the [facility] ED on 12/10/22 with history of lightheadedness, diaphoresis, fatigue and weakness as well as confusion with onset while shopping with EMS evaluation with demonstration of junctional rhythm with a heart rate 42 administered atropine with improvement of heart rate into the 60s with demonstration upon ED arrival sinus bradycardia with mild hypoxia 86% on room air. #1. Acute hypoxia secondary to Acute Decompensated Diastolic CHF: CXR obtained in the ED w/ appearance of volume overload. Patient administered IV x1, cardiac enzymes unremarkable, 12/11/2022 echocardiogram with mild concentric LVH, stage III diastolic dysfunction, EF 60%, mild global RV systolic dysfunction, severely enlarged LA and RA, mechanical mitral valve prosthesis appeared to be functioning normally, bioprosthetic AV functioning normally, maintained on Coumadin with close INR trending given GI bleed, statin therapy, not on DAMIEN inhibitor nor ARB, beta-mike held as noted above, recommendation of pulse dose Lasix only as needed. TSH 0.81. Magnesium level 2.3. As noted Cardiology following, planned follow-up outpatient in addition to 48 hours HM assessment at discharge as noted. #2. Acute Lower GI Bleed/hematochezia w/ resultant Acute Blood Loss Anemia with possible gastritis/inflammation of descending and sigmoid colon: Patient during admission with onset of lower GI bleed with noted 3 bloody bowel movements following admission, given Judaism unable to receive blood products, gastroenterology consulted, CT a abdomen and pelvis with colitis of descending and sigmoid colon, fatty liver, evidence pulmonary edema, evidence gastritis, left adnexa with a cystic area measuring 49 x 41 mm which is enlarged and may be a vaginal cyst or ovarian cyst with trace pelvic ascites. Endoscopies with evidence of ischemic colitis with recommendation for continued PPI, aggressive bowel regimen with miralax BID and close Hgb, INR trending. 12/12/2022 hemoglobin 12.3-->12/13/22 Hgb 11.1, 12/13/22 INR 2.1. Transitioned patient to BID miralax and oral PPI. Gastroenterology amenable for continuation of her anticoagulation with continued outpatient Hgb/INR rechecks. Will plan for #3. Near syncopal event with associated junctional rhythm/bradycardia: Multifactorial, suspected likely vasovagal secondary constipation and difficulty moving her bowels, coupled with onset of lower GI bleed as well as volume overload, 12/11/2022 echocardiogram with mild concentric LVH, stage III diastolic dysfunction, EF 60%, mild global RV systolic dysfunction, severely enlarged LA and RA, mechanical mitral valve prosthesis appeared to be functioning normally, bioprosthetic AV functioning normally, cardiac enzyme trending unremarkable EKG eventually upon ED presentation as noted with sinus bradycardia, 12/12/22 symptomatic bradycardia but resolved. 12/13/22 very transient episode bradycardia and minimally symptomatic. Discussed with Cardiology and amenable to discharge with continued d/c BB therapy and 48-hr HM set-up at discharge. #4. Valvular heart disease: Patient status post mitral mechanical valve as well as TAVR with bioprosthetic AV valve, history of prior aortic stenosis with bicuspid valve, maintained on Coumadin w/ close INR trending, cardiology consulted and following, s/p endoscopies as noted with evidence ischemic col itis. At discharge will follow early with PCP to obtain repeat HH and INR. #5. PAF/flutter: Continued on Coumadin with close INR trending given presentation, rate controlled currently, continue flecainide regimen, cardiology following as noted. #6. Incidental left adnexal cyst: CTA with a cystic left adnexal finding 49 x 41 mm, enlarged from prior, unclear significance, encourage continued outpatient follow-up, asymptomatic. #7. Chronic asthma: Not on any chronic regimen, if necessary may add as needed albuterol, encourage head of bed and I-S. #8. Chronic Kidney Disease Stage IIIb: Admission BUN/Cr 16/1.23, baseline renal function appears primarily 0.9-1.1, 12/13/2022 BUN/creatinine 19/0.98, continue to trend. #9. Anxiety and depression: We will continue patient home Paxil regimen. #10. Hypertension: Holding patient beta-mike therapy as noted, as needed IV hydralazine in interim. #11. Hyperlipidemia: We will continue patient on statin therapy. #12. GERD: Continue patient home PPI. #13. DVT Prophylaxis: Continue Coumain with close INR monitoring given acute presentation as noted. #14. CODE status: Full Code. Admission Evaluation Time spent evaluating chart, patient history, patient evaluation, care planning and discussion with specialists: 35 minutes. Charges/Coding Visit Charges Inpatient E&M: 02342 Subs Hosp L2
[2022-12-13 06:39] LABS: International Normalized Ratio 2.1; Prothrombin Time (Protime)PT. 23.3 SECONDS (11.7-14.9)
[2022-12-13 07:05] LABS: ALB/GLOB Ratio 0.8 RATIO (0.9-2.4); AST(SGOT) 13 U/L (15-37); Alanine Aminotransfer ALT/SGPT 14 U/L (13-56); Albumin, Serum 2.9 g/dL (3.2-5.0); Alkaline Phosphatase 55 U/L (45-117); Anion Gap 3 (5-15); BUN 19 mg/dL (7-18); BUN/Creat Ratio 19.3 RATIO (10-20); Chloride 110 mmol/L (98-107); Creatinine, Serum 0.98 mg/dL (0.55-1.02); EST Glomerular Filtration Rate 59 mL/min (>60); Est Glom Filt Rate - Afr Amer 71 mL/min (>60); Estimated Creatinine Clearance 44.15 ml/min; Globulin 3.6 g/dL (2.2-4.2); Glucose 83 mg/dL (74-106); Potassium 3.5 mmol/L (3.5-5.1); Protein, Total 6.5 g/dL (6.4-8.2); Sodium Level 141 mmol/L (136-145)
[2022-12-13 07:45] VITALS: BP 153/75; PULSE 60; RESP 16; TEMP 36.2; O2SAT 95
[2022-12-13 07:59] VITALS: O2SAT 94
[2022-12-13] MEDS: predniSONE 20 MG Tablet PO (08:06)
[2022-12-13] MEDS: PARoxetine 10 MG Tablet PO (08:06)
[2022-12-13] MEDS: Flecainide 100 MG Tablet PO (08:06)
--- NOTE | 2022-12-13 09:57 | PN.GI_ITS ---
Subjective Subjective Patient is tolerating a diet. She did have bowel movement overnight without any signs of blood. Objective Data Objective Data Vital Signs: Vital Signs Temp Pulse Resp BP Pulse Ox O2 Del Method O2 Flow Rate 97.1 F L 60 16 153/75 H 94 Room Air 2 12/13/22 07:45 12/13/22 07:45 12/13/22 07:45 12/13/22 07:45 12/13/22 07:59 12/13/22 07:59 12/13/22 07:45 Oxygen Flow Rate (L/min) 2 Oxygen Delivery Method Room Air Weight: 149 lb 0.52 oz Body Mass Index (BMI) 25.5 Intake & Output: Intake and Output for Last 24 Hours 12/11/22 12/12/22 12/13/22 23:59 23:59 23:59 Intake Total 1655 / 1655 570 / 570 100 / 100 Output Total 600 / 600 Balance 1055 / 1055 570 / 570 100 / 100 Lab / Micro Data Result Diagrams: 12/13/22 05:44 12/13/22 05:44 Labs: Laboratory Results - last 24 hr 12/12/22 14:16: Hgb 12.0, Hct 38.8 12/13/22 05:44: WBC 7.5, RBC 3.93 L, Hgb 11.1 L, Hct 35.5 L, MCV 90.3, MCH 28.2, MCHC 31.3 L, RDW Std Deviation 45.0 H, RDW Coeff of Teodora 13.4, Plt Count 205, MPV 9.1, Immature Gran % (Auto) 0.400, Neut % (Auto) 61.7, Lymph % (Auto) 23.4, [place] % (Auto) 10.6 H, Eos % (Auto) 3.6, Baso % (Auto) 0.3, Absolute Neuts (auto) 4.6, Absolute Lymphs (auto) 1.76, Nucleated RBC % 0 12/13/22 05:44: PT 23.3 H, INR 2.1 12/13/22 05:44: Sodium 141, Potassium 3.5, Chloride 110 H, Carbon Dioxide 28.0, Anion Gap 3 L, BUN 19 H, Creatinine 0.98, Estim Creat Clear Calc 44.15, Est GFR (MDRD) Af Amer 71, Est GFR (MDRD) Non-Af 59 L, BUN/Creatinine Ratio 19.3, Glucose 83, Calcium 9.0, Total Bilirubin 0.50, AST 13 L, ALT 14, Alkaline Phosphatase 55, Total Protein 6.5, Albumin 2.9 L, Globulin 3.6, Albumin/Globulin Ratio 0.8 L Rhythm Strip Rhythm Strip: Sinus Rhythm Physical Exam Narrative Physical Examination: General: Awake, alert, oriented x 3 and cooperative, seated upright in PCU bed, no acute distress. Skin: Normal color, normal turgor, no icterus, no cyanosis except for excepted staged ecchymoses secondary to likely lab draws/IV. HEENT: AT/NC, EOMI, PERRLA, MMM. Lungs: Mildly diminished, greater bases, appropriate effort, no rales, ronchi or wheezing. Heart: Regular rate and rhythm; no gallop, rub audible, significant metallic snap, + SM. Abdomen: Soft, NTTP, ND, normal BS. Extremities: No cyanosis, clubbing, or edema. Neurological: Patient awake, alert, oriented as noted, cognitive function intact; pupils equally reactive to light and accommodation, cranial nerves II- XII grossly normal, moving all 4 extremities, no focal deficits, strength improving, mildly to moderately global decrease. Psychiatric: Affect appears normal, no acute evidence of depressive or anxiety feelings. Assessment & Plan Assessment/Plan (1) Near syncope: PLAN: Plan Assessment and plan 1. Near syncope. Cardiogenic (alana-arrhythmogenic) versus orthostatic versus vasovagal. Junctional rhythm reported out in the field, however here patient was in sinus bradycardia. May benefit from Holter/event monitor at discharge as per cardiology. 2. Valvular heart disease. Status post mechanical mitral valve replacement and with known aortic stenosis from bicuspid valve. Patient is compliant with her Coumadin. INR therapeutic. We will continue. 3. Paroxysmal atrial fibrillation. Controlled. 4. GI bleed secondary to ischemic colitis. Patient is doing very well and has not had any more signs of bleeding. Recommend aggressive bowel regimen to prevent recurrence. Charges/Coding Visit Charges Inpatient E&M: 42856 Subs Hosp L3
--- NOTE | 2022-12-13 11:59 | PCM.DC ---
Discharge Instructions Diet Discharge Diet: Low fat / Low cholesterol Activity Discharge Activity: - (Avoid aggressive activity until re-evaluation following HM assessment.) Dressing / Incision Call your doctor if you observe: Fever of 101 or Higher, Inability to urinate, Dizziness, Swelling in the ankles, Chest pain, Increased palpitations (irregular heartbeat) and Uncontrolled pain Follow Up Care Test Results: Test results from this visit will be discussed in further detail at your follow-up appointment, if applicable. Discharge Plan Admission Admit Date/Time: 12/11/22 11:52 Primary Reason for Your Visit: Syncope, Bradycardia, Decompensated CHF, GI bleed Attending Provider: Mary Marx Primary Care Provider: Tom Fox Consulting Providers: Sherri Boucher ; Damian Lux ; Lainey Ingram Instructions Additional Instructions / Restrictions: ADDITIONAL INSTRUCTIONS: Please closely follow-up with your primary care physician and have repeat INR as well as hemoglobin assessment given need for continued chronic anticoagulation secondary to underlying mechanical valve. If your hemoglobin drops or you have any recurrent bleeding issues please immediately call Dr. Mendoza office. Discharge Orders/Prescriptions Prescriptions: New polyethylene glycol 3350 17 gram Powder In Packet 17 g PO BID 30 Days Qty: 100 1RF Rx Instructions: May hold for loose stools. pantoprazole [Protonix] 40 mg tablet,delayed release (DR/EC) 40 mg PO BID 30 Days Qty: 60 0RF amoxicillin-pot clavulanate 875-125 mg tablet 1 tab PO Q8H 6 Days Qty: 18 0RF Continued triamcinolone acetonide 0.1 % cream 1 applic TOPICAL .COMPLEX Label Comments: 1 applic TOPICAL as directed; Rx Instructions: 1 applic TOPICAL as directed; warfarin 2.5 mg tablet 2.5 mg PO DAILY Label Comments: managed by Rx Instructions: managed by Dr.Hannan Kent Pen 40 mg/0.8 mL pen injector kit See Rx Instructions .ROUTE .COMPLEX Rx Instructions: 40 mg subcutaneously, every 2 weeks clobetasol 0.05 % cream 1 applic topical DAILY PRN (Reason: PSORIASIS) flecainide 100 mg tablet 100 mg PO BID albuterol sulfate 90 mcg/actuation HFA aerosol inhaler 2 puff inhalation Q6H PRN (Reason: shortness of breath or wheezing) Qty: 6.7 0RF paroxetine HCl [Paxil] 20 mg tablet 10 mg PO DAILY simvastatin 40 mg tablet 40 mg PO QPM Qty: 90 3RF Discontinued atenolol 25 mg tablet 12.5 mg PO DAILY Qty: 45 3RF Other Ambulatory Orders: Cardiac Holter Monitor, 48 Hrs (Routine) Timeframe: 1 Day Facility: [facility] - Location: Cardiovascular Services Ordered By: Dr. Mary Marx Referrals / Follow Up: Sherri Boucher MD [Med Staff - Active Staff] - (Follow-up in 2 weeks, may see SHOE RECONDITIONER.) Tom Fox DO [Primary Care Provider] - (Follow-up in 2-3 days for close re-evaluation, repeat INR check and Hgb recheck.) FriendAlfredo DO [Med Staff - Active Staff] - (Follow-up at first open visit for re-evaluation constipation, recent endoscopy with ischemic colitis.) Disposition Disposition (needs filled in before D/C Order can be placed): Home, Self Care
--- NOTE | 2022-12-13 14:49 | DS.PCM_ITS ---
Providers Date of Admission: 12/11/22 Date of Discharge: 12/13/22 Primary Care Physician: Dr. Tom Fox, DO Consultations 12/10/22 15:58 Consult: Cardiology Routine Consulting Provider: Sherri Boucher Reason for Consult: bradycardia, near syncope EMERGENT Consult: No Notified: Yes Date Notified: 12/10/22 Time Notified: 16:14 Method of Notification: Text 12/10/22 18:14 Consult: Gastroenterology Routine Consulting Provider: [facility] Reason for Consult: LGIB EMERGENT Consult: No Notified: Yes Date Notified: 12/10/22 Time Notified: 18:26 Method of Notification: Text Reason For Visit: NEAR SYNCOPE Diagnosis Discharge Diagnosis (1) Near syncope: Status: Acute Code(s): R55 - Syncope and collapse (2) GI bleed: Status: Acute Code(s): K92.2 - Gastrointestinal hemorrhage, unspecified Plan: Discharge Diagnoses: #1. Acute hypoxia secondary to Acute Decompensated Diastolic CHF #2. Acute Lower GI Bleed/hematochezia w/ resultant Acute Blood Loss Anemia with possible gastritis/inflammation of descending and sigmoid colon/Ischemic colitis #3. Near syncopal event with associated junctional rhythm/bradycardia #4. Valvular heart disease #5. PAF/flutter #6. Incidental left adnexal cyst #7. Chronic asthma #8. Chronic Kidney Disease Stage IIIb #9. Anxiety and depression #10. Hypertension #11. Hyperlipidemia #12. GERD Plan The patient is a 72 y/o Nondenominational F w/ PMHx: Valvular Heart Disease s/p Mechanical MV on coumadin and TAVR, HTN, HLD, GERD, Depression and Anxiety, Asthma, PAF/Flutter who presented to the [facility] ED on 12/10/22 with history of l ightheadedness, diaphoresis, fatigue and weakness as well as confusion with onset while shopping with EMS evaluation with demonstration of junctional rhythm with a heart rate 42 administered atropine with improvement of heart rate into the 60s with demonstration upon ED arrival sinus bradycardia with mild hypoxia 86% on room air. CXR obtained in the ED w/ appearance of volume overload. Patient administered IV x1, cardiac enzymes unremarkable, 12/11/2022 echocardiogram with mild concentric LVH, stage III diastolic dysfunction, EF 60%, mild global RV systolic dysfunction, severely enlarged LA and RA, mechanical mitral valve prosthesis appeared to be functioning normally, bioprosthetic AV functioning normally, maintained on Coumadin with close INR trending given GI bleed, statin therapy, not on DAMIEN inhibitor nor ARB, beta- mike held as noted above, recommendation of pulse dose Lasix only as needed. TSH 0.81. Magnesium level 2.3. Patient during admission with onset of lower GI bleed with noted 3 bloody bowel movements following admission, given Nondenominational unable to receive blood products, gastroenterology consulted, CT a abdomen and pelvis with colitis of descending and sigmoid colon, fatty liver, evidence pulmonary edema, evidence gastritis, left adnexa with a cystic area me asuring 49 x 41 mm which is enlarged and may be a vaginal cyst or ovarian cyst with trace pelvic ascites. Endoscopies with evidence of ischemic colitis with recommendation for continued PPI, aggressive bowel regimen with miralax BID and close Hgb, INR trending. 12/12/2022 hemoglobin 12.3-->12/13/22 Hgb 11.1, 12/13/22 INR 2.1. Transitioned patient to BID miralax and oral PPI. Gastroenterology amenable for continuation of her anticoagulation with continued outpatient Hgb/INR rechecks. 12/12/22 symptomatic bradycardia but resolved. 12/13/22 very transient episode bradycardia and minimally symptomatic. Discussed with Cardiology and amenable to discharge with continued d/c BB therapy and 48-hr HM set-up at discharge. Patient discharged to home in stable improved condition with continued abx therapy, bowel regimen, PPI BID, early PCP follow-up for HH and INR repeat with follow-up also with GI and Cardiology as well as 48-HM set- up at discharge. Medications at Discharge Home Medications triamcinolone acetonide 0.1 % topical cream 1 applic topical .COMPLEX 04/30/18 warfarin 2.5 mg tablet 2.5 mg PO DAILY Mitral valve 11/18/18 paroxetine HCl 20 mg tablet (Paxil) 10 mg PO DAILY 05/11/19 adalimumab 40 mg/0.8 mL subcutaneous pen kit (Humira Pen) See Rx Instructions .Route .COMPLEX Check with primary doctor 03/07/21 clobetasol 0.05 % topical cream 1 applic topical DAILY PRN PSORIASIS 01/15/22 flecainide 100 mg tablet 100 mg PO BID 07/14/22 simvastatin 40 mg tablet 40 mg PO QPM #90 tabs 08/04/22 albuterol sulfate 90 mcg/actuation aerosol inhaler 2 puff inhalation Q6H PRN shortness of breath or wheezing #6.7 grams 09/13/22 amoxicillin 875 mg-potassium clavulanate 125 mg tablet 1 tab PO Q8H 6 days #18 tabs 12/13/22 pantoprazole 40 mg tablet,delayed release (Protonix) 40 mg PO BID 30 days #60 tabs 12/13/22 polyethylene glycol 3350 17 gram oral powder packet 17 g PO BID 30 days #100 ea 12/13/22 Weight / BMI Weight Weight: 149 lb 0.52 oz Body Mass Index (BMI) 25.5 ABG / Lab / Microbiology Data Result Diagrams: 12/13/22 05:44 12/13/22 05:44 Laboratory: Laboratory Results - last 24 hr 12/13/22 05:44: WBC 7.5, RBC 3.93 L, Hgb 11.1 L, Hct 35.5 L, MCV 90.3, MCH 28.2, MCHC 31.3 L, RDW Std Deviation 45.0 H, RDW Coeff of Teodora 13.4, Plt Count 205, MPV 9.1, Immature Gran % (Auto) 0.400, Neut % (Auto) 61.7, Lymph % (Auto) 23.4, [place] % (Auto) 10.6 H, Eos % (Auto) 3.6, Baso % (Auto) 0.3, Absolute Neuts (auto) 4.6, Absolute Lymphs (auto) 1.76, Nucleated RBC % 0 12/13/22 05:44: PT 23.3 H, INR 2.1 12/13/22 05:44: Sodium 141, Potassium 3.5, Chloride 110 H, Carbon Dioxide 28.0, Anion Gap 3 L, BUN 19 H, Creatinine 0.98, Estim Creat Clear Calc 44.15, Est GFR (MDRD) Af Amer 71, Est GFR (MDRD) Non-Af 59 L, BUN/Creatinine Ratio 19.3, Glucose 83, Calcium 9.0, Total Bilirubin 0.50, AST 13 L, ALT 14, Alkaline Phosphatase 55, Total Protein 6.5, Albumin 2.9 L, Globulin 3.6, Albumin/Globulin Ratio 0.8 L D/C Instructions Discharge Diet: Low fat / Low cholesterol Call your doctor if you observe: Fever of 101 or Higher, Inability to urinate, Dizziness, Swelling in the ankles, Chest pain, Increased palpitations (irregular heartbeat) and Uncontrolled pain Meaningful Use Info Meaningful Use Diagnoses (Choose all that apply): CHF CHF DAMIEN/ARB ordered at discharge?: No Reason DAMIEN/ARB not ordered?: Hypotension Documented LVEF (%): 60 Discharge Plan Admission Admit Date/Time: 12/11/22 11:52 Primary Reason for Your Visit: Syncope, Bradycardia, Decompensated CHF, GI bleed Attending Provider: Mary Marx Primary Care Provider: Tom Fox Consulting Providers: Sherri Boucher ; Damian Lux ; Lainey Ingrma Instructions Additional Instructions / Restrictions: ADDITIONAL INSTRUCTIONS: Please closely follow-up with your primary care physician and have repeat INR as well as hemoglobin assessment given need for continued chronic anticoagulation secondary to underlying mechanical valve. If your hemoglobin drops or you have any recurrent bleeding issues please immediately call Dr. Mendoza office. Incidental left adnexal cyst: CTA with a cystic left adnexal finding 49 x 41 mm, enlarged from prior, unclear significance. We encourage continued outpatient follow-up with your primary care to monitor and further assess. Discharge Orders/Prescriptions Prescriptions: New polyethylene glycol 3350 17 gram Powder In Packet 17 g PO BID 30 Days Qty: 100 1RF Rx Instructions: May hold for loose stools. pantoprazole [Protonix] 40 mg tablet,delayed release (DR/EC) 40 mg PO BID 30 Days Qty: 60 0RF amoxicillin-pot clavulanate 875-125 mg tablet 1 tab PO Q8H 6 Days Qty: 18 0RF Continued triamcinolone acetonide 0.1 % cream 1 applic TOPICAL .COMPLEX Label Comments: 1 applic TOPICAL as directed; Rx Instructions: 1 applic TOPICAL as directed; warfarin 2.5 mg tablet 2.5 mg PO DAILY Label Comments: managed by Rx Instructions: managed by Dr.Hannan Kent Pen 40 mg/0.8 mL pen injector kit See Rx Instructions .ROUTE .COMPLEX Rx Instructions: 40 mg subcutaneously, every 2 weeks clobetasol 0.05 % cream 1 applic topical DAILY PRN (Reason: PSORIASIS) flecainide 100 mg tablet 100 mg PO BID albuterol sulfate 90 mcg/actuation HFA aerosol inhaler 2 puff inhalation Q6H PRN (Reason: shortness of breath or wheezing) Qty: 6.7 0RF paroxetine HCl [Paxil] 20 mg tablet 10 mg PO DAILY simvastatin 40 mg tablet 40 mg PO QPM Qty: 90 3RF Discontinued atenolol 25 mg tablet 12.5 mg PO DAILY Qty: 45 3RF Other Ambulatory Orders: Cardiac Holter Monitor, 48 Hrs (Routine) Timeframe: 1 Day Facility: [facility] - Location: Cardiovascular Services Ordered By: Dr. Mary Marx Referrals / Follow Up: Sherri Boucher MD [Med Staff - Active Staff] - (Follow-up in 2 weeks, may see [employer]IST.) Tom Fox DO [Primary Care Provider] - (Follow-up in 2-3 days for close re-evaluation, repeat INR check and Hgb recheck.) Alfredo Mendoza DO [Med Staff - Active Staff] - (Follow-up at first open visit for re-evaluation constipation, recent endoscopy with ischemic colitis.) Disposition Disposition (needs filled in before D/C Order can be placed): Home, Self Care Charges/Coding Visit Charges Inpatient E&M: 00037 Disch Hosp >30min
== END 2022-12-13 13:28 | disposition home or self-care (01) | DRG 377 ==
LOC: ED 14:16 → PCU 15:54
PROVIDERS: Internal Medicine; Internal Medicine Gastroenterology; Admitting Provider Internal Medicine; Emergency Provider Student in an Organized Health Care Education/Training Program; PCP Family Medicine; Visit Provider Family Medicine
PROC: 0DJ08ZZ Inspection of Upper Intestinal Tract, Via Natural or Artificial Opening Endoscopic (ICD-10-PCS; CPT 43235; principal; 2022-12-11 14:55)
DX: K29.71 Gastritis, unspecified, with bleeding (principal); K55.039 Acute (reversible) ischemia of large intestine, extent unspecified; I50.31 Acute diastolic (congestive) heart failure; I48.3 Typical atrial flutter; D62 Acute posthemorrhagic anemia; I13.0 Hypertensive heart and chronic kidney disease with heart failure and stage 1 through stage 4 chronic kidney disease, or unspecified chronic kidney disease; I49.2 Junctional premature depolarization; K57.31 Diverticulosis of large intestine without perforation or abscess with bleeding; N18.32 Chronic kidney disease, stage 3b; I48.0 Paroxysmal atrial fibrillation; F32.A Depression, unspecified; J45.909 Unspecified asthma, uncomplicated; K22.2 Esophageal obstruction; I95.1 Orthostatic hypotension; E78.5 Hyperlipidemia, unspecified; F41.9 Anxiety disorder, unspecified; K21.9 Gastro-esophageal reflux disease without esophagitis; K59.09 Other constipation; I44.0 Atrioventricular block, first degree; K44.9 Diaphragmatic hernia without obstruction or gangrene; Z95.2 Presence of prosthetic heart valve; K29.81 Duodenitis with bleeding; Z79.01 Long term (current) use of anticoagulants; N83.8 Other noninflammatory disorders of ovary, fallopian tube and broad ligament; R09.02 Hypoxemia; Z95.3 Presence of xenogenic heart valve; Z79.899 Other long term (current) drug therapy; Z87.891 Personal history of nicotine dependence
CPT/HCPCS: 36415; 71045; 71250; 74174; 80048; 80053; 83735; 84145; 84443; 84484; 85014; 85018; 85025; 85610; 88305; 93005; 93306; 94640; 99285; J7030; J7120; Q9957; Q9967; J1940; J2405; J3490

== ENCOUNTER → 2022-12-13 | Outpatient (CLI) | payer MEDICARE, SELFPAY | END | disposition home or self-care (01) | LOC: CVS 13:02 | PROVIDERS: PCP Family Medicine; Referring Provider Family Medicine; Visit Provider Family Medicine | DX: R55 Syncope and collapse (principal) | CPT/HCPCS: 93225; 93226 ==

== ENCOUNTER → 2022-12-17 | Outpatient (CLI) | payer MEDICARE, SELFPAY ==
[2022-12-17 13:44] LABS: Absolute Lymphocyte Count 1.56 X10^3/uL (0.83-4.51); Absolute Neutrophil Count 3.8 X10^3/uL (2.0-7.7); Basophil# 0.03 X10^3/uL; Basophil% 0.4 % (0-1); Eosinophil# 0.28 X10^3/uL; Eosinophils% 4.2 % (0-5); Hematocrit 38.9 % (37-47); Hemoglobin 12.5 g/dL (12.0-15.0); Lymphocyte # 1.56 X10^3/ul (0.83-4.51); Lymphocyte % 23.4 % (19-41); Mean Corp Hgb Conc 32.1 g/dL (32-36); Mean Corpuscular Hgb 28.3 pg (27.0-32.0); Mean Platelet Vol. 9.2 fl (6.2-12.0); Monocyte# 0.98 X10^3/uL; Monocyte% 14.7 % (0-10); NRBC Flagged by Analyzer 0 % (0-5); Neutrophil # 3.79 X10^3/uL (2.7-7.7); Neutrophil % 56.7 % (47-70); Platelet Count 267 K/mm3 (150-450); RBC Distribution Width CV 13.4 % (11.6-14.6); RBC Distribution Width SD 43.8 fl (35.1-43.9); Red Blood Count 4.42 M/mm3 (4.2-5.4); White Blood Count 6.7 K/mm3 (4.4-11.0)
[2022-12-17 13:51] LABS: Prothrombin Time (Protime)PT. 22.6 SECONDS (11.7-14.9)
[2022-12-17 14:06] LABS: Vitamin B12 379 pg/mL (211-911)
[2022-12-17 14:14] LABS: Ferritin 166 ng/mL (8-252); Iron 35 ug/dL (50-170)
== END | disposition home or self-care (01) ==
LOC: BFHLAB 11:57
PROVIDERS: PCP Family Medicine; Referring Provider Family Medicine; Visit Provider Family Medicine
DX: D64.9 Anemia, unspecified (principal); Z79.01 Long term (current) use of anticoagulants
CPT/HCPCS: 36415; 82607; 82728; 83540; 85025; 85610

== ENCOUNTER 2023-01-04 10:34 | Emergency (ER) | payer MEDICARE, SELFPAY ==
[2023-01-04 10:35] VITALS: BP 167/74; PULSE 67; RESP 18; TEMP 35.8; O2SAT 90; BMI 25.3
--- NOTE | 2023-01-04 11:05 | EX.ED.DYSGE1 ---
HPI History of Present Illness Chief Complaint: Palpitations Narrative Narrative: 72-year-old female presents with her because of heart palpitations that she began feeling yesterday. She states that she has a history of an irregular heartbeat/A-fib for which she takes Coumadin. Her pest locator, Dr. Cordero, recently took her off flecainide because she states that she no longer needed that, and switched her to half a tablet of atenolol once a day. Yesterday, initially she stated that it was in the evening, but it was happening throughout the day that she was feeling an irregular heartbeat. Was not necessarily fast. She denies any chest pain or shortness of breath, no leg swelling, no other symptoms. She presents because of the irregular heartbeat that she experienced yesterday. [facility] Medical History Aortic stenosis with bicuspid valve Asthma Bleeding per rectum Constipation Depression GERD (gastroesophageal reflux disease) GI bleed History of transcatheter aortic valve replacement (TAVR) (02/24/18) Hyperlipidemia Left bundle-branch block Left low back pain Left wrist sprain correction current use of anticoagulant Lumbar strain Near syncope Nonrheumatic mitral valve insufficiency Nonrheumatic mitral valve prolapse Paroxysmal atrial fibrillation Peripheral vertigo, unspecified Psoriasis Refusal of blood transfusions as patient is Restorationism Typical atrial flutter Ventricular tachycardia Home Medications triamcinolone acetonide 0.1 % topical cream 1 applic topical .COMPLEX 04/30/18 [History Last Taken Unknown] warfarin 2.5 mg tablet 2.5 mg PO DAILY Mitral valve 11/18/18 [History Last Taken Unknown] paroxetine HCl 20 mg tablet (Paxil) 10 mg PO DAILY 05/11/19 [History Last Taken Unknown] adalimumab 40 mg/0.8 mL subcutaneous pen kit (Humira Pen) See Rx Instructions .Route .COMPLEX Check with primary doctor 03/07/21 [History Last Taken Unknown] clobetasol 0.05 % topical cream 1 applic topical DAILY PRN PSORIASIS 01/15/22 [History Last Taken Unknown] simvastatin 40 mg tablet 40 mg PO QPM #90 tabs 08/04/22 [Rx Last Taken Unknown] albuterol sulfate 90 mcg/actuation aerosol inhaler 2 puff inhalation Q6H PRN shortness of breath or wheezing #6.7 grams 09/13/22 [Rx Last Taken Unknown] polyethylene glycol 3350 17 gram oral powder packet 17 g PO BID 30 days #100 ea 12/13/22 [Rx Last Taken Unknown] atenolol 25 mg tablet 12.5 mg (1/2 x 25 mg) PO DAILY #45 tabs 12/26/22 [Rx Last Taken Unknown] flecainide 50 mg tablet 50 mg PO Q12H #1 TAB 01/02/23 [Rx Last Taken Unknown] Allergy/AdvReac Type Severity Reaction Status Date / Time azithromycin Allergy Mild Unknown Verified 12/26/22 13:47 [From Zithromax Z-Fermin] bupropion Allergy Mild Unknown Verified 12/26/22 13:47 [From Wellbutrin SR] cefdinir [From Omnicef] Allergy Mild NEEDS Verified 12/26/22 13:47 FOLLOW-UP chamomile flower Allergy Unknown unknown Verified 12/26/22 13:47 Sulfa (Sulfonamide Allergy Unknown Verified 12/26/22 13:47 Antibiotics) kiwi AdvReac Intermediate unknown Verified 12/26/22 13:47 nickel AdvReac Unknown unknown Verified 12/26/22 13:47 quinine AdvReac Unknown unknown Verified 12/26/22 13:47 adhesive AdvReac unknown Verified 12/26/22 13:47 Family History Father Cancer Mother Cancer Surgical History H/O fracture of wrist H/O hysterectomy with unilateral oophorectomy H/O mitral valve replacement with mechanical valve (10/01/95) Hammertoe of left foot History of cataract surgery History of left heart catheterization (2018) History of radiofrequency ablation procedure for cardiac arrhythmia (10/10/02) Retinal tear Social History Smoking Status: Former smoker alcohol intake: current alcohol intake frequency: holidays/special occasions only substance use type: does not use ROS ROS ED ROS Narrative Constitutional: No fever, no chills. HEENT: No sore throat. No neck pain. No loss of vision. No rhinorrhea. Cardiovascular: No chest pain. Positive palpitations. No pedal edema. Respiratory: No cough, no shortness of breath. Abdominal: No abdominal pain. No nausea. No vomiting. Genitourinary: No dysuria. No hematuria. Musculoskeletal: No myalgias. No arthralgias. Neurologic: No headaches. No dizziness. No lightheadedness. Skin: No rash. No change in color. Psychiatric: No depression. No anxiety. EXAM Physical Exam Narrative Exam Narrative: Afebrile. Vital signs noted. HEENT: Normocephalic. Atraumatic. PERRL, EOMI. Neck soft and supple. No point tenderness or step off. Cardiovascular: Regular rate and rhythm with intermittent bradycardia. No murmurs, rubs, or gallops appreciated. Respiratory: No tachypnea. Lungs clear to auscultation bilaterally. Gastrointestinal: Abdomen soft, nontender, with normoactive bowel sounds. No rebound or guarding. Neurological: Awake. Alert. Nonfocal, nonlateralizing. Skin: No rash. Normal color. No pallor. Musculoskeletal: No pedal edema. Full range of motion extremities. Const Vital Signs: 01/04/23 10:35 01/04/23 11:04 01/04/23 11:10 Temperature 96.5 F L Temperature Source Temporal Pulse Rate 67 Respiratory Rate 18 Respiratory Effort Normal Non-Labored Blood Pressure 167/74 H Blood Pressure Mean 105 Pulse Ox 90 Oxygen Delivery Method Room Air Room Air MDM MDM MDM Narrative Medical decision making narrative: On the monitor, she appears to be in normal sinus rhythm with bradycardia in the high 50s. Comprehensive work-up will be pursued. She was reassured that she is not in atrial fibrillation. I will check a CBC and a BMP along with 1 troponin as her palpitations were yesterday. Chest x-ray will also be obtained to rule out because of her atrial fibrillation episode. Currently, she is rate controlled. EKG will also be obtained. EKG interpreted by myself independently shows sinus bradycardia at 55 bpm without ectopy or acute ST changes. No STEMI. She is not having chest pain. Her CBC was obtained and reviewed and it shows a normal white count of 5.3, hemoglobin normal at 13.0, platelet count normal at 280. INR therapeutic at 2.8 given her use of Coumadin for her atrial fibrillation. Glucose on CMP is normal at 79 with a normal BUN of 17 and creatinine normal at 0.99. Sodium is normal at 138 potassium normal at 4.3. High-sensitivity troponin is 10. Given that she is in normal sinus rhythm albeit bradycardic, and she has a normal troponin, I feel she can be discharged to follow-up with her pest locator as an outpatient. I do not feel that she requires observation. I interpreted her chest x-ray as well and see no evidence of an acute process, I do not feel antibiotics are indicated. Return instructions to the emergency department were reviewed. Disposition is discharged home in stable condition. History & Record Review Discussion w/independent historian: Patient Additional record(s) reviewed:: Prior ED visit and Prior labs Lab Data Attestation: I reviewed the patient's lab results. Labs: Laboratory Results - last 24 hr 01/04/23 10:45 WBC 5.3 RBC 4.66 Hgb 13.0 Hct 41.5 MCV 89.1 MCH 27.9 MCHC 31.3 L RDW Std Deviation 44.0 H RDW Coeff of Teodora 13.6 Plt Count 280 MPV 9.3 Immature Gran % (Auto) 0.200 Neut % (Auto) 50.9 Lymph % (Auto) 31.6 [place] % (Auto) 12.9 H Eos % (Auto) 3.8 Baso % (Auto) 0.6 Absolute Neuts (auto) 2.7 Absolute Lymphs (auto) 1.67 Nucleated RBC % 0 PT 29.9 H INR 2.8 Sodium 138 Potassium 4.3 Chloride 107 Carbon Dioxide 27.0 Anion Gap 4 L BUN 17 Creatinine 0.99 Estim Creat Clear Calc 43.70 Est GFR (MDRD) Af Amer 71 Est GFR (MDRD) Non-Af 58 L BUN/Creatinine Ratio 17.2 Glucose 79 Calcium 9.5 Troponin I High Sens 10 Discharge Plan Triage Chief Complaint: Palpitations ED Provider: Johan Khan Dx/Rx/DC Orders Clinical Impression: Palpitations, Paroxysmal atrial fibrillation Instructions: ED AFIB, ED Palpitations Prescriptions: No Action triamcinolone acetonide 0.1 % cream 1 applic TOPICAL .COMPLEX Patient Comments: 1 applic TOPICAL as directed; Rx Instructions: 1 applic TOPICAL as directed; warfarin 2.5 mg tablet 2.5 mg PO DAILY Patient Comments: managed by Rx Instructions: managed by Dr.Hannan Kent Pen 40 mg/0.8 mL pen injector kit See Rx Instructions .ROUTE .COMPLEX Rx Instructions: 40 mg subcutaneously, every 2 weeks clobetasol 0.05 % cream 1 applic topical DAILY PRN (Reason: PSORIASIS) albuterol sulfate 90 mcg/actuation HFA aerosol inhaler 2 puff inhalation Q6H PRN (Reason: shortness of breath or wheezing) Qty: 6.7 0RF atenolol 25 mg tablet 12.5 mg PO DAILY Qty: 45 3RF polyethylene glycol 3350 17 gram Powder In Packet 17 g PO BID 30 Days Qty: 100 1RF Rx Instructions: May hold for loose stools. paroxetine HCl [Paxil] 20 mg tablet 10 mg PO DAILY simvastatin 40 mg tablet 40 mg PO QPM Qty: 90 3RF flecainide 50 mg tablet 50 mg PO Q12H Qty: 1 0RF Primary Care Provider: Tom Fox Referrals: Neo Cordero MD [Med Staff - Active Staff] - As soon as possible Tom Fox DO [Primary Care Provider] - As Needed Disposition Disposition: Home, Self Care
--- NOTE | 2023-01-04 11:10 | RAD_ITS ---
INDICATION: chest pain EXAMINATION/TECHNIQUE: X-RAY - XR Chest 1 View COMPARISON: Prior study dated: December 10, 2022 FINDINGS: LINES/DEVICES: None. LUNGS: There are ill-defined opacities within the lower lungs, right greater than left, that have progressed since the prior examination. No pneumothorax. MEDIASTINUM AND CARDIOVASCULAR STRUCTURES: There are sternotomy wires in place. There is cardiomegaly. There is an aortic valve in place. Central airways and mediastinal contour are unremarkable. BONES AND SOFT TISSUES: Unremarkable. RAD/Chest 1 View (Portable) IMPRESSION: Interval worsening of ill-defined opacities within the lower lungs may be secondary to some combination of edema, atelectasis and/or pneumonia. Cardiomegaly. Electronically Signed: Lynnette Rodriguez MD at 12:02 EDT ,
[2023-01-04 11:16] LABS: Absolute Lymphocyte Count 1.67 X10^3/uL (0.83-4.51); Absolute Neutrophil Count 2.7 X10^3/uL (2.0-7.7); Basophil# 0.03 X10^3/uL; Basophil% 0.6 % (0-1); Eosinophils% 3.8 % (0-5); Hematocrit 41.5 % (37-47); Lymphocyte # 1.67 X10^3/ul (0.83-4.51); Lymphocyte % 31.6 % (19-41); Mean Corp Hgb Conc 31.3 g/dL (32-36); Mean Corpuscular Hgb 27.9 pg (27.0-32.0); Mean Corpuscular Volume 89.1 fL (81-99); Mean Platelet Vol. 9.3 fl (6.2-12.0); Monocyte# 0.68 X10^3/uL; Monocyte% 12.9 % (0-10); NRBC Flagged by Analyzer 0 % (0-5); Neutrophil % 50.9 % (47-70); Platelet Count 280 K/mm3 (150-450); RBC Distribution Width CV 13.6 % (11.6-14.6); Red Blood Count 4.66 M/mm3 (4.2-5.4); White Blood Count 5.3 K/mm3 (4.4-11.0)
[2023-01-04 11:35] LABS: Anion Gap 4 (5-15); BUN 17 mg/dL (7-18); BUN/Creat Ratio 17.2 RATIO (10-20); Calcium,Total 9.5 mg/dL (8.5-10.1); Chloride 107 mmol/L (98-107); Creatinine, Serum 0.99 mg/dL (0.55-1.02); EST Glomerular Filtration Rate 58 mL/min (>60); Est Glom Filt Rate - Afr Amer 71 mL/min (>60); Glucose 79 mg/dL (74-106); Potassium 4.3 mmol/L (3.5-5.1); Sodium Level 138 mmol/L (136-145); Troponin-I HS 10 pg/mL (3.0-54.0)
[2023-01-04 11:37] LABS: International Normalized Ratio 2.8; Prothrombin Time (Protime)PT. 29.9 SECONDS (11.7-14.9)
[2023-01-04 12:34] VITALS: RESP 16
== END 2023-01-04 12:43 | disposition home or self-care (01) ==
PROVIDERS: Emergency Provider Emergency Medicine; PCP Family Medicine; Visit Provider Emergency Medicine
DX: R00.2 Palpitations (principal); I48.0 Paroxysmal atrial fibrillation; Z87.891 Personal history of nicotine dependence
CPT/HCPCS: 71045; 80048; 84484; 85025; 85610; 93005; 99284; A4216

== ENCOUNTER → 2023-01-09 | Outpatient (CLI) | payer MEDICARE, SELFPAY ==
--- NOTE | 2023-01-09 10:08 | RAD_ITS ---
STUDY: X-RAY CHEST REASON FOR EXAM: Female, 72 years old. Cough. TECHNIQUE: Frontal and lateral views of the chest. COMPARISON: Chest dated January 04, 2023. FINDINGS: Slight increased interstitial opacity in the right base since the prior study. Stable left lower lobe interstitial prominence. There is no demonstrated pleural abnormality. Cardiomegaly with sternotomy wires unchanged. Normal mediastinum and colin. Normal visualized pulmonary arteries. Stable aortic tortuosity. Normal visualized thoracic spine. Normal visualized ribs, clavicles, and shoulders. No abnormality of the visualized soft tissue structures of the upper abdomen. RAD/Chest PA and Lateral IMPRESSION: Cardiomegaly with slight increase in interstitial opacities at the right base. No change in interstitial prominence on the left. No acute or active cardiopulmonary disease. Electronically Signed: Jonas Shanks MD at 12:50 EDT ,
== END | disposition home or self-care (01) ==
LOC: MTRAD 10:06
PROVIDERS: PCP Family Medicine; Referring Provider Nurse Practitioner Family; Visit Provider Nurse Practitioner Family
DX: R05.9 Cough, unspecified (principal); Z87.01 Personal history of pneumonia (recurrent)
CPT/HCPCS: 71046

== ENCOUNTER → 2023-01-14 | Outpatient (CLI) | payer MEDICARE, SELFPAY | END | disposition home or self-care (01) | LOC: PSN 11:47 | PROVIDERS: PCP Family Medicine; Referring Provider Physician Assistant Medical; Visit Provider Physician Assistant Medical | DX: I10 Essential (primary) hypertension (principal); Z13.89 Encounter for screening for other disorder | CPT/HCPCS: 93225; 93226 ==

== ENCOUNTER → 2023-06-24 | Outpatient (CLI) | payer MEDICARE, SELFPAY ==
[2023-06-24 15:19] LABS: Absolute Lymphocyte Count 1.42 X10^3/uL (0.83-4.51); Absolute Neutrophil Count 4.2 X10^3/uL (2.0-7.7); Basophil# 0.03 X10^3/uL; Basophil% 0.4 % (0-1); Eosinophil# 0.28 X10^3/uL; Eosinophils% 4.1 % (0-5); Hematocrit 43.7 % (37-47); Hemoglobin 13.6 g/dL (12.0-15.0); Lymphocyte # 1.42 X10^3/ul (0.83-4.51); Lymphocyte % 20.6 % (19-41); Mean Corp Hgb Conc 31.1 g/dL (32-36); Mean Corpuscular Hgb 27.9 pg (27.0-32.0); Mean Corpuscular Volume 89.7 fL (81-99); Mean Platelet Vol. 9.4 fl (6.2-12.0); Monocyte# 0.97 X10^3/uL; Monocyte% 14.1 % (0-10); NRBC Flagged by Analyzer 0 % (0-5); Neutrophil # 4.16 X10^3/uL (2.7-7.7); Neutrophil % 60.5 % (47-70); Platelet Count 265 K/mm3 (150-450); RBC Distribution Width CV 14.7 % (11.6-14.6); RBC Distribution Width SD 48.1 fl (35.1-43.9); Red Blood Count 4.87 M/mm3 (4.2-5.4); White Blood Count 6.9 K/mm3 (4.4-11.0)
[2023-06-24 16:08] LABS: ALB/GLOB Ratio 0.8 RATIO (0.9-2.4); AST(SGOT) 17 U/L (15-37); Alanine Aminotransfer ALT/SGPT 14 U/L (13-56); Albumin, Serum 3.5 g/dL (3.2-5.0); Alkaline Phosphatase 87 U/L (45-117); Anion Gap 8 (5-15); BUN 15 mg/dL (7-18); BUN/Creat Ratio 16.7 RATIO (10-20); Chloride 104 mmol/L (98-107); EST Glomerular Filtration Rate 65 mL/min (>60); Est Glom Filt Rate - Afr Amer 79 mL/min (>60); Globulin 4.3 g/dL (2.2-4.2); Glucose 108 mg/dL (74-106); Potassium 4.2 mmol/L (3.5-5.1); Protein, Total 7.8 g/dL (6.4-8.2); Sodium Level 138 mmol/L (136-145)
== END | disposition home or self-care (01) ==
LOC: BFHLAB 11:16
PROVIDERS: PCP Family Medicine; Visit Provider Family Medicine
DX: R10.9 Unspecified abdominal pain (principal)
CPT/HCPCS: 36415; 80053; 85025; 86140

== ENCOUNTER 2023-06-26 11:49 | Emergency (ER) | payer MEDICARE, SELFPAY ==
[2023-06-26 11:51] VITALS: BP 95/65; PULSE 123; RESP 18; TEMP 36.7; O2SAT 92; BMI 25.1
[2023-06-26 12:49] VITALS: O2SAT 98
--- NOTE | 2023-06-26 12:49 | CT_ITS ---
STUDY: CT ABDOMEN AND PELVIS WITH CONTRAST REASON FOR EXAM: Female, 73 years old. LLQ abd pain RADIATION DOSAGE (If Supplied By Facility): CTDIvol = ( 14.76 ) mGy, DLP = ( 658.86 ) mGycm TECHNIQUE: Transaxial images were obtained from the dome of the diaphragm to the symphysis pubis without oral contrast. IV 100mL Isovue-[id number] was administered. Sagittal and coronal images were reconstructed. Individualized dose optimization techniques were used for this CT. COMPARISON: 12/10/2022 FINDINGS: There are chronic interstitial fibrotic changes of the lung bases. Aortic valve stent noted. Normal liver. Normal gallbladder and extrahepatic biliary system. Normal spleen. Normal pancreas. Normal bilateral adrenal glands. Normal right kidney. Normal left kidney. Normal visualized stomach. Multiple nondistended fluid-filled small bowel loops are noted consistent with ileus. Obtained stool noted in the colon with scattered colonic diverticula. There is abnormal thickening of the mid sigmoid colon with pericolonic inflammatory stranding consistent with a focal acute diverticulitis. No perforation or abscess is noted. There is non-visualization of the appendix. Normal abdominal aorta. Normal inferior vena cava. Normal retroperitoneum. Normal urinary bladder. There is a stable 5.1 x 4.3 cm cystic structure in the left hemipelvis likely ovarian in origin but it is unchanged compared to 6 months ago. Normal abdominal wall. There are diffuse degenerative changes of the visualized lumbar spine, and pelvis. CT/Abdomen/Pelvis W IV Cont ONLY IMPRESSION: Acute sigmoid diverticulitis without perforation or abscess Small bowel ileus No free intraperitoneal fluid, air, or suspicious adenopathy Stable 5.1 cm cystic structure within the left hemipelvis, likely ovarian in origin but unchanged from 6 months ago Electronically Signed: Darinel Hughes MD at 13:55 EST ,
[2023-06-26 12:50] VITALS: BP 125/84; PULSE 125; RESP 17; O2SAT 98
[2023-06-26 12:50] LABS: Absolute Lymphocyte Count 2.02 X10^3/uL (0.83-4.51); Basophil# 0.06 X10^3/uL; Basophil% 0.6 % (0-1); Eosinophils% 2.1 % (0-5); Hematocrit 48.9 % (37-47); Hemoglobin 15.4 g/dL (12.0-15.0); Lymphocyte # 2.02 X10^3/ul (0.83-4.51); Lymphocyte % 21.1 % (19-41); Mean Corp Hgb Conc 31.5 g/dL (32-36); Mean Corpuscular Hgb 27.5 pg (27.0-32.0); Mean Corpuscular Volume 87.5 fL (81-99); Mean Platelet Vol. 9.8 fl (6.2-12.0); Monocyte# 1.27 X10^3/uL; Monocyte% 13.3 % (0-10); NRBC Flagged by Analyzer 0 % (0-5); Neutrophil # 5.98 X10^3/uL (2.7-7.7); Neutrophil % 62.4 % (47-70); Platelet Count 314 K/mm3 (150-450); RBC Distribution Width CV 14.7 % (11.6-14.6); RBC Distribution Width SD 47.1 fl (35.1-43.9); Red Blood Count 5.59 M/mm3 (4.2-5.4); White Blood Count 9.6 K/mm3 (4.4-11.0)
--- NOTE | 2023-06-26 12:51 | ED.VIS.CHEST ---
HPI History of Present Illness Chief Complaint: Palpitations Detail of Chief Complaint: Left lower quadrant abdominal pain with diarrhea and generalized weakness. Informant: patient Onset/Context/Timing Onset: Days Activity at onset: gradual Timing: Continuous Quality: Positive for Aching Current Severity: Mild Maximum Severity: Mild Narrative Narrative: 73-year-old female history of A-fib on Coumadin. But primarily complaining left lower quadrant abdominal pain last several days with diarrhea and generalized weakness. Brought in by squad there EKG showed A-fib RVR. Denies chest pain. Feels generally weak. No fever. Prior hysterectomy without oophorectomy. Prior Similar Symptoms: Yes Recent Illness/Hospitalization: No CVD Risk Factors: Negative for Hypertension, Diabetes or Hypercholesterolemia PE Risk Factors: Negative for Recent Travel/Surgery, Recent Immobilization, Prior DVT or PE, Cancer or OCP + Smoking + >/=35 TAD Risk Factors: Negative for Marfan's Syndrome [facility] Medical History Aortic stenosis with bicuspid valve Asthma Bleeding per rectum Constipation Depression GERD (gastroesophageal reflux disease) GI bleed History of transcatheter aortic valve replacement (TAVR) (02/24/18) Hyperlipidemia Left bundle-branch block Left low back pain 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8 mL subcutaneous pen kit (Humira Pen) See Rx Instructions .Route .COMPLEX Check with primary doctor 03/07/21 [History Last Taken Unknown] clobetasol 0.05 % topical cream 1 applic topical DAILY PRN PSORIASIS 01/15/22 [History Last Taken Unknown] polyethylene glycol 3350 17 gram oral powder packet 17 g PO BID 30 days #100 ea 12/13/22 [Rx Last Taken Unknown] atenolol 25 mg tablet 12.5 mg (1/2 x 25 mg) PO DAILY #45 tabs 12/26/22 [Rx Last Taken Unknown] flecainide 50 mg tablet 50 mg PO Q12H #180 tabs 01/05/23 [Rx Last Taken Unknown] Allergy/AdvReac Type Severity Reaction Status Date / Time azithromycin Allergy Mild Unknown Verified 12/26/22 13:47 [From Zithromax Z-Fermin] bupropion Allergy Mild Unknown Verified 12/26/22 13:47 [From Wellbutrin SR] cefdinir [From Omnicef] Allergy Mild NEEDS Verified 12/26/22 13:47 FOLLOW-UP chamomile flower Allergy Unknown unknown Verified 12/26/22 13:47 Sulfa (Sulfonamide Allergy Unknown Verified 12/26/22 13:47 Antibiotics) kiwi AdvReac Intermediate unknown Verified 12/26/22 13:47 nickel AdvReac Unknown unknown Verified 12/26/22 13:47 quinine AdvReac Unknown unknown Verified 12/26/22 13:47 adhesive AdvReac unknown Verified 12/26/22 13:47 Family History Father Cancer Mother Cancer Surgical History H/O fracture of wrist H/O hysterectomy with unilateral oophorectomy H/O mitral valve replacement with mechanical valve (10/01/95) Hammertoe of left foot History of cataract surgery History of left heart catheterization (2017) History of radiofrequency ablation procedure for cardiac arrhythmia (10/10/02) Retinal tear Social History Smoking Status: Former smoker alcohol intake: current alcohol intake frequency: holidays/special occasions only substance use type: does not use ROS ROS ED ROS Narrative Left lower quadrant abdominal pain. Diarrhea. Accelerated heart rate. Weakness. Review of Systems ROS Unobtainable: Denies due to encephalopathy Constitutional Constitutional ED: Denies chills or fever(s) Eyes Eyes: Reports none ENT ENT ED: Denies ear pain or rhinorrhea Cardiovascular Cardiovascular: Reports as per HPI, palpitations and racing heartbeat; Denies chest pain Respiratory/Chest Respiratory/Chest: Reports dyspnea; Denies cough Gastrointestinal Gastrointestinal: Reports abdominal pain and diarrhea; Denies constipation, melena, nausea or vomiting Genitourinary Genitourinary ED: Denies dysuria or hematuria Musculoskeletal Musculoskeletal: Denies arthralgias or back pain Integumentary Denies abscess or Abrasions Neurologic Neurologic: Denies headache(s) Psychiatric Psychiatric: Denies anxiety or depression Endocrine Endocrinology: Denies cold intolerance Hematologic/Lymphatic Hematologic/Lymphatic: Denies easy bleeding, easy bruising or lymphadenopathy Allergic/Immunologic Allergic/Immunologic ED: Denies mouth swelling, tongue swelling or urticaria EXAM Physical Exam Narrative Exam Narrative: 73-year-old female initial vital signs send blood pressure 95/65 1 in the room she is 125/84. Heart rate is A-fib RVR to monitor about 125. She is currently sitting upright in bed. H EENT exam unremarkable. Moist mucous membranes. Neck nontender no JVD. Lungs clear to auscultation bilaterally. Heart irregular irregular rate about 125 no murmur. Chest wall and ribs nontender. Abdomen soft nondistended normal bowel sounds without peritoneal signs. Tender only in the left lower quadrant. No hernia or mass. No pulsatile mass. Both the right upper and right lower quadrants are unremarkable. No distention or obstruction. Moving all 4 extremities. Nontender no edema. Neurologically she is awake and alert with no focal motor deficits. Const Vital Signs: 06/26/23 11:51 06/26/23 11:51 06/26/23 12:49 Temperature 98.1 F Temperature Source Temporal Pulse Rate 123 H Respiratory Rate 18 Respiratory Effort Short of Breath Blood Pressure 95/65 Blood Pressure Mean 75 Pulse Ox 92 98 Oxygen Delivery Method Room Air Room Air 06/26/23 12:50 06/26/23 13:15 06/26/23 14:00 Temperature Temperature Source Pulse Rate 125 H 74 71 Respiratory Rate 17 16 16 Respiratory Effort Blood Pressure 125/84 H 107/56 L 96/57 L Blood Pressure Mean 97 73 70 Pulse Ox 98 95 91 Oxygen Delivery Method Room Air Room Air Room Air Positive well nourished and well developed; Negative for obese, cachectic, contractures or unkempt General Appearance ED: well developed; Negative for unkempt, cachectic, contractures or pallor Nutritional Appearance: Negative for cachectic or obese HEENT Reports moist mucous membranes; Denies dry mucous membranes normocephalic and atraumatic; Negative for trauma or tenderness Mouth ED: No dry mucous membranes Mouth: No dry mucous membranes Eyes PERRL and EOMs intact bilaterally General Eye ED: Negative for pale conjunctiva or scleral icterus Neck no lymphadenopathy, supple and no JVD General: Negative for tenderness Chest Wall inspection of chest normal and palpation of chest normal Chest: Negative for tenderness Resp normal respiratory effort and clear to auscultation bilaterally Effort and Inspection: Negative for respiratory distress Auscultation: Negative for rales, rhonchi or wheezes Cardio no murmurs; Negative for regular rate or regular rhythm Rhythm: abnormal rhythm irregularly irregular Peripheral Pulses: pulses 2+ throughout GI normal to inspection, nondistended, normoactive bowel sounds, soft to palpation, non-distended and no masses; Negative for non-tender GI Narrative: Tender left lower quadrant only. No peritoneal signs. No mass. No pulsatile mass. Palpation: Negative for mass Back/Spine no CVA tenderness and no thoracic nor lumbar tenderness General Back: Negative for CVA tenderness Cervical Spine: Negative for cervical spine tenderness Extremity normal to inspection General Extremety ED: Negative for edema, pulses abnormal or tenderness General Extremity: Negative for edema or pulses abnormal Neuro oriented x3 and CN's II-XII intact bilaterally Sensorium / Orientation: awake, alert, oriented to person, oriented to place and oriented to time; Negative for confused, lethargic or stuporous Motor Exam: strength 5/5 throughout Psych mental status grossly normal Appearance: Negative for unkempt Attitude: No agitated Mood & Affect: Negative for depressed, anxious or tearful Skin no rashes or lesions noted and no wounds General Skin Exam: Negative for jaundice or pallor Rashes: No rashes noted Trauma: Negative for abrasion or laceration MDM MDM MDM Narrative Medical decision making narrative: 73-year-old female history of A-fib currently she is in A-fib RVR. Initially was hypotensive that is resolved. She is also complaining of several day history of diarrhea left lower quadrant abdominal pain consider diverticulitis. Cardiac workup with a CAT scan labs. IV Cardizem for A-fib RVR. IV fluids were transient hypotension. Repeat exam patient is doing well at 3:20 PM. A-fib is controlled in the 80s. Blood pressure is 110/62. I went over all the test results with the patient. She saw her primary care physician the other day who started her on both Cipro and Flagyl for diverticulitis. She is comfortable and wants to be discharged home. She will follow-up with her primary care physician next week to ensure she is improving. She has antibiotic prescriptions with her. I also instructed her to make sure she is taking her Coumadin which she states she has been because of subtherapeutic at 1.2. History & Record Review Discussion w/independent historian: Patient Additional record(s) reviewed:: Prior inpatient record, Prior outpatient record, Prior ED visit and Prior labs Lab Data Attestation: I reviewed the patient's lab results. Lab results narrative: CBC shows a white count of 9. H&H of 15 and 48. Platelets 314. PT/INR 14 and 1.2. The patient is on Coumadin but subtherapeutic With an INR of 1.2. Chemistries show a gap of 6. BUN and creatinine 25 and 1.1. Glucose 98. Troponin is normal at 27. Labs: Laboratory Results - last 24 hr 06/26/23 12:06 WBC 9.6 RBC 5.59 H Hgb 15.4 H Hct 48.9 H MCV 87.5 MCH 27.5 MCHC 31.5 L RDW Std Deviation 47.1 H RDW Coeff of Teodora 14.7 H Plt Count 314 MPV 9.8 Immature Gran % (Auto) 0.500 Neut % (Auto) 62.4 Lymph % (Auto) 21.1 Ada % (Auto) 13.3 H Eos % (Auto) 2.1 Baso % (Auto) 0.6 Absolute Neuts (auto) 6.0 Absolute Lymphs (auto) 2.02 Nucleated RBC % 0 PT 14.9 INR 1.2 Sodium 136 Potassium 4.1 Chloride 105 Carbon Dioxide 25.0 Anion Gap 6 BUN 25 H Creatinine 1.14 H Estim Creat Clear Calc 37.39 Est GFR (MDRD) Af Amer 60 Est GFR (MDRD) Non-Af 50 L BUN/Creatinine Ratio 21.9 H Glucose 98 Calcium 10.0 Troponin I High Sens 27 Radiography Chest X-Ray - ED: 1 View, Read by ED Physician, Read by Radiologist, Heart, Lungs, Mediastinum, Bony Structures, No Acute Disease and Chronic Changes Diagnostic Testing: Clinical Impression(s) from Imaging Studies Abdomen/Pelvis CT 06/26/23 12:49 IMPRESSION: Acute sigmoid diverticulitis without perforation or abscess Small bowel ileus No free intraperitoneal fluid, air, or suspicious adenopathy Stable 5.1 cm cystic structure within the left hemipelvis, likely ovarian in origin but unchanged from 6 months ago Electronically Signed: Darinel Hughes MD at 13:55 EST , Chest X-Ray 06/26/23 13:35 IMPRESSION: Cardiomegaly with hyperlucency in both apices and slight increase in interstitial prominence in both bases compatible with mild interval increase in pulmonary fibrosis. No acute abnormality. Electronically Signed: Jonas Shanks MD at 13:49 EST , Chest x-ray, single view, interpreted both by myself and the radiologist shows chronic interstitial changes consistent pulmonary fibrosis. No acute abnormality. Normal cardiac silhouette. Rhythm Strip Rhythm Strip: A-fib Rate: 123 Ectopy: None EKG Initial EKG: Attestation: I personally reviewed and interpreted this EKG as follows: Interpretation: Atrial Fibrillation Comments: Atrial fibrillation with rapid ventricular rate of 123. Discharge Plan Triage Chief Complaint: Palpitations ED Provider: Eduardo Ku Dx/Rx/DC Orders Clinical Impression: Chronic anticoagulation, Acute diverticulitis, Atrial fibrillation with rapid ventricular response Instructions: ED AFIB, ED Diverticulitis Prescriptions: No Action triamcinolone acetonide 0.1 % cream 1 applic TOPICAL .COMPLEX Patient Comments: 1 applic TOPICAL as directed; Rx Instructions: 1 applic TOPICAL as directed; warfarin 2.5 mg tablet 2.5 mg PO DAILY Patient Comments: managed by Rx Instructions: managed by Dr.Hannan Knet Pen 40 mg/0.8 mL pen injector kit See Rx Instructions .ROUTE .COMPLEX Rx Instructions: 40 mg subcutaneously, every 2 weeks clobetasol 0.05 % cream 1 applic topical DAILY PRN (Reason: PSORIASIS) atenolol 25 mg tablet 12.5 mg PO DAILY Qty: 45 3RF flecainide 50 mg tablet 50 mg PO Q12H Qty: 180 3RF polyethylene glycol 3350 17 gram Powder In Packet 17 g PO BID 30 Days Qty: 100 1RF Rx Instructions: May hold for loose stools. paroxetine HCl [Paxil] 20 mg tablet 10 mg PO DAILY Primary Care Provider: Tom Fox Referrals: Tom Fox, [Primary Care Provider] - 3-5 Days Activity Restrictions/Additional Instructions: Make sure you are taking your regular medications for your heart rate, A-fib and your Coumadin. Your Coumadin level was low today at 1.2. Make sure you take and finish both antibiotics the Cipro 1 pill twice a day and the metronidazole 3 times a day that your primary care physician started you on yesterday. Follow-up with your primary care physician next week to ensure you are improving. Sometimes you have to be on antibiotics longer than 1 week. Plenty of fluids and rest. Disposition Disposition: Home, Self Care
[2023-06-26] MEDS: dilTIAZem 25 MG/5 ML Vial IV BOLUS (12:55)
[2023-06-26 13:08] LABS: Anion Gap 6 (5-15); BUN 25 mg/dL (7-18); BUN/Creat Ratio 21.9 RATIO (10-20); Chloride 105 mmol/L (98-107); Creatinine, Serum 1.14 mg/dL (0.55-1.02); EST Glomerular Filtration Rate 50 mL/min (>60); Est Glom Filt Rate - Afr Amer 60 mL/min (>60); Estimated Creatinine Clearance 37.39 ml/min; Glucose 98 mg/dL (74-106); International Normalized Ratio 1.2; Potassium 4.1 mmol/L (3.5-5.1); Prothrombin Time (Protime)PT. 14.9 SECONDS (11.7-14.9); Sodium Level 136 mmol/L (136-145); Troponin-I HS 27 pg/mL (3.0-54.0)
[2023-06-26 13:15] VITALS: BP 107/56; PULSE 74; RESP 16; O2SAT 95
--- NOTE | 2023-06-26 13:35 | RAD_ITS ---
STUDY: X-RAY CHEST REASON FOR EXAM: Female, 73 years old. Chest pain. TECHNIQUE: Single frontal view of the chest. COMPARISON: January 09, 2023 FINDINGS: Low volume to the lung brock with hyperinflation in the apices. Slight increase in the interstitial prominence in both bases since the prior study. Findings most compatible with progression of interstitial fibrosis. There is no demonstrated pleural abnormality. Stable cardiomegaly with sternotomy wires. Normal mediastinum and colin. Normal visualized pulmonary arteries. Aortic tortuosity unchanged. Normal visualized thoracic spine. Normal visualized ribs, clavicles, and shoulders. There is no demonstrated abnormality of the visualized soft tissue structures of the upper abdomen. RAD/Chest 1 View (Portable) IMPRESSION: Cardiomegaly with hyperlucency in both apices and slight increase in interstitial prominence in both bases compatible with mild interval increase in pulmonary fibrosis. No acute abnormality. Electronically Signed: Jonas Shanks MD at 13:49 EST ,
[2023-06-26] MEDS: 0.9% Normal Saline (500mL Bag) 500 ML 999 ML IV (13:44)
--- OUTSIDE RECORDS SUMMARY | 2023-06-26 13:48 | XMS RPT_ITS | CCD ---
Author Name Unknown Address [email or web address] [place] [address] Organization [facility] Care Team Providers Care Post Secondary Professional Name Role Phone Hernandez, Michelle Unavailable Unavailable Hernandez, Michelle Unavailable Unavailable Hernandez, Michelle Unavailable Unavailable Quinn, Dominga Y Unavailable Unavailable JOSE Awan, Elisha Brody Unavailable DERIC Canela, Mis Brody Unavailable Unavailabl e Quinn, Dominga Y Unavailable Unavailable Margaret LEOS, Stacie Childs Unavailable Unavailable PROVIDER, UNKNOWN Unavailable Unavailable Stefania, Kishan Unavailable Unavailable KAVIN MAIN Unavailable Unavailable Brooke Ngo . Unavailable Unavailable PROVIDER, UNKNOWN Unavailable Unavailable Stefania, Kishan Unavailable Unavailable Neville Witt Unavailable Unavailable PROVIDER, UNKNOWN Unavailable Unavailable Stefania, Kishan Unavailable Unavailable ELISHA YUEN Unavailable Unavailable PROVIDER, UNKNOWN Unavailable Unavailable Stefania, Kishan Unavailable Unavailable Tereso Fraser Unavailable Unavailable PROVIDER, UNKNOWN Unavailable Unavailable Stefania, Kishan Unavailable Unavailable Neville Witt Unavailable Unavailable PROVIDER, UNKNOWN Unavailable Unavailable Stefania, Kishan Unavailable Unavailable ELISHA YUEN Unavailable Unavailable PROVIDER, UNKNOWN Unavailable Unavailable Stefania, Kishan Unavailable Unavailable ELISHA YUEN Unavailable Unavailable PROVIDER, UNKNOWN Unavailable Unavailable Stefania, Kishan Unavailable Unavailable Stefania Kishan A Primary Care Provider [phone] Allergies Allergy Classification Reported Allergen(s) Allergy Type Date of Onset Reaction(s) Facility (8 sources) Adhesive Tape drug allergy 6 blisters [facility] Work Phone: [phone] (8 sources) buPROPion drug allergy 6 dizziness [facility] Work Phone: [phone] (8 sources) cefdinir drug allergy 6 [facility] Work Phone: [phone] (9 sources) nickel drug allergy 5 Rash [facility] Work Phone: (9 sources) quiNINE drug allergy 6 Rash [facility] Work Phone: [phone] (8 sources) Sulfonamides (Antibiotic) drug allergy 0 [facility] Work Phone: [phone] (4 sources) CAMAMILE drug allergy 7 throat wells up [facility] Work Phone: [phone] (8 sources) KIWI drug allergy 6 throat swelling [facility] Work Phone: [phone] (8 sources) ZTHROMAX drug allergy 6 [facility] Work Phone: [phone] (1 source) Adhesive Tape Propensity to adverse reactions to drug 8 [facility] Work Phone: [phone] (1 source) Azithromycin Drug Allergy 8 [facility] Work Phone: [phone] (1 source) buPROPion Drug Allergy 8 [facility] Work Phone: [phone] (1 source) cefdinir Drug Allergy 8 [facility] Work Phone: [phone] (1 source) kiwi fruit allergenic extract Drug Allergy 9 [facility] Work Phone: [phone] (1 source) Seasonal allergy Propensity to adverse reactions to substance 0 [facility] Work Phone: [phone] (1 source) Sulfonamides (Antibiotic) Propensity to adverse reactions to drug 6 [facility] Work Phone: Medications Current Medications Medication Drug Class(es) Dates Sig (Normalized) Sig (Original) B Complex Vitamins (VITAMIN B COMPLEX PO) (1 source) Start: 02-20-2010 B Complex Vitamins (VITAMIN B COMPLEX PO) Take by mouth 0 02/20/2010 Active Bisacodyl (1 source) Stimulant Laxative BISACODYL CO Take by mouth 0 Active coenzyme q10 100 mg oral capsule (1 source) Start: 04-13-2013 take 10 capsules by mouth once coenzyme Q10 100 MG CAPS capsule Take 100 mg by mouth 0 04/13/2013 Active flecainide acetate 150 mg oral tablet (17 sources) Antiarrhythmic Start: 05-06-2016 take 1 tablet by mouth twice daily flecainide (TAMBOCOR) 150 MG tablet TAKE ONE TABLET BY MOUTH TWICE DAILY 3 06/09/2017 Active 1 ml ixekizumab 80 mg/ml prefilled syringe (1 source) Interleukin-17A Antagonist Ixekizumab (TALTZ) 80 MG/ML SOSY Inject 2 Cartridges into the skin every 14 days 0 Active PARoxetine hydrochloride 10 mg oral tablet (9 sources) Serotonin Reuptake Inhibitor take 1 tablet by mouth once daily in the morning PARoxetine (PAXIL) 10 MG tablet Take 10 mg by mouth every morning 0 Active Completed/Discontinued Medications Medication Drug Class(es) Dates Sig (Normalized) Sig (Original) acetaminophen / HYDROcodone (16 sources) Opioid Agonist Start: 12-13-2009 take 1 tablet by mouth twice daily as needed VICODIN 5-500 MG TABS One tablet by mouth twice daily as needed. HYDROCODONE-ACETAM INOPHEN [id number] Salomon Perez MD Problems Active Problems Problem Classification Problem Date Documented Da te Episodic/Chronic Asthma (2 sources) Unspecified asthma, uncomplicated; Translations: [Unspecified asthma, uncomplicated] Onset: 02-24-2018 Chronic Cardiac and circulatory congenital anomalies (10 sources) Bicuspid aortic valve; Translations: [Congenital insufficiency of aortic valve] Onset: 04-30-2016 04-30-2016 Chronic Cardiac dysrhythmias (20 sources) Sinus bradycardia; Translations: [Ventricular tachycardia] Onset: 04-30-2016 04-30-2016 Chronic Cardiac dysrhythmias (10 sources) Palpitations; Translations: [Palpitations] Onset: 04-30-2016 04-30-2016 Episodic Chronic obstructive pulmonary disease and bronchiectasis (2 sources) Chronic obstructive pulmonary disease, unspecified; Translations: [Chronic obstructive pulmonary disease, unspecified] Onset: 01-28-2018 Chronic Conduction disorders (8 sources) Left bundle branch block; Translations: [Left bundle-branch block, unspecified] Onset: 04-30-2016 04-30-2016 Chronic Congestive heart failure; nonhypertensive (2 sources) Chronic diastolic (congestive) heart failure; Translations: [Chronic diastolic (congestive) heart failure] Onset: 02-02-2018 Chronic Disorders of lipid metabolism (8 sources) Hyperlipidemia; Translations: [Hyperlipidemia, unspecified] Onset: 04-30-2016 04-30-2016 Chronic Diverticulosis and diverticulitis (3 sources) Diverticulosis of large intestine without perforation or abscess without bleeding; Translations: [Diverticulosis of large intestine without diverticulitis] Onset: 02-02-2018 10-01-2017 Chronic Esophageal disorders (3 sources) Gastro-esophageal reflux disease without esophagitis; Translations: [Gastroesophageal reflux disease without esophagitis] Onset: 06-25-2017 06-25-2017 Chronic Essential hypertension (8 sources) Hypertensive disorder; Translations: [Essential (primary) hypertension] Onset: 04-30-2016 04-30-2016 Chronic Heart valve disorders (20 sources) Nonrheumatic tricuspid (valve) insufficiency; Translations: [Nonrheumatic aortic (valve) stenosis] Onset: 10-01-1995 05-06-2016 Chronic Hemorrhoids (2 sources) First degree hemorrhoids; Translations: [First degree hemorrhoids] Onset: 04-07-2018 Episodic Hemorrhoids (1 source) Internal hemorrhoids grade I; Translations: [First degree hemorrhoids] 10-01-2017 Immunizations and screening for infectious disease (2 sources) Encounter for immunization; Translations: [Encounter for immunization] Onset: 02-24-2018 Episodic Malaise and fatigue (2 sources) Other fatigue; Translations: [Other fatigue] Onset: 02-02-2018 Episodic Other aftercare (2 sources) skilled nursing (current) use of anticoagulants; Translations: [skilled nursing (current) use of anticoagulants] Onset: 02-24-2018 Episodic Other aftercare (1 source) Long-term current use of anticoagulant; 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] 01-24-2018 Episodic Other inflammatory condition of skin (16 sources) Psoriasis with arthropathy; Translations: [Pustular psoriasis] Onset: 09-19-2009 10-23-2009 Chronic Other lower respiratory disease (2 sources) Shortness of breath; Translations: [Shortness of breath] Onset: 01-28-2018 Episodic Other upper respiratory disease (8 sources) Chronic rhinitis; Translations: [Chronic rhinitis] Onset: 07-27-2009 07-27-2009 Chronic Other upper respiratory disease (2 sources) Other seasonal allergic rhinitis; Translations: [Other seasonal allergic rhinitis] Onset: 10-01-2017 Chronic Other upper respiratory infections (8 sources) Chronic maxillary sinusitis; Translations: [Chronic maxillary sinusitis] Onset: 07-29-2010 07-29-2010 Chronic Pulmonary heart disease (16 sources) Pulmonary hypertension; Translations: [Other secondary pulmonary hypertension] Onset: 04-30-2016 04-30-2016 Chronic Screening or history of mental health and substance abuse (2 sources) Personal history of nicotine dependence; Translations: [Personal history of nicotine dependence] Onset: 02-24-2018 Episodic Thyroid disorders (2 sources) Nontoxic single thyroid nodule; Translations: [Nontoxic single thyroid nodule] Onset: 02-02-2018 Chronic Unclassified (4 sources) Other specified health status; Translations: [Acquired absence of both cervix and uterus] Onset: 10-01-2017 Episodic Unclassified (8 sources) Replacement of mitral valve ; Translations: [Presence of prosthetic heart valve] Onset: 04-30-2016 04-30-2016 Unclassified (8 sources) Radiofrequency ablation operation for arrhythmia ; Translations: [Other specified postprocedural states] Onset: 05-06-2016 05-06-2016 Past or Other Problems Problem Classification Problem Date Documented Da te Episodic/Chronic Allergic reactions (20 sources) Eczema; Translations: [Allergy status to sulfonamides status] Onset: 9 Resolved: 0 09-19-2009 Episodic Fracture of upper limb (8 sources) Fracture of distal end of radius; Translations: [Unspecified fracture of the lower end of unspecified radius] Onset: 5 07-05-2014 Episodic Gastritis and duodenitis (8 sources) Gastritis; Translations: [Gastritis, unspecified, without bleeding] Onset: 0 Resolved: 0 07-09-2009 Episodic Gastrointestinal hemorrhage (6 sources) Gastrointestinal hemorrhage, unspecified; Translations: [Melena] Onset: 8 Resolved: 8 10-06-2017 Episodic Gastrointestinal hemorrhage (1 source) Blood-tinged feces; Translations: [Hematochezia] Resolved: 8 10-06-2017 Inflammation, infection of eye (16 sources) Cellulitis of periorbital region; Translations: [Cellulitis of unspecified orbit] Onset: 0 Resolved: 0 12-13-2009 Episodic Other aftercare (16 sources) Long-term (current) use of other medications; Translations: [Other 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) drug therapy] Onset: 0 01-10-2010 Episodic Other gastrointestinal disorders (8 sources) Constipation; Translations: [Constipation] Onset: 0 Resolved: 0 07-09-2009 Episodic Other nutritional; endocrine; and metabolic disorders (8 sources) Body mass index (BMI) 27.0-27.9, adult; Translations: [Body mass index (BMI) 27.0-27.9, adult] Onset: 6 05-06-2016 Episodic Other upper respiratory disease (8 sources) Nasal polyp; Translations: [Polyp of nasal cavity] Onset: 0 07-27-2009 Episodic Other upper respiratory infections (20 sources) Acute sinusitis; Translations: [Acute pharyngitis] Onset: 9 Resolved: 0 10-23-2009 Episodic Skin and subcutaneous tissue infections (16 sources) Cellulitis of lower limb; Translations: [Cellulitis of right lower limb] Onset: 0 Resolved: 0 10-23-2009 Episodic Results Test Name Value Interpretation Reference Range Facil ity Vital Signs Date Time Vital Sign Value Performing Clinician Kelli flores 01-15-2017 15:36-0400 BMI (Body Mass Index) 27.71 kg/m2 [facility] Work Phone: 01-15-2017 15:36-0400 BP Diastolic 68 mm[Hg] [facility] Work Phone: 01-15-2017 15:36-0400 BP Systolic 102 mm[Hg] Michelle [facility] Work Phone: 01-15-2017 15:36-0400 Pulse (Heart Rate) 60 /min Michelle [facility] Work Phone: 01-15-2017 15:36-0400 Weight 74.39 kg Michelle [facility]rera[facility] Work Phone: 05-06-2016 12:48-0500 BMI (Body Mass Index) 27.21 kg/m2 [facility] Work Phone: 05-06-2016 12:48-0500 BP Diastolic 70 mm[Hg] [facility]ER[facility] Work Phone: 05-06-2016 12:48-0500 BP Systolic 144 mm[Hg] [facility] Work Phone: 05-06-2016 12:48-0500 BSA (Body Surface Area) 1.8 m2 [facility] Work Phone: 05-06-2016 12:48-0500 Height 163.83 cm [facility] Work Phone: 05-06-2016 12:48-0500 Pulse (Heart Rate) 64 /min [facility] Work Phone: 05-06-2016 12:48-0500 Respiratory Rate 18 /min [facility] Work Phone: 05-06-2016 12:48-0500 Weight 73.03 kg DERIC [facility] Work Phone: 07-29-2010 14:09-0500 Body Temperature 97.9 [degF] [facility] Work Phone: 07-03-2009 11:25-0500 Height 163.83 cm DERIC [facility] Work Phone: 07-03-2009 11:25-0500 Weight 78.81 kg Michelle Hernandez [facility] Work Phone: Encounters Encounter Date Encounter Type Care Provider Facility Start: 08-14-2020 End: 08-14-2020 Subsequent hospital visit by physician Kishan Aguiar Work Phone: [facility] Procedures Date Procedure Procedure Detail Performing Clinician Start: 08-14-2020 Us transvaginal Kishan Aguiar Work Phone: Start: 08-14-2020 Us soft tissue head & neck real time imge docm Kishan Aguiar Work Phone: Start: 06-29-2017 End: 06-29-2017 Lipid panel [AGGREGATE] Elisha ya PA-C Work Phone: Start: 01-15-2017 End: 01-15-2017 MT Franz POWER [employer]LE OPER[employer] Work Phone: Start: 01-15-2017 End: 01-15-2017 Follow Up Appt 6 months Dennis Ra Osei POWER MULE OPERATOR Work Phone: Start: 12-24-2016 End: 12-24-2016 *Hepatic Function Panel Billy Murray MD Work Phone: Start: 12-24-2016 End: 12-24-2016 Lipid panel [AGGREGATE] Billy Murray MD Work Phone: Start: 06-30-2016 End: 06-30-2016 *Hepatic Function Panel Billy Murray MD Work Phone: Start: 06-30-2016 End: 06-30-2016 Lipid panel [AGGREGATE] Billy Murray MD Work Phone: Start: 05-06-2016 End: 05-08-2016 *Hepatic Function Panel Billy Murray MD Work Phone: Start: 05-06-2016 End: 05-06-2016 JAYDENN Billy Murray MD Work Phone: Start: 05-06-2016 End: 05-06-2016 Electrocardiogram, complete Billy fish MD Work Phone: Start: 05-06-2016 End: 05-06-2016 Follow Up Appt 1 month Billy Murray MD Work Phone: Start: 05-06-2016 End: 05-08-2016 Lipid panel [AGGREGATE] Billy Murray MD Work Phone: Start: 05-06-2016 End: 05-14-2016 Stress Echocardiogram (treadmill) Billy Murray MD Work Phone: Start: 05-06-2016 End: 05-09-2016 Thyroid stimulating hormone (TSH) Billy Murray MD Work Phone: Start: 05-06-2016 End: 05-09-2016 Thyroxine (T4) Billy Mruray MD Work Phone: Start: 07-05-2014 End: 05-06-2016 X-ray exam of wrist Teofilo Argueta Work Phone: Start: 03-26-2010 End: 05-06-2016 Other Referral Salomon Perez MD Start: 03-11-2010 End: 08-22-2011 Hepatic function panel Salomon Perez MD Start: 03-11-2010 End: 08-22-2011 Manual cell count, each Salomon Dawkins Start: 01-10-2010 End: 08-22-2011 Hepatic function panel Salomon Perez MD Start: 01-10-2010 End: 08-22-2011 Manual cell count, each Salomon Dawkins Start: 12-13-2009 End: 08-22-2011 Manual cell count, each Salomon Dawkins Start: 10-23-2009 End: 10-26-2009 *CRP Salomon Perez MD Start: 10-23-2009 End: 10-26-2009 Rbc sed rate, nonautomated Salomon jones MD Start: 10-23-2009 End: 10-26-2009 X-ray exam of foot Salomon Perez MD Plan of Treatment Date Care Activity Detail Author Start: 10-02-2027 Screening for malignant neoplasm of colon Colon cancer screen colonoscopy [facility] Work Phone: Start: 09-06-2020 COVID-19 Vaccine (2 of 2 - Moderna series) COVID-19 Vaccine (2 of 2 - Moderna series) [facility] Work Phone: Start: 2020 Influenza vaccination Flu vaccine (#1) [facility] Work Phone: Start: 12-12-2018 Annual Wellness Visit (AWV) Annual Wellness Visit (AWV) [facility] Work Phone: Start: 07-16-2017 End: 07-16-2017 Appointment Appointment [facility] Work Phone: Start: 06-30-2017 End: 01-07-2017 *Hepatic Function Panel *Hepatic Function Panel [facility] Work Phone: Start: 06-30-2017 End: 06-29-2017 Lipid panel [AGGREGATE] *Lipid Profile CC PCP [facility] Work Phone: Start: 01-15-2017 End: 01-15-2017 Appointment Appointment [facility] Work Phone: Start: 01-15-2017 End: 01-15-2017 DJN JAYDENN [facility] Work Phone: Start: 01-15-2017 End: 01-15-2017 Follow Up Appt 6 months Follow Up Appt 6 months [facility] Work Phone: Start: 01-13-2017 End: 01-13-2017 Appointment Appointment [facility] Work Phone: Start: 12-29-2016 End: 12-24-2016 *Hepatic Function Panel *Hepatic Function Panel [facility] Work Phone: Start: 12-29-2016 End: 12-24-2016 Lipid panel [AGGREGATE] *Lipid Profile CC PCP [facility] Work Phone: Start: 06-30-2016 End: 06-30-2016 *Hepatic Function Panel *Hepatic Function Panel [facility] Work Phone: Start: 06-30-2016 End: 06-30-2016 Lipid panel [AGGREGATE] *Lipid Profile CC PCP [facility] Work Phone: Start: 05-06-2016 End: 05-08-2016 *Hepatic Function Panel *Hepatic Function Panel [facility] Work Phone: Start: 05-06-2016 End: 05-06-2016 MT AMOR [facility] Work Phone: Start: 05-06-2016 End: 05-06-2016 Electrocardiogram, complete EKG (In office) [facility] Work Phone: Start: 05-06-2016 End: 05-06-2016 Follow Up Appt 1 month Follow Up Appt 1 month [facility] Work Phone: Start: 05-06-2016 End: 05-08-2016 Lipid panel [AGGREGATE] *Lipid Profile CC PCP [facility] Work Phone: Start: 05-06-2016 End: 05-06-2016 Stress Echocardiogram (treadmill) Stress Echocardiogram (treadmill) [facility] Work Phone: Start: 05-06-2016 End: 05-09-2016 Thyroid stimulating hormone (TSH) *TSH [facility] Work Phone: Start: 05-06-2016 End: 05-09-2016 Thyroxine (T4) *T4 (Total) [facility] Work Phone: Start: 07-05-2014 End: 05-06-2016 X-ray exam of wrist X-Ray, Wrist [facility] Work Phone: Start: 2014 Pneumococcal 65+ years Vaccine (1 of 1 - PPSV23) Pneumococcal 65+ years Vaccine (1 of 1 - PPSV23) [facility] Work Phone: Start: 03-26-2010 End: 05-06-2016 Other Referral Other Referral [facility] Work Phone: Start: 03-11-2010 End: 08-22-2011 Hepatic function panel *Liver/Hepatic Function Panel [facility] Work Phone: Start: 03-11-2010 End: 08-22-2011 Manual cell count, each *CBC with Differential [facility] Work Phone: Start: 01-10-2010 End: 08-22-2011 Hepatic function panel *Liver/Hepatic Function Panel [facility] Work Phone: Start: 01-10-2010 End: 08-22-2011 Manual cell count, each *CBC with Differential [facility] Work Phone: Start: 12-13-2009 End: 08-22-2011 Manual cell count, each *CBC with Differential [facility] Work Phone: Start: 10-23-2009 End: 10-26-2009 *CRP *CRP [facility] Work Phone: Start: 10-23-2009 End: 10-26-2009 Rbc sed rate, nonautomated *Sedimentation Rate (ESR) [facility] Work Phone: Start: 10-23-2009 End: 10-26-2009 X-ray exam of foot X-Ray, Foot [facility] Work Phone: Start: 02-22-2004 Screening for osteoporosis DEXA (modify frequency per FRAX score) [facility] Work Phone: Start: 1999 Screening for malignant neoplasm of breast Breast cancer screen [facility] Work Phone: Start: 1999 Shingles Vaccine (1 of 2) Shingles Vaccine (1 of 2) [facility] Work Phone: Start: 02-22-1968 DTaP/Tdap/Td vaccine (1 - Tdap) DTaP/Tdap/Td vaccine (1 - Tdap) [facility] Work Phone: Start: 1959 Lipid panel Lipid screen [facility] Work Phone: Start: 1949 Hepatitis C screening Hepatitis C screen [facility] Work Phone: Patient Education [facility] Work Phone: Immunizations Immunization Date Immunization Notes Care Provider Mendy burgos 02-25-2018 Influenza, Quadv, 6 mo and older, IM, PF (Flulaval, Fluarix) Kishan Aguiar [facility] Work Phone: Payers Date Payer Category Payer Medicare [facility] [id number] 2015-Present [phone] [address] [place] [address] [id number] 1949 Unknown [id number] 1949 Unknown [id number] 1949 Unknown [id number] 1949 Unknown [id number] 1949 Unknown [id number] 1949 Unknown [id number] 1949 Unknown [id number] 1949 Unknown [id number] Medicare Unknown Social History Date Type Detail Facility Start: 06-09-2019 Tobacco smoking stat [facility] Former smoker [facility] Phone: Start: 06-25-1964 End: 06-22-1974 History of tobacco use Current smoker [facility] Phone: Start: 06-25-1964 End: 06-22-1974 History of tobacco use Cigarette Smoker [facility] Work Phone: Start: 06-09-2019 Cigarettes smoked current (pack per day) - Reported [facility] Phone: Start: 06-09-2019 Tobacco use and exposure Never used [facility] Work Phone: Start: 06-09-2019 Alcohol intake Current drinke r of alcohol (finding) [facility] Work Phone: Start: 06-25-2017 Alcohol Comment last drinking 06/23/2017,1-2 x per week. never attended AA program [facility] Work Phone: Sex Assigned At Not on file [facility] Work Phone: Progress note 12-21-2020 Note Date & Type Note Facility 12-21-2020 Note HNO ID: [id number] Author: Lisa Maxwell APRN.BUSINESS INTELLIGENCE ANALYST Service: ? Author Type: Nurse Practitioner Type: Progress Notes Filed: 12/21/2020 1:26 PM Note Text: Subjective HPI Alix Cross is a 70 year old female who presents with right jaw pain for the past 3 days. She has been taking amoxicillin for a sinus infection. Rates the pain 2/10. Is worse with opening her jaw or chewing. States she has a tendency to bite down when stressed. Has a partial plate that does not fit properly. She has to find a new dentist-hers has moved out of the area. Review of Systems Constitutional: Negative for chills and fever. HENT: Negative for ear pain, nosebleeds, sinus pain and sore throat. See HPI Skin: Negative for itching and rash. Neurological: Negative for headaches. BP 122/60 Pulse 72 Temp 36.9 ?C (98.5 ?F) Resp 16 Wt 65.8 kg (145 lb) SpO2 95% BMI 24.89 kg/m? PAST MEDICAL HISTORY Diagnosis Date - Atrial fibrillation (HCC) Dr Collins - Bunion, right foot - Constipation - Fibromyalgia - GERD (gastroesophageal reflux disease) - H/O mitral valve replacement [facility] - Hammer toe - Hyperlipidemia - Psoriatic arthritis (HCC) likely osteoarthritis - Pustular psoriasis - Seasonal allergies PAST SURGICAL HISTORY Procedure Laterality Date - FOOT RIGHT OP SURGERY 07/23/12 right bunion removal, hammer toe, 3rd toe straightened - OPEN RX DISTAL RADIUS FX, INTRA-ARTICULAR, 3+ FRAG 07/14/14 ORIF left distal radius and ulnar styloid - PAST SURGICAL HISTORY OF 06-25-12 left retinal tear repair - REMOVAL OF TONSILS,<12 Y/O remote Tonsillectomy - REPLACEMENT OF MITRAL VALVE 09/1995 Mitral valve replacement ([facility]) - TOTAL ABDOM HYSTERECTOMY 1985 Menorrhagia/fibroids, one ovary remains ALLERGIES Adhesive, Kiwi, Nickel, Quinine, Seasonal Allergies, and Sulfa (Sulfonamide Antibiotics) MEDICATIONS flecainide acetate 150 mg tablet Take 1 tablet by mouth twice daily. warfarin (COUMADIN) 1 mg tablet Take 1 tablet by mouth daily as directed. PARoxetine (PAXIL) 20 mg tablet Take 1 tablet by mouth once daily. FOLIC ACID 800 MCG TAB Take one(1) tablet daily. vitamin b complex(B COMPLEX TAB) Adalimumab (HUMIRA PEN) 40 mg/0.8 mL Humira Pen predniSONE (DELTASONE) 20 mg tablet Take 2 tablets by mouth once daily for 4 days. Take daily with food. secukinumab (COSENTYX, 2 SYRINGES,) 150 mg/mL injection Inject subcutaneously one time only. RANITIDINE HCL (ZANTAC ORAL) Take by mouth. atenolol (TENORMIN) 50 mg tablet Take 0.5 tablets by mouth once daily. warfarin (COUMADIN) 2.5 mg tablet Take 1 tablet by mouth daily as directed. oxyCODONE-acetaminophen (PERCOCET) 5-325 mg tablet Take 1 tablet by mouth every 4 hours as needed. docusate sodium (COLACE) 100 mg capsule Take 1 capsule by mouth twice daily. coenzyme Q10 100 mg cap Take 1 capsule by mouth. adalimumab (HUMIRA) 40 mg/0.8 mL injection Dispense pen BISACODYL (DULCOLAX ORAL) Take by mouth. triamcinolone acetonide 0.1 % cream Apply 1 application to affected area twice daily as needed (for psoriasis). FAMILY HISTORY Problem Relation Age of Onset - Cancer Mother Pancreatic - Cancer Father Lung - Arthritis Maternal Grandfather Lupus - Diabetes Maternal Grandmother - Cancer Paternal Aunt bladder - Asthma Brother Social History Tobacco Use - Smoking status: Former Smoker Packs/day: 2.00 Years: 10.00 Pack years: 20.00 Types: Cigarettes Quit date: 06/22/1974 Years since quittin.5 - Smokeless tobacco: Never Used Substance Use Topics - Alcohol use: Yes Comment: one drink per week - Drug use: No Objective Physical Exam Vitals and nursing note reviewed. Constitutional: Appearance: Normal appearance. HENT: Right Ear: Tympanic membrane, ear canal and external ear normal. Left Ear: Tympanic membrane, ear canal and external ear normal. Mouth/Throat: Mouth: Mucous membranes are moist. Dentition: Has dentures. No gingival swelling or dental abscesses. Pharynx: Oropharynx is clear. No pharyngeal swelling, oropharyngeal exudate or posterior oropharyngeal erythema. Neurological: Mental Status: She is alert. ASSESSMENT/PLAN: 1. 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 - Follow-up with your dentist in 3-5 days if symptoms have not improved or sooner if symptoms worsen - Discussed red flags and need for immediate medical evaluation if any occur. - Discussed supportive care treatment with fluids, rest and analgesia. 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 Expl anation ACP-Advance Directive ACP-Power of Package Dyeing Machine Operator ACP-Power of Package Dyeing Machine Operator 01/14/2018 10:48 AM 04/06/16, Power of Package Dyeing Machine Operator for Health Care Latest Code Status on File Code Status Date Activated Date Inactivated Comments Full Code 02/24/2018 1:11 PM 02/25/2018 8:09 PM Full Code 02/24/2018 7:42 AM 02/24/2018 10:46 AM Full Code 01/28/2018 1:43 PM 01/28/2018 6:12 PM Full Code 01/28/2018 8:32 AM 01/28/2018 1:43 PM Full Code 10/01/2017 9:08 AM 10/01/2017 1:53 PM Additional Source Comments INFORMATION SOURCE (unrecogn ized section and content) DATE CREATED AUTHOR AUTHOR'S ORGANIZ ATION 01/24/2021 [facility] DATE CREATED AUTHOR AUTHOR'S ORGANIZ ATION 07/22/2021 [facility] DATE CREATED AUTHOR AUTHOR'S ORGANIZ ATION 09/14/2022 [facility] [employer] [facility] FOR RECORDS PERTAINING TO PATIENTS WHO ARE OR HAVE BEEN ENROLLED IN A CHEMICAL DEPENDENCY/SUBSTANCEABUSE PROGRAM, SOME INFORMATION MAY BE OMITTED. This clinical summary was aggregated from multiple sources. Caution should be exercised in using it in the provision of clinical care. This summary normalizes information from multiple sources, and as a consequence, information in this document may materially change the coding, format and clinical context of patient data. In addition, data may be omitted in some cases. CLINICAL DECISIONS SHOULD BE BASED ON THE PRIMARY CLINICAL RECORDS. [facility] [employer] [facility]. provides no warranty or guarantee of the accuracy or completeness of information in this document.
[2023-06-26 14:00] VITALS: BP 96/57; PULSE 71; RESP 16; O2SAT 91
[2023-06-26 15:34] VITALS: BP 146/103; PULSE 100; RESP 14; O2SAT 93
== END 2023-06-26 15:55 | disposition home or self-care (01) ==
PROVIDERS: Emergency Provider Emergency Medicine; PCP Family Medicine; Visit Provider Emergency Medicine
DX: K57.32 Diverticulitis of large intestine without perforation or abscess without bleeding (principal); I48.0 Paroxysmal atrial fibrillation; R10.32 Left lower quadrant pain; R53.1 Weakness; F32.A Depression, unspecified; Z79.899 Other long term (current) drug therapy; Z79.01 Long term (current) use of anticoagulants; Z87.891 Personal history of nicotine dependence
CPT/HCPCS: 71045; 74177; 80048; 84484; 85025; 85610; 93005; 96374; 99284; Q9967

== ENCOUNTER 2023-10-12 18:45 | Emergency (ER) | payer MEDICARE, SELFPAY ==
[2023-10-12] VITALS (45 sets, daily range): BP systolic 56–179; BP diastolic 21–154; PULSE 99–125; RESP 12–42; TEMP 36.2–37; O2SAT 85–99; BMI 24.3
--- NOTE | 2023-10-12 19:02 | EKG12_ITS ---
Test Reason : DYSRHYTHMIA Blood Pressure : / mmHG Vent. Rate : 113 BPM Atrial Rate : 113 BPM P-R Int : 240 ms QRS Dur : 104 ms QT Int : 332 ms P-R-T Axes : 069 075 142 degrees QTc Int : 455 ms Sinus tachycardia with 1st degree A-V block Marked ST abnormality, possible lateral subendocardial injury Abnormal ECG Confirmed by RENE KAUR, BRADLY ([id number]), editor trade journal KETAN SAHA ([id number]) on 10/19/2023 1:28:55 PM Referred By: Confirmed By:JAH LÓPEZ MD
[2023-10-12] MEDS: Ipratropium/Albuterol Sulfate 3 ML AMPUL.NEB INHALATION (19:11)
[2023-10-12 19:14] LABS: Absolute Lymphocyte Count 1.43 X10^3/uL (0.83-4.51); Absolute Neutrophil Count 12.8 X10^3/uL (2.0-7.7); Basophil# 0.06 X10^3/uL; Basophil% 0.4 % (0-1); Eosinophil# 0.05 X10^3/uL; Eosinophils% 0.3 % (0-5); Hematocrit 45.1 % (37-47); Hemoglobin 14.9 g/dL (12.0-15.0); Lymphocyte # 1.43 X10^3/ul (0.83-4.51); Lymphocyte % 9.1 % (19-41); Mean Corpuscular Hgb 28.1 pg (27.0-32.0); Mean Corpuscular Volume 85.1 fL (81-99); Mean Platelet Vol. 9.2 fl (6.2-12.0); Monocyte% 8.2 % (0-10); NRBC Flagged by Analyzer 0 % (0-5); Neutrophil # 12.84 X10^3/uL (2.7-7.7); Neutrophil % 81.5 % (47-70); Platelet Count 284 K/mm3 (150-450); RBC Distribution Width CV 14.4 % (11.6-14.6); RBC Distribution Width SD 44.7 fl (35.1-43.9); White Blood Count 15.8 K/mm3 (4.4-11.0)
[2023-10-12 19:22] LABS: International Normalized Ratio 1.3; Partial Thromboplast Time 25.4 Seconds (24.1-36.2); Prothrombin Time (Protime)PT. 16.2 SECONDS (11.7-14.9)
--- NOTE | 2023-10-12 19:25 | EDS_ITS ---
HPI History of Present Illness Chief Complaint: Shortness of Breath Narrative Narrative: 73-year-old female past medical history of atrial fibrillation, on Coumadin, hyperlipidemia, presents with shortness of breath and dyspnea on exertion that she has had for the last few days. She relates history that she has been sick for the last few days. She was diagnosed with a UTI. She has had generalized weakness but denies any fevers or chills, no nausea or vomiting. EMS was called because she feels very weak. On their arrival, they state that her pulse ox was 79% on room air. She does not wear oxygen at home. She quit smoking in 1974, and states she does not have a diagnosis of COPD. She denies any leg swelling, or other symptoms. Her states she can barely walk a few steps without feeling very weak and short of breath. No chest pain. Of note, she states she also takes her Coumadin because she has an artificial valve. [facility] Medical History Aortic stenosis with bicuspid valve Asthma Bleeding per rectum Constipation Depression GERD (gastroesophageal reflux disease) GI bleed History of transcatheter aortic valve replacement (TAVR) (02/24/18) Hyperlipidemia Left bundle-branch block Left low back pain Left wrist sprain custodial current use of anticoagulant Lumbar strain Near syncope Nonrheumatic mitral valve insufficiency Nonrheumatic mitral valve prolapse Paroxysmal atrial fibrillation Peripheral vertigo, unspecified Psoriasis Refusal of blood transfusions as patient is Nondenominational Typical atrial flutter Ventricular tachycardia Home Medications triamcinolone acetonide 0.1 % topical cream 1 applic topical .COMPLEX 04/30/18 [History Last Taken Unknown] warfarin 2.5 mg tablet 2.5 mg PO DAILY Mitral valve 11/18/18 [History Last Taken Unknown] paroxetine HCl 20 mg tablet (Paxil) 10 mg PO DAILY 05/11/19 [History Last Taken Unknown] adalimumab 40 mg/0.8 mL subcutaneous pen kit (Humira Pen) See Rx Instructions .Route .COMPLEX Check with primary doctor 03/07/21 [History Last Taken Unknown] clobetasol 0.05 % topical cream 1 applic topical DAILY PRN PSORIASIS 01/15/22 [History Last Taken Unknown] polyethylene glycol 3350 17 gram oral powder packet 17 g PO BID 30 days #100 ea 12/13/22 [Rx Last Taken Unknown] atenolol 25 mg tablet 12.5 mg (1/2 x 25 mg) PO DAILY #45 tabs 12/26/22 [Rx Last Taken Unknown] flecainide 50 mg tablet 50 mg PO Q12H #180 tabs 01/05/23 [Rx Last Taken Unknown] Allergy/AdvReac Type Severity Reaction Status Date / Time azithromycin Allergy Mild Unknown Verified 10/12/23 18:46 [From Zithromax Z-Fermin] bupropion Allergy Mild Unknown Verified 10/12/23 18:46 [From Wellbutrin SR] cefdinir [From Omnicef] Allergy Mild NEEDS Verified 10/12/23 18:46 FOLLOW-UP chamomile flower Allergy Unknown unknown Verified 10/12/23 18:46 Sulfa (Sulfonamide Allergy Unknown Verified 10/12/23 18:46 Antibiotics) kiwi AdvReac Intermediate unknown Verified 10/12/23 18:46 nickel AdvReac Unknown unknown Verified 10/12/23 18:46 quinine AdvReac Unknown unknown Verified 10/12/23 18:46 adhesive AdvReac unknown Verified 10/12/23 18:46 Family History Father Cancer Mother Cancer Surgical History H/O fracture of wrist H/O hysterectomy with unilateral oophorectomy H/O mitral valve replacement with mechanical valve (10/01/95) Hammertoe of left foot History of cataract surgery History of left heart catheterization (2017) History of radiofrequency ablation procedure for cardiac arrhythmia (10/10/02) Retinal tear Social History Smoking Status: Former smoker alcohol intake: current alcohol intake frequency: holidays/special occasions only substance use type: does not use ROS ROS ED ROS Narrative Constitutional: No fever, no chills. Generalized weakness. HEENT: No sore throat. No neck pain. No loss of vision. No rhinorrhea. Cardiovascular: No chest pain. No palpitations. No pedal edema. Respiratory: No cough, positive dyspnea on exertion and shortness of breath. Abdominal: No abdominal pain. No nausea. No vomiting. Genitourinary: No dysuria. No hematuria. Musculoskeletal: No myalgias. No arthralgias. Neurologic: No headaches. No dizziness. No lightheadedness. Skin: No rash. No change in color. Psychiatric: No depression. No anxiety. EXAM Physical Exam Narrative Exam Narrative: Afebrile. Vital signs noted. HEENT: Normocephalic. Atraumatic. PERRL, EOMI. Neck soft and supple. No point tenderness or step off. Cardiovascular: Positive tachycardia no rubs, or gallops appreciated. Respiratory: Mild tachypnea, decreased breath sounds bilateral bases. Positive expiratory wheezing. Moving a fair amount of air. Gastrointestinal: Abdomen soft, nontender, with normoactive bowel sounds. No rebound or guarding. Neurological: Awake. Alert. Nonfocal, nonlateralizing. Skin: No rash. Normal color. No pallor. Musculoskeletal: No pedal edema. Full range of motion extremities. Const Vital Signs: 10/12/23 18:46 10/12/23 18:49 10/12/23 18:51 Temperature 98.6 F 98.3 F Temperature Source Oral Oral Pulse Rate 115 H 113 H Respiratory Rate 26 H 22 H Respiratory Effort Short of Breath Respiratory Depth Shallow Respiratory Pattern Tachypnea Blood Pressure 90/62 91/68 Blood Pressure Mean 71 75 Pulse Ox 89 91 Oxygen Delivery Method Nasal Cannula Nasal Cannula Nasal Cannula Oxygen Flow Rate (L/min) 3 4 5 Fraction of Inspired Oxygen (FIO2) 10/12/23 19:09 10/12/23 19:11 10/12/23 19:49 Temperature 98.2 F Temperature Source Temporal Pulse Rate 117 H 122 H Respiratory Rate 24 H 25 H Respiratory Effort Respiratory Depth Respiratory Pattern Tachypnea Blood Pressure 104/90 H Blood Pressure Mean 94 Pulse Ox 92 91 Oxygen Delivery Method Nasal Cannula Nasal Cannula Oxygen Flow Rate (L/min) 5 4 Fraction of Inspired Oxygen (FIO2) 10/12/23 20:45 10/12/23 21:00 10/12/23 21:51 Temperature 97.2 F L Temperature Source Axillary Pulse Rate 120 H 125 H 119 H Respiratory Rate 22 H 31 H 28 H Respiratory Effort Respiratory Depth Respiratory Pattern Tachypnea Blood Pressure 135/82 H 122/75 H Blood Pressure Mean 99 90 Pulse Ox 95 95 95 Oxygen Delivery Method Bi-pap Bi-pap Oxygen Flow Rate (L/min) Fraction of Inspired Oxygen (FIO2) 40 10/12/23 22:01 10/12/23 22:19 10/12/23 22:21 Temperature Temperature Source Pulse Rate 119 H 104 H Respiratory Rate 26 H 28 H Respiratory Effort Short of Breath Labored Accessory Muscle Use Respiratory Depth Deep Respiratory Pattern Tachypnea Blood Pressure 179/154 H 89/54 L Blood Pressure Mean 162 65 Pulse Ox 95 97 98 Oxygen Delivery Method Bi-pap Mechanical Ventilator Mechanical Ventilator Oxygen Flow Rate (L/min) Fraction of Inspired Oxygen (FIO2) 10/12/23 22:35 10/12/23 23:42 10/12/23 23:47 Temperature Temperature Source Pulse Rate 106 H 116 H 112 H Respiratory Rate 33 H 42 H 41 H Respiratory Effort Respiratory Depth Respiratory Pattern Blood Pressure 89/72 L 75/56 L 85/70 L Blood Pressure Mean 77 62 75 Pulse Ox 93 98 Oxygen Delivery Method Mechanical Ventilator Mechanical Ventilator Oxygen Flow Rate (L/min) Fraction of Inspired Oxygen (FIO2) 10/13/23 00:06 10/12/23 22:10 10/12/23 21:29 Temperature Temperature Source Pulse Rate 103 H 113 H 118 H Respiratory Rate 34 H 20 H 17 Respiratory Effort Respiratory Depth Respiratory Pattern Normal Blood Pressure Blood Pressure Mean Pulse Ox 85 91 95 Oxygen Delivery Method Mechanical Ventilator Oxygen Flow Rate (L/min) Fraction of Inspired Oxygen (FIO2) 100 10/12/23 21:30 10/12/23 21:31 10/12/23 21:46 Temperature Temperature Source Pulse Rate 119 H Respiratory Rate 31 H Respiratory Effort Respiratory Depth Respiratory Pattern Blood Pressure 103/77 122/75 H Blood Pressure Mean 85 85 Pulse Ox 96 Oxygen Delivery Method Oxygen Flow Rate (L/min) Fraction of Inspired Oxygen (FIO2) 10/12/23 21:50 10/12/23 22:00 10/12/23 22:15 Temperature Temperature Source Pulse Rate 117 H 112 H Respiratory Rate 13 23 H Respiratory Effort Respiratory Depth Respiratory Pattern Blood Pressure 178/107 H Blood Pressure Mean 128 Pulse Ox 95 85 99 Oxygen Delivery Method Oxygen Flow Rate (L/min) Fraction of Inspired Oxygen (FIO2) 10/12/23 22:16 10/12/23 22:21 10/12/23 22:24 Temperature Temperature Source Pulse Rate 113 H 109 H 109 H Respiratory Rate 26 H 30 H 36 H Respiratory Effort Respiratory Depth Respiratory Pattern Blood Pressure 179/154 H 88/50 L Blood Pressure Mean 164 62 79 Pulse Ox 99 97 96 Oxygen Delivery Method Oxygen Flow Rate (L/min) Fraction of Inspired Oxygen (FIO2) 10/12/23 22:30 10/12/23 22:32 10/12/23 22:40 Temperature Temperature Source Pulse Rate 106 H 105 H 104 H Respiratory Rate 26 H 24 H 29 H Respiratory Effort Respiratory Depth Respiratory Pattern Blood Pressure 58/40 L 89/72 L 57/41 L Blood Pressure Mean 47 80 48 Pulse Ox 97 97 97 Oxygen Delivery Method Oxygen Flow Rate (L/min) Fraction of Inspired Oxygen (FIO2) 10/12/23 22:45 10/12/23 22:50 10/12/23 22:55 Temperature Temperature Source Pulse Rate 103 H 102 H 103 H Respiratory Rate 30 H 31 H 31 H Respiratory Effort Respiratory Depth Respiratory Pattern Blood Pressure 58/41 L 68/21 L 61/47 L Blood Pressure Mean 48 34 53 Pulse Ox 98 96 96 Oxygen Delivery Method Mechanical Ventilator Oxygen Flow Rate (L/min) Fraction of Inspired Oxygen (FIO2) 10/12/23 23:00 10/12/23 23:05 10/12/23 23:11 Temperature Temperature Source Pulse Rate 102 H 99 100 Respiratory Rate 34 H 38 H 35 H Respiratory Effort Respiratory Depth Respiratory Pattern Blood Pressure 56/40 L Blood Pressure Mean 45 48 Pulse Ox 96 97 97 Oxygen Delivery Method Mechanical Ventilator Oxygen Flow Rate (L/min) Fraction of Inspired Oxygen (FIO2) 10/12/23 23:15 10/12/23 23:21 10/12/23 23:23 Temperature Temperature Source Pulse Rate 111 H 113 H 114 H Respiratory Rate 37 H 39 H 37 H Respiratory Effort Respiratory Depth Respiratory Pattern Blood Pressure 69/32 L 85/59 L Blood Pressure Mean 43 106 69 Pulse Ox 97 Oxygen Delivery Method Oxygen Flow Rate (L/min) Fraction of Inspired Oxygen (FIO2) 10/12/23 23:25 10/12/23 23:30 10/12/23 23:35 Temperature Temperature Source Pulse Rate 114 H 114 H 112 H Respiratory Rate 41 H 41 H 42 H Respiratory Effort Respiratory Depth Respiratory Pattern Blood Pressure 76/50 L 84/65 L 78/59 L Blood Pressure Mean 58 74 64 Pulse Ox 95 94 95 Oxygen Delivery Method Mechanical Ventilator Mechanical Ventilator Oxygen Flow Rate (L/min) Fraction of Inspired Oxygen (FIO2) 10/12/23 23:40 10/12/23 23:45 10/12/23 23:46 Temperature Temperature Source Pulse Rate 114 H 117 H 115 H Respiratory Rate 33 H 37 H 36 H Respiratory Effort Respiratory Depth Respiratory Pattern Blood Pressure 75/56 L 85/60 L Blood Pressure Mean 62 68 Pulse Ox 95 Oxygen Delivery Method Oxygen Flow Rate (L/min) Fraction of Inspired Oxygen (FIO2) 10/12/23 23:50 10/12/23 23:55 10/13/23 00:00 Temperature Temperature Source Pulse Rate 111 H 110 H 112 H Respiratory Rate 38 H 41 H 40 H Respiratory Effort Respiratory Depth Respiratory Pattern Blood Pressure 85/70 L 118/97 H 78/64 L Blood Pressure Mean 77 105 70 Pulse Ox 92 Oxygen Delivery Method Mechanical Ventilator Oxygen Flow Rate (L/min) Fraction of Inspired Oxygen (FIO2) 10/13/23 00:05 10/13/23 00:10 10/13/23 00:11 Temperature Temperature Source Pulse Rate 108 H 101 H Respiratory Rate 41 H 34 H Respiratory Effort Respiratory Depth Respiratory Pattern Blood Pressure 71/58 L 37/16 L 75/63 L Blood Pressure Mean 64 23 69 Pulse Ox 77 Oxygen Delivery Method Oxygen Flow Rate (L/min) Fraction of Inspired Oxygen (FIO2) 10/13/23 00:15 10/13/23 00:20 10/13/23 00:25 Temperature Temperature Source Pulse Rate 100 97 97 Respiratory Rate 38 H 39 H 38 H Respiratory Effort Respiratory Depth Respiratory Pattern Blood Pressure 67/54 L 61/28 L 55/19 L Blood Pressure Mean 60 40 31 Pulse Ox 82 78 Oxygen Delivery Method Mechanical Ventilator Mechanical Ventilator Oxygen Flow Rate (L/min) Fraction of Inspired Oxygen (FIO2) 10/13/23 00:30 10/13/23 00:45 Temperature Temperature Source Pulse Rate 0 L Respiratory Rate Respiratory Effort Respiratory Depth Respiratory Pattern Blood Pressure 55/25 L Blood Pressure Mean 34 Pulse Ox Oxygen Delivery Method Oxygen Flow Rate (L/min) Fraction of Inspired Oxygen (FIO2) Sepsis Attestation Sepsis Alert: Yes Sepsis Attestation: Agree w/Sepsis Date exam was performed: 10/12/23 Time exam was performed: 21:00 Possible Source of Sepsis: Pulmonary Sepsis Organ Dysfunction Criteria Present: SBP < 90 mmHg or MAP < 65 mmHg, SBP decrease of more than 40 mmHg, Acute Respiratory Failure (New need for BiPAP/CPAP or MV) and Lactic Acid > 2 mmol/L Fluid Resuscitation Fluid resuscitation indicated?: Yes Fluid Resuscitation ordered: 30 ml/kg fluid bolus ordered Reason for lesser fluid bolus:: Concern for fluid overload (Initially because of pink, frothy sputum while intubating) Sepsis Note Date exam was performed: 10/12/23 Time exam was performed: 23:24 Sepsis Attestation: Sepsis re-evaluation was performed Response to fluids: Non Fluid responsive hypotension and Vasopressors started MDM MDM MDM Narrative Medical decision making narrative: In the differential diagnosis is pneumonia versus CHF versus COPD. Given that she was tachycardic and hypoxic, sepsis workup was pursued as well. I reviewed her EKG and interpreted individually which demonstrates sinus tachycardia at [address] changes. No STEMI. Review of her laboratory work shows leukocytosis of 15.8 with hemoglobin normal at 14.9, hematocrit 45.1 and platelet count normal at 14.4. INR is subtherapeutic at 1.3. She was given a DuoNeb aerosolized treatment for her wheezing and hypoxia. Chest x-ray obtained in 1 view and interpreted by myself independently as bilateral pneumonia. It appears worse than previous. She has an elevated white count of 15.8 with hemoglobin normal of 14.9 on review. Platelet count normal at 284. INR subtherapeutic at 1.3. Her sodium is low at 135 with CO2 low at 19 which may be secondary to her hyperventilation. BUN is elevated at 31 with creatinine 2.13. Glucose is elevated at 219 with an anion gap normal at 12. Her lactic acid is elevated at 3.3. 30 mL/kg bolus was ordered. She is supposed to receive a total of approximately 2 L. I reviewed her urinalysis and although she is positive for nitrites, there are 0-5 WBCs. I do not think that her urine is a source of her lactic acidosis. Patient became progressively more short of breath. Upon repeat examination, I told her that I was going to place her on BiPAP. At that time I did ask about the possibility of intubation, and initially she had declined. Per respiratory therapy, patient ripped off the BiPAP mask and continued to have tachypnea and tripod. Arterial blood gas was performed while on BiPAP and she has a pH of 7.3 with a pCO2 of 25.8 and a PaO2 of 85.3. Patient was moved to bed 1. It was felt that given her worsening condition, and on further review of her chest x-ray that she may have ARDS. She has verbally consented to intubation at this time. Her remained at the bedside until just prior to intubation. 20 mg of etomidate and 110 mg of succinylcholine were used and patient was intubated using the glide scope with a MAC 3 blade. 7.5 ET tube was inserted to 25 at the lips. She had equal breath sounds afterwards. Chest x-ray after intubation was obtained and interpreted by myself independently to show the tip of the ET tube above the dedrick. Additionally, the OG tube is past the diaphragm. I reviewed the radiology report which confirms my independent interpretation of her second chest x-ray. Her ventilation settings were changed. There was an increase in PEEP and in the respiratory rate. Sedation with propofol was initially ordered as she was normotensive if not hypertensive. Patient did receive 5 mg of Versed. She had a dip in her systolic blood pressure. Initially, there was hesitation that this is pulmonary edema. However, upon review of her BNP, its only elevated in the 200s. She was bolused additional IV fluids. Patient will be discussed with the hospitalist for admission to the ICU. Critical care time 33 minutes. Patient continued to have hypotension. At times her MAP was above 60. Levophed was started through one of her peripheral IVs. I had discussed insertion of a central line with her . Her and his friend, however declined central line placement stating that the patient would not want that type of invasive procedure. I told them of the necessity to continue running Levophed, but also discussed the possibility that even with continued Levophed, that the patient could . Repeat lactic acid elevated to 6.8. Her acknowledged an understanding of her not improving even on Levophed and being intubated. I discussed with him changing her CODE STATUS, and he has elected for DO NOT RESUSCITATE Comfort Care only, and withdrawal of care in the emergency department. I had respiratory therapy at the bedside, as well as the RN. He would like her extubated. OG was also removed. Levophed and IV fluids were withdrawn. Upon removal of the ET tube, patient did have agonal respirations with loss of gag reflex. She was administered Dilaudid 1 mg intravenously for comfort. I was called to the room by the RN to examine the patient. She had no palpable pulses. No spontaneous respirations. No auscultated heart sounds. No corneal reflex. Pupils fixed and dilated. She was pronounced at 12:51 AM by myself. Her primary care provider will be contacted. Disposition is . History & Record Review Discussion w/independent historian: Patient and Family Additional record(s) reviewed:: Prior ED visit and Prior labs Lab Data Attestation: I reviewed the patient's lab results. Labs: Laboratory Results - last 24 hr 10/12/23 10/12/23 10/12/23 18:36 19:00 20:10 WBC 15.8 H RBC 5.30 Hgb 14.9 Hct 45.1 MCV 85.1 MCH 28.1 MCHC 33.0 RDW Std Deviation 44.7 H RDW Coeff of Teodora 14.4 Plt Count 284 MPV 9.2 Immature Gran % (Auto) 0.500 Neut % (Auto) 81.5 H Lymph % (Auto) 9.1 L [place] % (Auto) 8.2 Eos % (Auto) 0.3 Baso % (Auto) 0.4 Absolute Neuts (auto) 12.8 H Absolute Lymphs (auto) 1.43 Nucleated RBC % 0 PT 16.2 H INR 1.3 APTT 25.4 Sodium 135 L Potassium 3.7 Chloride 104 Carbon Dioxide 19.0 L Anion Gap 12 BUN 31 H Creatinine 2.13 H Estim Creat Clear Calc 20.01 Est GFR (MDRD) Af Amer 29 L Est GFR (MDRD) Non-Af 24 L BUN/Creatinine Ratio 14.6 Glucose 219 H Lactic Acid 3.3 H* Calcium 9.7 Total Bilirubin 0.90 AST 17 ALT 15 Alkaline Phosphatase 95 Total Creatine Kinase 40 Troponin I High Sens 75 H B-Natriuretic Peptide 275.3 H Total Protein 8.0 Albumin 3.4 Globulin 4.6 H Albumin/Globulin Ratio 0.7 L Triglycerides 179 Urine Color Yellow Urine Clarity Clear Urine pH 5.0 Ur Specific [place] 1.030 Urine Protein 30 H Urine Glucose (UA) Normal Urine Ketones 5 H Urine Occult Blood 10 H Urine Nitrite Positive H Urine Bilirubin 1 H Urine Urobilinogen 1 H Ur Leukocyte Esterase 25 H Urine RBC 0-5 SEEN Urine WBC 0-5 SEEN Ur Squamous Epith Cells 0 SEEN Calcium Oxalate Crystal RARE Urine Bacteria 1+ Hyaline Casts 5-10 SEEN Urine Mucus 0 SEEN 10/12/23 23:20 WBC RBC Hgb Hct MCV MCH MCHC RDW Std Deviation RDW Coeff of [place] Plt Count MPV Immature Gran % (Auto) Neut % (Auto) Lymph % (Auto) [place] % (Auto) Eos % (Auto) Baso % (Auto) Absolute Neuts (auto) Absolute Lymphs (auto) Nucleated RBC % PT INR APTT Sodium Potassium Chloride Carbon Dioxide Anion Gap BUN Creatinine Estim Creat Clear Calc Est GFR (MDRD) Af Amer Est GFR (MDRD) Non-Af BUN/Creatinine Ratio Glucose Lactic Acid 6.8 H* Calcium Total Bilirubin AST ALT Alkaline Phosphatase Total Creatine Kinase Troponin I High Sens B-Natriuretic Peptide Total Protein Albumin Globulin Albumin/Globulin Ratio Triglycerides Urine Color Urine Clarity Urine pH Ur Specific [place] Urine Protein Urine Glucose (UA) Urine Ketones Urine Occult Blood Urine Nitrite Urine Bilirubin Urine Urobilinogen Ur Leukocyte Esterase Urine RBC Urine WBC Ur Squamous Epith Cells Calcium Oxalate Crystal Urine Bacteria Hyaline Casts Urine Mucus ABG Data ABG results: ABG 10/12/23 10/13/23 21:29 00:04 Specimen Type ART EMETERIO Sample Site L Radial Not entered pH 7.30 L Bicarbonate Actual 12.7 L Total CO2 14 Base Excess -14 L O2 Saturation 96 O2 % 60.0 ABG pCO2 25.8 L ABG pO2 85 Paco Test Positive VBG pH 6.97 L* VBG pO2 37 VBG HCO3 10 L VBG Total CO2 12 L VBG O2 Sat (Calc) 43 L VBG Base Excess -22 L POC Mix VBG pCO2 Pt Tmp 43.9 Respiration Rate 20 O2 Delivery Device BiPAP Adult Vent Vent Mode Not entered Tidal Volume 400.0 POC PEEP 8 Crit Call To/Read Back Yes Blood Gas Notified Whom Reodica Blood Gas Notified Time 00:06:31 Clinical Comments 06/04 12 40% Radiography Chest X-Ray - ED: Read by ED Physician Diagnostic Testing: Clinical Impression(s) from Imaging Studies Chest X-Ray 10/12/23 19:30 IMPRESSION: Bilateral pneumonia, pulmonary edema, or ARDS. Electronically Signed: Ari Burnham MD at 20:32 EDT , Chest X-Ray 10/12/23 22:12 IMPRESSION: 1. Interval placement of endotracheal tube with the tip above the dedrick. 2. Interval placement of nasogastric tube with the tip below the diaphragm. 3. No change in bilateral pneumonia, pulmonary edema, or ARDS. 4. Cardiomegaly. Electronically Signed: Ari Burnham MD at 22:30 EDT , Management Discussion w/another healthcare provider: Hospitalist Critical Care Time Critical Care Time: Yes Critical care time (excluding procedures): 30-74 minutes, Including time spent:, Discussing w/Patient &/or Family/Alcoholism Worker, Discussing w/Consultants, Arranging Admission or Transfer and Performing Direct Patient Care at Bedside Discharge Plan Triage Chief Complaint: Shortness of Breath ED Provider: Johan Khan Dx/Rx/DC Orders Clinical Impression: Respiratory failure, Acute respiratory distress syndrome (ARDS), Septic shock, Acute kidney injury Prescriptions: No Action triamcinolone acetonide 0.1 % cream 1 applic TOPICAL .COMPLEX Patient Comments: 1 applic TOPICAL as directed; Rx Instructions: 1 applic TOPICAL as directed; warfarin 2.5 mg tablet 2.5 mg PO DAILY Patient Comments: managed by Rx Instructions: managed by Dr.Hannan Kent Pen 40 mg/0.8 mL pen injector kit See Rx Instructions .ROUTE .COMPLEX Rx Instructions: 40 mg subcutaneously, every 2 weeks clobetasol 0.05 % cream 1 applic topical DAILY PRN (Reason: PSORIASIS) atenolol 25 mg tablet 12.5 mg PO DAILY Qty: 45 3RF flecainide 50 mg tablet 50 mg PO Q12H Qty: 180 3RF polyethylene glycol 3350 17 gram Powder In Packet 17 g PO BID 30 Days Qty: 100 1RF Rx Instructions: May hold for loose stools. paroxetine HCl [Paxil] 20 mg tablet 10 mg PO DAILY Primary Care Provider: Tom Fox Referrals: Tom Fox DO [Primary Care Provider] - Disposition Disposition: Date/Time: 10/13/23 00:51
[2023-10-12] MEDS: 0.9% Normal Saline (1000mL) 1,000 ML 999 ML IV ×3 (19:27→23:39)
[2023-10-12 19:28] LABS: ALB/GLOB Ratio 0.7 RATIO (0.9-2.4); AST(SGOT) 17 U/L (15-37); Alanine Aminotransfer ALT/SGPT 15 U/L (13-56); Albumin, Serum 3.4 g/dL (3.2-5.0); Alkaline Phosphatase 95 U/L (45-117); Anion Gap 12 (5-15); BUN 31 mg/dL (7-18); BUN/Creat Ratio 14.6 RATIO (10-20); Calcium,Total 9.7 mg/dL (8.5-10.1); Chloride 104 mmol/L (98-107); Creatinine, Serum 2.13 mg/dL (0.55-1.02); EST Glomerular Filtration Rate 24 mL/min (>60); Est Glom Filt Rate - Afr Amer 29 mL/min (>60); Estimated Creatinine Clearance 20.01 ml/min; Globulin 4.6 g/dL (2.2-4.2); Glucose 219 mg/dL (74-106); Potassium 3.7 mmol/L (3.5-5.1); Sodium Level 135 mmol/L (136-145); Troponin-I HS 75 pg/mL (3.0-54.0)
--- NOTE | 2023-10-12 19:30 | RAD_ITS ---
STUDY: X-RAY CHEST REASON FOR EXAM: Female, 73 years old. Shortness of breath TECHNIQUE: Single AP portable view of the chest. COMPARISON: None. FINDINGS: Status post median sternotomy. Suspect transcatheter aortic valve replacement. Alveolar opacities in both lungs consistent with bilateral pneumonia, pulmonary edema, or ARDS. There is no demonstrated pleural abnormality. Normal size heart. Normal mediastinum and colin. Normal visualized pulmonary arteries. Normal visualized aortic arch and descending thoracic aorta. Normal visualized thoracic spine. Normal visualized ribs, clavicles, and shoulders. There is no demonstrated abnormality of the visualized soft tissue structures of the upper abdomen. RAD/Chest 1 View (Portable) IMPRESSION: Bilateral pneumonia, pulmonary edema, or ARDS. Electronically Signed: Ari Burnham MD at 20:32 EDT ,
[2023-10-12 19:52] LABS: Lactic Acid 3.3 mmol/L (0.4-1.9)
[2023-10-12 20:17] LABS: Mucous, Urine 0 SEEN /hpf (<or=2+); Squamous Epithelial Cells - UA 0 SEEN /hpf (5-10)
[2023-10-12] MEDS: levoFLOXacin IV 750 MG/150 ML BAG 100 MG IV (20:26)
[2023-10-12 20:28] LABS: Color, Urine Yellow (Yellow); Glucose, Dipstick Normal (Normal); Ketone-Dipstick 5 mg/dl (Negative); Leukocyte Esterase-Dipstick 25 /ul (Negative); Nitrite-Dipstick Positive (Negative); Occult Blood-Urine 10 /ul (Negative); Protein-Dipstick 30 mg/dl (Negative); Urine Clarity Clear (Clear); Urine Urobilinogen 1 mg/dl (Normal)
[2023-10-12 20:36] LABS: Urine Bilirubin Dipstick 1 mg/dL (Negative)
[2023-10-12 20:38] LABS: Bacteria 1+ /hpf (None Seen); Calcium Oxalate Crystals Ur RARE /hpf (<or=2+); Hyaline Cast 5-10 SEEN /lpf (0-5); Red Blood Cells-Urine 0-5 SEEN /hpf (0-5); White Blood Cells 0-5 SEEN /hpf (0-5)
--- NOTE | 2023-10-12 20:45 | ED.RN ---
per Dr. Khan, okay to pause fluids d/t coarse lung crackles and increasing SOB
[2023-10-12 21:33] LABS: Allen Test Positive; Base Excess -14 mmol/L (-2 to +2); Bicarbonate 12.7 mmol/L (22-26); Blood Gas Specimen Type ART; Comment 16/10 12 40%; Mode Not entered; O2 Delivery Device BiPAP; PO2 85 mmHG (75-100); SITE L Radial; SO2 96 % (95-99); Total Carbon Dioxide 14 mmol/L; pCO2 25.8 mmHg (35-45)
[2023-10-12] MEDS: Etomidate 20 MG/10 ML Vial IV (21:56)
[2023-10-12] MEDS: Succinylcholine Chloride 200 MG/10 ML Vial 110 MG IV (21:57)
[2023-10-12] MEDS: Propofol 10MG/Ml 1,000 MG/100 ML Bottle 3.9 MG CONT INF (22:09)
--- NOTE | 2023-10-12 22:12 | RAD_ITS ---
STUDY: X-RAY CHEST REASON FOR EXAM: Female, 73 years old. NG Insertion, intubation TECHNIQUE: Single AP portable view of the chest. COMPARISON: 420 08/15/1931 FINDINGS: Interval placement of endotracheal tube with the tip approximate 4 cm above the dedrick. Interval placement of nasogastric tube with tip below the diaphragm. Status post median sternotomy. Suspect transcatheter aortic valve replacement. No change in alveolar opacities in both lungs consistent with bilateral pneumonia, pulmonary edema, or ARDS. There is no demonstrated pleural abnormality. There is moderate cardiac enlargement. Normal mediastinum and colin. Normal visualized pulmonary arteries. Normal visualized aortic arch and descending thoracic aorta. Normal visualized thoracic spine. Normal visualized ribs, clavicles, and shoulders. There is no demonstrated abnormality of the visualized soft tissue structures of the upper abdomen. RAD/Chest 1 View (Portable) IMPRESSION: 1. Interval placement of endotracheal tube with the tip above the dedrick. 2. Interval placement of nasogastric tube with the tip below the diaphragm. 3. No change in bilateral pneumonia, pulmonary edema, or ARDS. 4. Cardiomegaly. Electronically Signed: Ari Burnham MD at 22:30 EDT ,
[2023-10-12] MEDS: Midazolam 5 MG/ML Syringe IV (22:24)
[2023-10-12 23:10] LABS: BNP,B-Type NATRIURETIC PEPTIDE 275.3 pg/mL (0-100); CPK Total, Creatine Kinase 40 U/L (26-192); Triglycerides 179 mg/dL
[2023-10-12 23:10] LABS: Reflex Lactate? Y
--- NOTE | 2023-10-12 23:28 | ED.RN ---
2230: restraints applied to patient after sedation with medication and intubation to protect lines and tubes after she was trying to pull at them. Attempts were made to calm patient with positioning, family at bedside, redirection.
[2023-10-12] MEDS: Norepinephrine 8 MG in 0.9% Normal Saline (250mL Bag) 242 ML 9.4 MG CONT INF (23:42)
[2023-10-13] VITALS (11 sets, daily range): BP systolic 0–78; BP diastolic 0–64; PULSE 0–112; RESP 0–41; TEMP -17.7–0; O2SAT 0–85
[2023-10-13 00:08] LABS: Blood Gas Specimen Type VEN; O2 Delivery Device Adult Vent; PEEP 8; RR 20; SITE Not entered; VBG BASE EXCESS -22 mmol/L (-1.0-3.5); VBG Bicarbonate 10 mmol/L (22-26); VBG PO2 37 mmHg (25-40); VBG SO2 43 % (50-70); VBG TCO2 12 mmol/L (23-33); VBG pCO2 43.9 mmHg (41-51); VBG pH 6.97 (7.32-7.42)
[2023-10-13 00:14] LABS: Lactic Acid 6.8 mmol/L (0.4-1.9)
--- NOTE | 2023-10-13 00:21 | ED.RN ---
0020: provider at bedside to discuss patient status, vitals
--- NOTE | 2023-10-13 00:43 | ED.RN ---
0036: patient extubated, primary provider and respiratory therapy at bedside
[2023-10-13] MEDS: HYDROmorphone 1 MG/ML Syringe IV (00:45)
--- NOTE | 2023-10-13 01:39 | ED.RN ---
0051: time of called with primary doctor
== END 2023-10-13 02:29 ==
PROVIDERS: Emergency Provider Emergency Medicine; PCP Family Medicine; Visit Provider Emergency Medicine
DX: J96.90 Respiratory failure, unspecified, unspecified whether with hypoxia or hypercapnia (principal); R65.21 Severe sepsis with septic shock; A41.9 Sepsis, unspecified organism; I48.0 Paroxysmal atrial fibrillation; N17.9 Acute kidney failure, unspecified; H57.04 Mydriasis; J45.909 Unspecified asthma, uncomplicated; E87.20 Acidosis, unspecified; Z87.891 Personal history of nicotine dependence; Z79.01 Long term (current) use of anticoagulants; Z79.899 Other long term (current) drug therapy
CPT/HCPCS: 31500; 31720; 36600; 51702; 71045; 80053; 81001; 82550; 82803; 83605; 83880; 84478; 84484; 85025; 85610; 85730; 87040; 87070; 87086; 87205; 87631; 93005; 94002; 94640; 96365; 96366; 96367; 96375; 99252; 99285; J7030; J7050; A4216; G0463; J0330